=== PATIENT | female | born 1945 | race Caucasian/White ===

== ENCOUNTER 2018-08-17 15:01 | Emergency (ER) | payer MEDICARE, OTHER ==
[2018-08-17] MEDS ORDERED: FAMOTIDINE 20 MG in SODIUM CHLORIDE 0.9% 50 ML IV STA (15:43)
[2018-08-17] MEDS ORDERED: IOPAMIDOL-300 100 ML VIAL ONE (15:52)
[2018-08-17 15:54] LABS: BASOPHILS % (AUTO) 1.1 %; EOSINOPHILS # (AUTO) 0.1 10^3/uL (0.0-0.7); EOSINOPHILS % (AUTO) 3.5 %; LYMPHOCYTES # (AUTO) 0.9 10^3/uL (1.5-3.5); LYMPHOCYTES % (AUTO) 27.2 %; MEAN CORPUSCULAR HEMOGLOBIN 24.9 pg (27.0-31.0); MEAN CORPUSCULAR HGB CONC 32.2 g/dL (32.0-36.0); MEAN CORPUSCULAR VOLUME 77.2 fL (81.0-99.0); MEAN PLATELET VOLUME 8.7 fL (7.9-10.8); MONOCYTES # (AUTO) 0.3 10^3/uL (0.0-1.0); MONOCYTES % (AUTO) 8.4 %; NEUTROPHILS # (AUTO) 1.9 10^3/uL (1.5-6.6); NEUTROPHILS % (AUTO) 59.8 %; PLT - PLATELET COUNT 178 10^3/uL (130-450); RED BLOOD COUNT 4.82 10^6/uL (4.20-5.40); RED CELL DISTRIBUTION WIDTH 24.3 % (12.0-15.0); WHITE BLOOD COUNT 3.1 x10^3/uL (4.8-10.8)
--- NOTE | 2018-08-17 15:57 | ED Physician Documentation ---
PD HPI ABD PAIN - Stated complaint Stated Complaint: ABD PX - Chief complaint Chief Complaint: Abd Pain - Additional information Additional information: 73-year-old female presents the emergency department with intermittent episodes of epigastric discomfort. Today the patient had an episode of sharp stabbing epigastric pain which is now subsided. The patient has a recent history of a perforated diverticulitis which required exploratory laparotomy. Since that procedure at the end of the April 2018 the patient's had ongoing epigastric discomfort. The patient has also a hiatal hernia. The patient denies chest pain, dyspnea on exertion, vomiting, diarrhea or lower abdominal pain. No other associated symptoms Review of Systems Constitutional: denies: Fever, Chills, Fatigue Eyes: denies: Discharge Ears: denies: Ear pain Nose: denies: Congestion Throat: denies: Sore throat Cardiac: denies: Chest pain / pressure Respiratory: denies: Cough GI: reports: Abdominal Pain, Nausea. denies: Vomiting, Diarrhea : denies: Dysuria Skin: denies: Rash Musculoskeletal: denies: Neck pain Neurologic: denies: Generalized weakness PD PAST MEDICAL HISTORY - Allergies Allergies/Adverse Reactions: Allergies Allergy/AdvReac Type Severity Reaction Status Date / Time epinephrine Allergy Unknown Verified 08/17/18 15:11 erythromycin base Allergy Unknown Verified 08/17/18 15:12 indomethacin Allergy Unknown Verified 08/17/18 15:12 Latex, Natural Rubber Allergy Unknown Verified 08/17/18 15:13 Sulfa (Sulfonamide Allergy Unknown Verified 08/17/18 15:13 Antibiotics) PD ED PE NORMAL - General General: Alert and oriented X 3, No acute distress - HEENT HEENT: Atraumatic, PERRL, EOMI, Ears normal - Cardiac Cardiac: RRR, Strong equal pulses - Respiratory Respiratory: No respiratory distress, Clear bilaterally - Abdomen Abdomen: Soft, Non distended, Other - Derm Derm: Normal color - Extremities Extremities: No deformity - Neuro Neuro: Alert and oriented X 3, Normal speech - Psych Psych: Normal affect Results - Vitals Vitals: Vital Signs - 24 hr 08/17/18 15:06 Temperature 36.5 C Heart Rate 83 Respiratory 14 Rate Blood Pressure 144/81 H O2 Saturation 100 Oxygen O2 Source Room air - EKG (time done) 15:49 Rhythm: NSR Intervals: Normal AR, QRS normal QRS: Normal Ischemia: Normal ST segments - Labs Labs: Laboratory Tests 08/17/18 08/17/18 08/17/18 15:30 15:30 15:30 WBC 3.1 L RBC 4.82 Hgb 12.0 Hct 37.2 MCV 77.2 L MCH 24.9 L MCHC 32.2 RDW 24.3 H Plt Count 178 MPV 8.7 Neut # (Auto) 1.9 Lymph # (Auto) 0.9 L [place] # (Auto) 0.3 Eos # (Auto) 0.1 Baso # (Auto) 0.0 Absolute Nucleated RBC 0.00 Nucleated RBC % 0.0 Manual Slide Review Indicated Platelet Estimate NORMAL (130-450,000) Platelet Morphology NORMAL APPEARANCE RBC Morph Micro Appear 1+ SCHISTOCYTES Sodium 141 Potassium 3.4 L Chloride 105 Carbon Dioxide 26 Anion Gap 10.0 BUN 24 H Creatinine 0.4 Estimated GFR (MDRD) 157 Glucose 94 Calcium 9.1 Total Bilirubin 0.8 AST 32 ALT 32 Alkaline Phosphatase 65 Troponin I < 0.04 Total Protein 7.3 Albumin 4.3 Globulin 3.0 Albumin/Globulin Ratio 1.4 Lipase 23 Urine Color Urine Clarity Urine pH Ur Specific [place] Urine Protein Urine Glucose (UA) Urine Ketones Urine Occult Blood Urine Nitrite Urine Bilirubin Urine Urobilinogen Ur Leukocyte Esterase Ur Microscopic Review Urine Culture Comments 08/17/18 16:08 WBC RBC Hgb Hct MCV MCH MCHC RDW Plt Count MPV Neut # (Auto) Lymph # (Auto) [place] # (Auto) Eos # (Auto) Baso # (Auto) Absolute Nucleated RBC Nucleated RBC % Manual Slide Review Platelet Estimate Platelet Morphology RBC Morph Micro Appear Sodium Potassium Chloride Carbon Dioxide Anion Gap BUN Creatinine Estimated GFR (MDRD) Glucose Calcium Total Bilirubin AST ALT Alkaline Phosphatase Troponin I Total Protein Albumin Globulin Albumin/Globulin Ratio Lipase Urine Color YELLOW Urine Clarity CLEAR Urine pH 7.0 Ur Specific [place] 1.010 Urine Protein NEGATIVE Urine Glucose (UA) NEGATIVE Urine Ketones TRACE Urine Occult Blood NEGATIVE Urine Nitrite NEGATIVE Urine Bilirubin NEGATIVE Urine Urobilinogen 0.2 (NORMAL) Ur Leukocyte Esterase NEGATIVE Ur Microscopic Review NOT INDICATED Urine Culture Comments NOT INDICATED - Rads (name of study) CT abd/pelvis Radiology: Final report received, See rad report (IMPRESSION: 1. No acute intra- abdominal abnormality identified. Mild hiatal hernia seen. 2. Mild sigmoid diverticulosis without evidence of acute diverticulitis. Some mild diffuse wall thickening of the sigmoid colon may represent changes related to chronic diverticular disease. ) PD MEDICAL DECISION MAKING - ED course ED course: On reevaluation the patient is resting comfortably and appears to be in no acute distress. The patient's workup does not reveal any acute abnormality that would necessitate admission to the hospital or acute surgical consultation. Presently the patient appears appropriate for discharge with outpatient with her riddler operator as scheduled on September 01. The patient will return to the emergency department immediately for any worsening or any concerns follow-up Departure - Departure Disposition: 01 Home, Self Care Clinical Impression: Hiatal hernia, Diverticulosis Abdominal pain Qualifiers: Abdominal location: unspecified location Qualified Code(s): R10.9 - Unspecified abdominal pain Condition: Good Instructions: Abdominal Pain, Hiatal Hernia Follow-Up: Kimberly Mg MD [Primary Care Provider] - Within 1 week Comments: Please return to the emergency department for worsening symptoms or any concerns
[2018-08-17 16:01] LABS: ALBUMIN 4.3 g/dL (3.2-5.5); ALBUMIN/GLOBULIN RATIO 1.4 (1.0-2.2); BILIRUBIN,TOTAL 0.8 mg/dL (0.2-1.0); CALCIUM 9.1 mg/dL (8.5-10.3); CREATININE 0.4 mg/dL (0.4-1.0); TOTAL PROTEIN 7.3 g/dL (6.7-8.2)
[2018-08-17 16:23] LABS: BILIRUBIN,URINE NEGATIVE (NEGATIVE); GLUCOSE, URINE (UA) NEGATIVE (NEGATIVE); KETONES,URINE (UA) TRACE mg/dL (NEGATIVE); LEUKOCYTE ESTERASE, URINE NEGATIVE (NEGATIVE); NITRITE,URINE NEGATIVE (NEGATIVE); OCCULT BLOOD,URINE NEGATIVE (NEGATIVE); PROTEIN,URINE NEGATIVE (NEGATIVE); UROBILINOGEN,URINE 0.2 (NORMAL) E.U./dL (NORMAL)
[2018-08-17 16:24] LABS: CLARITY,URINE CLEAR (CLEAR)
[2018-08-17 16:39] LABS: PLATELET ESTIMATE, MANUAL NORMAL (130-450,000) (NORMAL); PLATELET MORPHOLOGY NORMAL APPEARANCE (NORMAL)
[2018-08-17] MEDS ORDERED: IOPAMIDOL-300 100 ML VIAL IVP ONE (16:58)
--- NOTE | 2018-08-17 17:03 | CT Report ---
Reason: epigastric pain Procedure Date: 08/17/2018 Accession Number: [id number] / [id number] Procedure: CT - Abdomen/Pelvis W CPT Code: FULL RESULT: EXAM: CT ABDOMEN AND PELVIS EXAM DATE: 08/17/2018 04:31 PM. CLINICAL HISTORY: Epigastric pain. COMPARISONS: None. TECHNIQUE: Routine helical CT imaging was performed through the abdomen and pelvis. IV contrast: 100 mL Isovue 300. Enteric contrast: No. Reconstructions: Coronal and sagittal. In accordance with CT protocol optimization, one or more of the following dose reduction techniques were utilized for this exam: automated exposure control, adjustment of mA and/or KV based on patient size, or use of iterative reconstructive technique. FINDINGS: Lung Bases: Mild hiatal hernia. Liver: Normal. No masses. Gallbladder/Bile Ducts: Unremarkable. Spleen: Normal. Pancreas: Normal. Adrenal Glands: Normal. Kidneys: Normal. No masses or hydronephrosis. Peritoneal Cavity/Bowel: There is mild predominantly sigmoid diverticulosis without evidence of acute diverticulitis. Some mild wall thickening is seen which may represent changes related to chronic diverticular disease. There is no obstruction or ileus. No free fluid or free air. The appendix is not visualized, however, no inflammatory changes are seen in the right lower quadrant region. Pelvic Organs: The uterus is not visualized, either surgically absent or atrophic. The bladder and visualized pelvic organs are within normal limits. Vasculature: No aneurysms or other significant abnormality. Bones: Diffuse degenerative and scoliotic changes are seen in the spine. No acute osseous abnormality is demonstrated. Other: None. IMPRESSION: 1. No acute intra-abdominal abnormality identified. Mild hiatal hernia seen. 2. Mild sigmoid diverticulosis without evidence of acute diverticulitis. Some mild diffuse wall thickening of the sigmoid colon may represent changes related to chronic diverticular disease. RADIA
[2018-08-17 17:54] VITALS: BP 139/72
== END 2018-08-17 17:55 | disposition home or self-care (01) ==
LOC: ED 15:01
DX: K57.30 Diverticulosis of large intestine without perforation or abscess without bleeding (principal); K44.9 Diaphragmatic hernia without obstruction or gangrene
CPT/HCPCS: 36415; 74177; 80053; 81003; 83690; 84484; 85025; 93005; 96365; 99283; 99284; J7040; Q9967; 81001; 87086

== ENCOUNTER 2018-08-19 14:44 | Emergency (ER) | payer MEDICARE, OTHER ==
[2018-08-19] MEDS ORDERED: ONDANSETRON 4 MG/2 ML VIAL IVP STA (16:55)
[2018-08-19] MEDS ORDERED: SODIUM CHLORIDE 0.9% 1,000 ML IV ONE (16:55)
[2018-08-19] MEDS ORDERED: FAMOTIDINE 20 MG in SODIUM CHLORIDE 0.9% 50 ML IV STA (17:08)
--- NOTE | 2018-08-19 17:12 | ED Physician Documentation ---
History of Present Illness - Stated complaint Stated Complaint: NAUSEA/DIZZY - Chief complaint Chief Complaint: Abd Pain - Additonal information Additional information: 73-year-old female presents the emergency department for evaluation of general weakness and nausea which started earlier today. The patient reports a overwhelming sense of general weakness and nausea. The patient denies any chest pain, palpitations or near syncopal episodes. The patient has a history of abdominal cramping and today reports episodes of cramping but denies any ongoing continuous abdominal discomfort. No reports of fever, vomiting, diarrhea or dysuria. Symptoms are described as moderate. No relieving factors. No other associated symptoms Review of Systems Constitutional: reports: Fatigue Eyes: denies: Discharge Ears: denies: Ear pain Nose: denies: Congestion Throat: denies: Sore throat Cardiac: denies: Chest pain / pressure Respiratory: denies: Cough GI: reports: Nausea : denies: Dysuria Skin: denies: Lesions Musculoskeletal: denies: Neck pain, Back pain Neurologic: reports: Generalized weakness PD PAST MEDICAL HISTORY - Past Medical History GI: Diverticulitis - Past Surgical History Past Surgical History: Yes General: Bowel surgery - Present Medications Home Medications: Ambulatory Orders Medication Instructions Recorded Confirmed Ondansetron Odt [Zofran] 4 mg TL Q6H PRN #30 tablet 08/19/18 - Allergies Allergies/Adverse Reactions: Allergies Allergy/AdvReac Type Severity Reaction Status Date / Time epinephrine Allergy Unknown Verified 08/19/18 14:48 erythromycin base Allergy Unknown Verified 08/19/18 14:48 indomethacin Allergy Unknown Verified 08/19/18 14:48 Latex, Natural Rubber Allergy Unknown Verified 08/19/18 14:48 Sulfa (Sulfonamide Allergy Unknown Verified 08/19/18 14:48 Antibiotics) - Social History Does the pt smoke?: No Smoking Status: Never smoker Does the pt drink ETOH?: No Does the pt have substance abuse?: No PD ED PE NORMAL - General General: Alert and oriented X 3, No acute distress - HEENT HEENT: Atraumatic, PERRL, EOMI, Ears normal, Pharynx benign - Cardiac Cardiac: RRR, Strong equal pulses - Respiratory Respiratory: No respiratory distress, Clear bilaterally - Abdomen Abdomen: Soft, Non tender, Non distended - Derm Derm: Normal color - Extremities Extremities: No deformity - Neuro Neuro: Alert and oriented X 3, Normal speech - Psych Psych: Normal affect Results - Vitals Vitals: Vital Signs - 24 hr 08/19/18 08/19/18 08/19/18 14:48 18:02 20:28 Temperature 36.6 C 37.2 C 37.1 C Heart Rate 98 80 95 Respiratory 16 20 14 Rate Blood Pressure 121/97 H 123/83 H 122/74 O2 Saturation 100 100 98 Oxygen O2 Source Room air - EKG (time done) 17:16 Rate: Rate (enter#) Rhythm: NSR Intervals: Normal [place] QRS: Normal Ischemia: Normal ST segments - Labs Labs: Laboratory Tests 08/19/18 08/19/18 08/19/18 17:10 17:10 17:10 WBC 8.9 RBC 5.18 Hgb 13.1 Hct 40.2 MCV 77.7 L MCH 25.2 L MCHC 32.5 RDW 24.3 H Plt Count 168 MPV 9.2 Neut # (Auto) 8.3 H Lymph # (Auto) 0.3 L [place] # (Auto) 0.3 Eos # (Auto) 0.0 Baso # (Auto) 0.0 Absolute Nucleated RBC 0.01 Nucleated RBC % 0.1 Manual Slide Review Indicated WBC Morphology NORMAL APPEARANCE Platelet Estimate NORMAL (130-450,000) Platelet Morphology NORMAL APPEARANCE RBC Morph Micro Appear 1+ MICROCYTOSIS Sodium 139 Potassium 3.6 Chloride 105 Carbon Dioxide 25 Anion Gap 9.0 BUN 32 H Creatinine 0.3 L Estimated GFR (MDRD) 219 Glucose 100 Calcium 9.3 Total Bilirubin 0.7 AST 33 ALT 29 Alkaline Phosphatase 71 Troponin I < 0.04 Total Protein 7.6 Albumin 4.4 Globulin 3.2 Albumin/Globulin Ratio 1.4 Lipase 26 Urine Color Urine Clarity Urine pH Ur Specific [place] Urine Protein Urine Glucose (UA) Urine Ketones Urine Occult Blood Urine Nitrite Urine Bilirubin Urine Urobilinogen Ur Leukocyte Esterase Ur Microscopic Review Urine Culture Comments Influenza A (Rapid) Influenza B (Rapid) 08/19/18 08/19/18 17:56 19:00 WBC RBC Hgb Hct MCV MCH MCHC RDW Plt Count MPV Neut # (Auto) Lymph # (Auto) [place] # (Auto) Eos # (Auto) Baso # (Auto) Absolute Nucleated RBC Nucleated RBC % Manual Slide Review WBC Morphology Platelet Estimate Platelet Morphology RBC Morph Micro Appear Sodium Potassium Chloride Carbon Dioxide Anion Gap BUN Creatinine Estimated GFR (MDRD) Glucose Calcium Total Bilirubin AST ALT Alkaline Phosphatase Troponin I Total Protein Albumin Globulin Albumin/Globulin Ratio Lipase Urine Color YELLOW Urine Clarity CLEAR Urine pH 7.0 Ur Specific [place] 1.015 Urine Protein NEGATIVE Urine Glucose (UA) NEGATIVE Urine Ketones 15 H Urine Occult Blood NEGATIVE Urine Nitrite NEGATIVE Urine Bilirubin NEGATIVE Urine Urobilinogen 0.2 (NORMAL) Ur Leukocyte Esterase NEGATIVE Ur Microscopic Review NOT INDICATED Urine Culture Comments NOT INDICATED Influenza A (Rapid) Negative Influenza B (Rapid) Negative PD MEDICAL DECISION MAKING - ED course ED course: On reevaluation the patient is resting comfortably appears to be in no acute distress. Presently the patient appears appropriate for discharge and ongoing outpatient management. The patient will return to the emergency department immediately for any worsening or any concerns. Otherwise patient will follow up with primary care Departure - Departure Disposition: 01 Home, Self Care Clinical Impression: Weakness Nausea & vomiting Qualifiers: Vomiting type: unspecified Vomiting Intractability: non-intractable Qualified Code(s): R11.2 - Nausea with vomiting, unspecified Condition: Good Instructions: ED Nausea Vomiting Ch, Abdominal Pain Follow-Up: Kimberly Mg MD [Primary Care Provider] - Within 1 week Prescriptions: Ondansetron Odt [Zofran] 4 mg TL Q6H PRN #30 tablet PRN Reason: Nausea / Vomiting Comments: Please return to the emergency department for worsening symptoms or any concerns
[2018-08-19 17:30] LABS: BASOPHILS % (AUTO) 0.3 %; EOSINOPHILS % (AUTO) 0.5 %; HGB - HEMOGLOBIN 13.1 g/dL (12.0-16.0); LYMPHOCYTES # (AUTO) 0.3 10^3/uL (1.5-3.5); LYMPHOCYTES % (AUTO) 3.1 %; MEAN CORPUSCULAR HEMOGLOBIN 25.2 pg (27.0-31.0); MEAN CORPUSCULAR HGB CONC 32.5 g/dL (32.0-36.0); MEAN CORPUSCULAR VOLUME 77.7 fL (81.0-99.0); MEAN PLATELET VOLUME 9.2 fL (7.9-10.8); MONOCYTES # (AUTO) 0.3 10^3/uL (0.0-1.0); MONOCYTES % (AUTO) 3.4 %; NEUTROPHILS # (AUTO) 8.3 10^3/uL (1.5-6.6); NEUTROPHILS % (AUTO) 92.7 %; PLT - PLATELET COUNT 168 10^3/uL (130-450); RED BLOOD COUNT 5.18 10^6/uL (4.20-5.40); RED CELL DISTRIBUTION WIDTH 24.3 % (12.0-15.0); WHITE BLOOD COUNT 8.9 x10^3/uL (4.8-10.8)
[2018-08-19 17:49] LABS: PLATELET ESTIMATE, MANUAL NORMAL (130-450,000) (NORMAL); PLATELET MORPHOLOGY NORMAL APPEARANCE (NORMAL)
[2018-08-19 17:50] LABS: ALBUMIN 4.4 g/dL (3.2-5.5); ALBUMIN/GLOBULIN RATIO 1.4 (1.0-2.2); BILIRUBIN,TOTAL 0.7 mg/dL (0.2-1.0); CALCIUM 9.3 mg/dL (8.5-10.3); CREATININE 0.3 mg/dL (0.4-1.0); TOTAL PROTEIN 7.6 g/dL (6.7-8.2)
[2018-08-19] MEDS: ONDANSETRON ODT 4 MG TABLET TL STA ×2 (18:03→20:50)
[2018-08-19] MEDS ORDERED: METOCLOPRAMIDE 10 MG/2 ML VIAL IVP STA (18:04)
[2018-08-19 19:11] LABS: BILIRUBIN,URINE NEGATIVE (NEGATIVE); GLUCOSE, URINE (UA) NEGATIVE (NEGATIVE); KETONES,URINE (UA) 15 mg/dL (NEGATIVE); LEUKOCYTE ESTERASE, URINE NEGATIVE (NEGATIVE); NITRITE,URINE NEGATIVE (NEGATIVE); OCCULT BLOOD,URINE NEGATIVE (NEGATIVE); PROTEIN,URINE NEGATIVE (NEGATIVE); UROBILINOGEN,URINE 0.2 (NORMAL) E.U./dL (NORMAL)
[2018-08-19 19:13] LABS: CLARITY,URINE CLEAR (CLEAR)
[2018-08-19 20:28] VITALS: BP 122/74
[2018-08-19] MEDS ORDERED: diphenhydrAMINE INJ 50 MG/ML VIAL IVP STA (20:35)
[2018-08-19] MEDS ORDERED: PROMETHAZINE INJ 25 MG in SODIUM CHLORIDE 0.9% 50 ML IV STA (20:35)
[2018-08-19] MEDS ORDERED: ONDANSETRON ODT 4 MG Prepack 2 TL PRN (20:48)
== END 2018-08-19 20:55 | disposition home or self-care (01) ==
LOC: ED 14:44
DX: R53.1 Weakness (principal); R11.2 Nausea with vomiting, unspecified
CPT/HCPCS: 36415; 80053; 81003; 83690; 84484; 85025; 87275; 87276; 93005; 96365; 96375; 99283; J2765; J7040; Q0162; 81001; 87086

== ENCOUNTER 2018-12-27 13:15 | Outpatient (CLI) | payer MEDICARE, OTHER ==
[2018-12-27 13:38] LABS: BILIRUBIN,URINE NEGATIVE (NEGATIVE); LEUKOCYTE ESTERASE, URINE MODERATE (NEGATIVE); NITRITE,URINE POSITIVE (NEGATIVE); OCCULT BLOOD,URINE NEGATIVE (NEGATIVE); PROTEIN,URINE >=300 mg/dL (NEGATIVE)
[2018-12-27 13:54] LABS: CLARITY,URINE CLEAR (CLEAR); RBC,URINE None Seen /HPF (0-5)
[2018-12-27 13:55] LABS: BACTERIA,URINE Moderate /HPF (None Seen); CASTS, URINE 0-2 Cellular Casts /LPF; SQUAMOUS EPITHELIAL CELL,UR NONE SEEN (<= Few)
== END 2018-12-27 13:16 | disposition home or self-care (01) ==
LOC: LAB 13:15
PROVIDERS: ATTEND Urology
DX: R30.0 Dysuria (principal)
CPT/HCPCS: 81001; 87077; 87086; 87181

== ENCOUNTER 2019-04-09 07:48 | Emergency (ER) | payer MEDICARE, OTHER ==
--- NOTE | 2019-04-09 08:08 | ED Physician Documentation ---
PD HPI FEMALE - Stated complaint Stated Complaint: FEMALE - Chief complaint Chief Complaint: UTI - History obtained from History obtained from: Patient - History of Present Illness Timing - onset: How many days ago (3) Timing - duration: Days (3) Timing - details: Gradual onset, Still present Associated symptoms: Dysuria, Urinary frequency. No: Fever, Abdominal pain, Back pain, Hematuria Similar symptoms before: Diagnosis Recently seen: Clinic - Additional information Additional information: This is a 74-year-old woman who presents with complaints that she was diagnosed with urinary tract infection on Wednesday at a clinic they prescribed an antibiotic that is not covered by her insurance and is over $2000 in the liquid form. She cannot swallow pills because she is a history of polio that affects her ability to swallow. For that reason she also drinks limited amounts of water. Patient has not had any fever. Denies any abdominal pain. Denies back pain or nausea. There is significant burning with urination but no hematuria. She did develop some diarrhea last night but she thinks that in response to everything associated with the stress of these recurrent UTIs since she was hospitalized for sepsis last April. She did have a cystoscopy by urologist in November and then she got a bladder infection 3 days later. That ended up being cleared with amoxicillin. On March 27 she went to a clinic and had a positive urinalysis but no culture was obtained. She was treated with amoxicillin for 7 days that ended on April 03 and for 3 days she felt fine until the symptoms recurred again 3 days ago. Review of Systems Constitutional: denies: Fever GI: denies: Abdominal Pain, Nausea, Vomiting : reports: Dysuria. denies: Unable to Void, Hematuria Skin: denies: Rash Musculoskeletal: denies: Back pain Neurologic: reports: Other (She has a history of bulbar and spinal polio. She uses crutches to ambulate) PD PAST MEDICAL HISTORY - Past Medical History GI: Diverticulitis - Past Surgical History Past Surgical History: Yes General: Bowel surgery - Present Medications Home Medications: Ambulatory Orders Medication Instructions Recorded Confirmed Ondansetron Odt [Zofran] 4 mg TL Q6H PRN #30 tablet 08/19/18 Cephalexin Suspension [Keflex] 500 mg PO QID #400 ml 04/09/19 - Allergies Allergies/Adverse Reactions: Allergies Allergy/AdvReac Type Severity Reaction Status Date / Time epinephrine Allergy Unknown Verified 04/09/19 08:03 erythromycin base Allergy Unknown Verified 04/09/19 08:03 indomethacin Allergy Unknown Verified 04/09/19 08:03 Latex, Natural Rubber Allergy Unknown Verified 04/09/19 08:03 Sulfa (Sulfonamide Allergy Unknown Verified 04/09/19 08:03 Antibiotics) - Social History Does the pt smoke?: No Smoking Status: Never smoker Does the pt drink ETOH?: No Does the pt have substance abuse?: No PD ED PE NORMAL - Vitals Vital signs reviewed: Yes - General General: Alert and oriented X 3, No acute distress, Well developed/nourished - HEENT HEENT: Atraumatic, Moist mucous membranes, Other (No scleral icterus) - Abdomen Abdomen: Soft, Non tender - Back Back: No CVA TTP, Other (There is significant scoliosis.) - Derm Derm: Normal color, No rash - Neuro Neuro: Alert and oriented X 3, tennis court attendant 2-12 intact, Normal speech - Psych Psych: Normal mood, Normal affect Results - Vitals Vitals: Vital Signs - 24 hr 04/09/19 08:01 Temperature 37.0 C Heart Rate 93 Respiratory 15 Rate Blood Pressure 144/67 H O2 Saturation 95 Oxygen O2 Source Room air - Labs Labs: Laboratory Tests 04/09/19 08:05 Urine Color DK. ORANGE Urine Clarity HAZY Urine pH Ur Specific [place] Urine Protein Urine Glucose (UA) Urine Ketones Urine Occult Blood Urine Nitrite Urine Bilirubin COLOR INTERFERENCE Urine Urobilinogen Ur Leukocyte Esterase Urine RBC 0-5 Urine WBC >25 H Urine WBC Clumps PRESENT Ur Epithelial Cells FEW Transitional Ur Squamous Epith Cells FEW Squamous Urine Bacteria Moderate H Ur Microscopic Review INDICATED Urine Culture Comments INDICATED PD MEDICAL DECISION MAKING - ED course Complexity details: reviewed results, d/w patient ED course: Patient does have a urinary tract infection. Culture has been ordered. Will empirically start her on Keflex liquid 4 times a day for 10 days. Will adjust if needed based on the culture. I recommended that she have the urine retested after finishing the antibiotic to make sure that the infection has cleared. She needs to try and push herself to drink as much water as possible. Departure - Departure Disposition: 01 Home, Self Care Clinical Impression: Urinary tract infection Qualifiers: Urinary tract infection type: acute cystitis Hematuria presence: without hematuria Qualified Code(s): N30.00 - Acute cystitis without hematuria Condition: Good Instructions: ED UTI Cystitis Female Follow-Up: Kimberly Mg MD [Primary Care Provider] - Prescriptions: Cephalexin Suspension [Keflex] 500 mg PO QID #400 ml Comments: Take the antibiotic as prescribed. Drink as much water as you can to flush through the kidneys. Take vitamin C 500 mg 3 times a day. Continue your probiotics and consider switching tablets to get an array of bacteria. Consider a cranberry supplement as a preventative for further urinary tract infections. You should follow-up with your primary care provider and have the urine retested after you finish this antibiotic to make sure that the infection has been cleared. We have cultured the urine and will contact you if we need to change the antibiotic. Follow-up if your symptoms are worsening to include back pain, fever, vomiting or other problems arise.
[2019-04-09 08:28] LABS: CLARITY,URINE HAZY (CLEAR)
[2019-04-09 08:29] LABS: BILIRUBIN,URINE COLOR INTERFERENCE (NEGATIVE)
[2019-04-09 08:41] LABS: RBC,URINE 0-5 /HPF (0-5); SQUAMOUS EPITHELIAL CELL,UR FEW Squamous (<= Few); WBC CLUMPS,URINE PRESENT
[2019-04-09 08:44] LABS: BACTERIA,URINE Moderate /HPF (None Seen)
[2019-04-09] MEDS ORDERED: HYDROmorphone 1 MG/ML CARPUJECT IVP STA (09:05)
[2019-04-09] MEDS ORDERED: ONDANSETRON 4 MG/2 ML VIAL IVP STA (09:05)
[2019-04-09 09:12] VITALS: BP 142/66
== END 2019-04-09 09:13 | disposition home or self-care (01) ==
LOC: ED 07:48
DX: N30.00 Acute cystitis without hematuria (principal)
CPT/HCPCS: 81001; 81003; 87086; 87181; 99283; 99284

== ENCOUNTER 2019-04-14 00:32 | Inpatient (IN) | payer MEDICARE, OTHER ==
--- NOTE | 2019-04-14 00:50 | ED Physician Documentation ---
PD HPI ABD PAIN - Stated complaint Stated Complaint: FEVER/ABD PX - Chief complaint Chief Complaint: Abd Pain - History obtained from History obtained from: Patient - History of Present Illness Timing - onset: Today Timing - duration: Hours Timing - details: Gradual onset Pain level now: 5 Quality: Pain Location: RLQ Radiation: Other (does not radiate) Improved by: Laying still Worsened by: Moving, Palpation Associated symptoms: Fever (100.6). No: Nausea, Vomiting, Diarrhea, Constipation Similar symptoms before: Has not had sx before Recently seen: Emergency Dept - Additional information Additional information: T+R from this ED 4 days ago for UTI, and continues to take the keflex as prescribed. Urine culture grew E.Coli which is sensitive to cefazolin. She says her symptoms of urinary frequency and burning dysuria have significantly improved. She returns because part of d/c instructions were to return if fever, and she has developed 100.6 fever tonight along with mild RLQ pain which she has had since this morning. Review of Systems Constitutional: reports: Fever, Chills. denies: Sweats Eyes: reports: Reviewed and negative Ears: reports: Reviewed and negative Nose: reports: Reviewed and negative Throat: reports: Reviewed and negative Cardiac: reports: Reviewed and negative Respiratory: reports: Reviewed and negative GI: reports: Abdominal Pain. denies: Nausea, Vomiting, Constipation, Diarrhea : reports: Dysuria, Frequency Skin: reports: Reviewed and negative Musculoskeletal: denies: Back pain Neurologic: reports: Reviewed and negative PD PAST MEDICAL HISTORY - Past Medical History Past Medical History: Yes GI: Diverticulitis - Past Surgical History Past Surgical History: Yes General: Bowel surgery - Present Medications Home Medications: Ambulatory Orders Medication Instructions Recorded Confirmed Cephalexin Suspension [Keflex] 500 mg PO QID #400 ml 04/09/19 04/14/19 Aspirin Chewable [St Prince 81 mg PO DAILY 04/14/19 04/14/19 Aspirin] Calcium Carb/Vitamin D3/Vit K1 1 cap PO DAILY 04/14/19 04/14/19 [Viactiv 650 mg-12.5 Mcg Chew] Meloxicam [Qmiiz Odt] 7.5 mg PO DAILY 04/14/19 04/14/19 [place]-3/Dha/Epa/Fish Oil [Fish Oil 1 cap PO DAILY 11/15/19 11/15/19 1,000 mg Softgel] Omeprazole 40 mg PO DAILY 04/14/19 04/14/19 - Allergies Allergies/Adverse Reactions: Allergies Allergy/AdvReac Type Severity Reaction Status Date / Time epinephrine Allergy Unknown Verified 04/14/19 00:50 erythromycin base Allergy Rash Verified 04/14/19 09:15 indomethacin Allergy Unknown Verified 04/14/19 00:50 Latex, Natural Rubber Allergy Rash Verified 04/14/19 09:15 Sulfa (Sulfonamide Allergy Dizziness Verified 04/14/19 09:15 Antibiotics) - Social History Does the pt smoke?: No Smoking Status: Never smoker Does the pt drink ETOH?: No Does the pt have substance abuse?: No PD ED PE NORMAL - Vitals Vital signs reviewed: Yes - General General: Alert and oriented X 3, No acute distress, Well developed/nourished - HEENT HEENT: Moist mucous membranes - Neck Neck: Supple, no meningeal sign - Cardiac Cardiac: RRR, No murmur - Respiratory Respiratory: No respiratory distress, Clear bilaterally - Abdomen Abdomen: Soft, Non distended, Other (RLQ tenderness without rebound or guarding) - Back Back: No CVA TTP - Derm Derm: Normal color, Warm and dry Results - Vitals Vitals: Vital Signs - 24 hr 04/14/19 04/14/19 04/14/19 00:35 00:50 03:08 Temperature 36.8 C 36.8 C Heart Rate 109 H 99 82 Respiratory 16 15 15 Rate Blood Pressure 131/80 H 140/61 H 120/62 O2 Saturation 98 99 100 04/14/19 04/14/19 06:24 09:19 Temperature 37.4 C 38.8 C H Heart Rate 99 99 Respiratory 15 20 Rate Blood Pressure 115/66 113/53 L O2 Saturation 100 97 Oxygen O2 Source Room air - Labs Labs: Laboratory Tests 04/14/19 04/14/19 04/14/19 00:41 00:55 00:55 WBC 11.7 H RBC 3.68 L Hgb 10.9 L Hct 36.1 L MCV 98.1 MCH 29.6 MCHC 30.2 L RDW 14.8 Plt Count 208 MPV 10.4 Neut # (Auto) 10.1 H Lymph # (Auto) 0.7 L [place] # (Auto) 0.7 Eos # (Auto) 0.1 Baso # (Auto) 0.1 Absolute Nucleated RBC 0.00 Nucleated RBC % 0.0 Sodium 139 Potassium 3.5 Chloride 103 Carbon Dioxide 27 Anion Gap 9.0 BUN 25 H Creatinine 0.5 Estimated GFR (MDRD) 121 Glucose 113 H Calcium 9.0 Total Bilirubin 2.4 H AST 31 ALT 30 Alkaline Phosphatase 68 Total Protein 7.4 Albumin 4.1 Globulin 3.3 Albumin/Globulin Ratio 1.2 Lipase 30 Urine Color YELLOW Urine Clarity CLEAR Urine pH 7.5 Ur Specific [place] 1.010 Urine Protein NEGATIVE Urine Glucose (UA) NEGATIVE Urine Ketones TRACE Urine Occult Blood TRACE-INTA Urine Nitrite NEGATIVE Urine Bilirubin NEGATIVE Urine Urobilinogen 0.2 (NORMAL) Ur Leukocyte Esterase NEGATIVE Ur Microscopic Review NOT INDICATED Urine Culture Comments NOT INDICATED - Rads (name of study) CT A/P Radiology: Prelim report reviewed, See rad report PD MEDICAL DECISION MAKING - ED course Complexity details: reviewed old records, reviewed results, re-evaluated patient, considered differential, d/w patient ED course: D/W Dr. Dunlap. Plan is to hold in ED until the AM and reevaluate at that time. Chief concern is whether the CT represents early appendicitis, as the results are equivocal. During ED stay, her RLQ pain gradually worsened as did her tenderness on exam. Dr. Dunlap evaluated patient in ED and plan is to perform appendectomy. Departure - Departure Disposition: ED Transfer to [facility]
[2019-04-14 00:55] LABS: BILIRUBIN,URINE NEGATIVE (NEGATIVE); GLUCOSE, URINE (UA) NEGATIVE (NEGATIVE); KETONES,URINE (UA) TRACE mg/dL (NEGATIVE); LEUKOCYTE ESTERASE, URINE NEGATIVE (NEGATIVE); NITRITE,URINE NEGATIVE (NEGATIVE); OCCULT BLOOD,URINE TRACE-INTA (NEGATIVE); PH,URINE 7.5 PH (5.0-7.5); PROTEIN,URINE NEGATIVE (NEGATIVE); UROBILINOGEN,URINE 0.2 (NORMAL) E.U./dL (NORMAL)
[2019-04-14 01:01] LABS: CLARITY,URINE CLEAR (CLEAR)
[2019-04-14] MEDS ORDERED: IOVERSOL 320 100 ML VIAL IVP ONE ×2 (01:23→02:12)
[2019-04-14 01:30] LABS: BASOPHILS # (AUTO) 0.1 10^3/uL (0.0-0.1); BASOPHILS % (AUTO) 0.4 %; EOSINOPHILS # (AUTO) 0.1 10^3/uL (0.0-0.7); EOSINOPHILS % (AUTO) 1.2 %; HGB - HEMOGLOBIN 10.9 g/dL (12.0-16.0); LYMPHOCYTES # (AUTO) 0.7 10^3/uL (1.5-3.5); LYMPHOCYTES % (AUTO) 5.5 %; MEAN CORPUSCULAR HEMOGLOBIN 29.6 pg (27.0-31.0); MEAN CORPUSCULAR HGB CONC 30.2 g/dL (32.0-36.0); MEAN CORPUSCULAR VOLUME 98.1 fL (81.0-99.0); MEAN PLATELET VOLUME 10.4 fL (7.9-10.8); MONOCYTES # (AUTO) 0.7 10^3/uL (0.0-1.0); MONOCYTES % (AUTO) 5.6 %; NEUTROPHILS # (AUTO) 10.1 10^3/uL (1.5-6.6); NEUTROPHILS % (AUTO) 86.5 %; PLT - PLATELET COUNT 208 10^3/uL (130-450); RED BLOOD COUNT 3.68 10^6/uL (4.20-5.40); RED CELL DISTRIBUTION WIDTH 14.8 % (12.0-15.0); WHITE BLOOD COUNT 11.7 x10^3/uL (4.8-10.8)
[2019-04-14 01:41] LABS: ALBUMIN 4.1 g/dL (3.2-5.5); ALBUMIN/GLOBULIN RATIO 1.2 (1.0-2.2); BILIRUBIN,TOTAL 2.4 mg/dL (0.2-1.0); CREATININE 0.5 mg/dL (0.4-1.0); TOTAL PROTEIN 7.4 g/dL (6.7-8.2)
--- NOTE | 2019-04-14 02:31 | CT Report ---
Reason: RLQ pain, tenderness Procedure Date: 04/14/2019 Accession Number: [id number] / [id number] Procedure: CT - Abdomen/Pelvis W CPT Code: Addended Final Report FULL RESULT: EXAM: CT ABDOMEN AND PELVIS EXAM DATE: 04/14/2019 02:08 AM CLINICAL HISTORY: RLQ pain, tenderness. COMPARISONS: ABDOMEN/PELVIS W/ 08/17/2018 4:16 PM. TECHNIQUE: Routine helical CT imaging was performed through the abdomen and pelvis. IV contrast: 100 mL Optiray 320. Enteric contrast: No. Reconstructions: Coronal and sagittal. In accordance with CT protocol optimization, one or more of the following dose reduction techniques were utilized for this exam: automated exposure control, adjustment of mA and/or KV based on patient size, or use of iterative reconstructive technique. FINDINGS: FINDINGS: ABDOMEN: Liver: No significant abnormality. Stomach and Distal Esophagus: There is a small hiatal hernia. Gallbladder: No significant abnormality. Bile Ducts: No significant abnormality. Pancreas: No significant abnormality. Spleen: No significant abnormality. Kidneys: No suspicious solid appearing lesion. No hydronephrosis. Adrenals: No significant abnormality. Bowel: No obstruction. Long segment wall thickening of the sigmoid colon is noted with adjacent subtle stranding (image 63 series 3). There is moderate to severe sigmoid diverticulosis. Moderate to large amount of retained colonic fecal matter is noted. Moderate wall thickening of the cecum is noted (image 60 series 3). Appendix: Not identified. Lymph Nodes: No pathologically enlarged nodes. Vasculature: Normal caliber aorta. Fluid: No significant free fluid. Abdominal Wall: No significant abnormality. Other: No significant abnormality. PELVIS: Uterus and Ovaries: Surgically absent uterus. Ovaries are not visualized, possibly surgically absent as well. Bladder: No significant abnormality. Lymph Nodes: No pathologically enlarged nodes. Fluid: No significant free fluid. Other: Atrophy of the left lower extremity noted, probably a sequela of hemiparesis. BONES: No suspicious bony lesions. Moderate to severe left convex scoliosis of the lumbar spine centered at L2-L3. Multilevel degenerative change. LOWER CHEST: No significant consolidation or effusion. IMPRESSION: 1. Moderate wall thickening at the base of the cecum is noted. This is worrisome for an infectious process. Neoplasm is difficult to exclude with certainty. 2. Appendix is not identified with certainty. 3. There is long segment wall thickening of the sigmoid colon with subtle adjacent stranding. This may represent mild chronic diverticulitis. There is a component of this that is secondary to chronic smooth muscle hypertrophy from constipation. There is a large amount of retained colonic fecal matter, suggestive of constipation. 4. There is a small hiatal hernia. 5. No small bowel obstruction demonstrated. No kidney stone or hydronephrosis. RADIA ADDENDUM: 04/14/19 03:[address] Barney Galindo at 2:45 AM. With regards to the cecal abnormality, as mentioned on my prior report, infection and neoplasm are in the differential diagnosis. Since the appendix could not be identified with certainty, a combined appendiceal and cecal infectious process may also be responsible. Correlation with recent colonoscopy findings would be helpful.
--- NOTE | 2019-04-14 06:02 | Ultrasound Report ---
Reason: elevated bilirubin, abdominal pain Procedure Date: 04/14/2019 Accession Number: [id number] / [id number] Procedure: US - Abdomen Limited CPT Code: Final Report FULL RESULT: EXAM: ABDOMEN ULTRASOUND LIMITED, RUQ EXAM DATE: 04/14/2019 05:44 AM CLINICAL HISTORY: Elevated bilirubin, abdominal pain. COMPARISON: ABDOMEN/PELVIS W/ 04/14/2019 1:59 AM. TECHNIQUE: Real-time scanning was performed with static images obtained. FINDINGS: Liver: Echotexture within normal limits without suspicious abnormality seen. Main portal vein flow: Hepatopetal. Gallbladder: No stones, wall thickening, or sonographic Saul's sign. Biliary System: CBD measures 5 mm. No intrahepatic or extrahepatic ductal dilatation. Other: Right extrarenal pelvis without nithin hydronephrosis. No hydronephrosis on earlier CT either. IMPRESSION: Negative right upper quadrant ultrasound. RADIA
[2019-04-14] MEDS ORDERED: LACTATED RINGERS 1,000 ML IV STA (07:46)
[2019-04-14] MEDS ORDERED: PIPERACILLIN/TAZOBACTAM 3.375 GM in SODIUM CHLORIDE 0.9% MINIBAG 100 ML IV STA (07:47)
[2019-04-14] MEDS ORDERED: LACTATED RINGERS 1,000 ML IV ONE ×5 (08:56→16:14)
[2019-04-14] MEDS ORDERED: ENOXAPARIN 30 MG/0.3 ML SYRINGE SUBQ ONE (10:00)
[2019-04-14] MEDS ORDERED: ACETAMINOPHEN 1,000 MG/100 ML 100 ML IV ONE (10:17)
--- NOTE | 2019-04-14 11:16 | ANESTHESIA ---
Pre-Anesthesia VS, & Labs - Diagnosis acute appendicitis - Procedure laparoscopic appendectomy Vital Signs: Temp Pulse Resp BP Pulse Ox 36 C L 67 16 153/79 H 100 04/14/19 09:24 04/14/19 09:24 04/14/19 09:24 04/14/19 09:24 04/14/19 09:24 Height 5 ft 2 in Weight (kg) 56.5 kg Body Mass Index 22.8 - NPO >8 hours - Is Patient ?: No - Lab Results Current Lab Results: Laboratory Tests 04/14/19 00:55: Sodium 139, Potassium 3.5, Chloride 103, Carbon Dioxide 27, Anion Gap 9.0, BUN 25 H, Creatinine 0.5, Estimated GFR (MDRD) 121, Glucose 113 H , Calcium 9.0, Total Bilirubin 2.4 H, AST 31, ALT 30, Alkaline Phosphatase 68, Total Protein 7.4, Albumin 4.1, Globulin 3.3, Albumin/Globulin Ratio 1.2, Lipase 30 04/14/19 00:55: WBC 11.7 H, RBC 3.68 L, Hgb 10.9 L, Hct 36.1 L, MCV 98.1, MCH 29.6, MCHC 30.2 L, RDW 14.8, Plt Count 208, MPV 10.4, Neut # (Auto) 10.1 H, Lymph # (Auto) 0.7 L, [place] # (Auto) 0.7, Eos # (Auto) 0.1, Baso # (Auto) 0.1, Absolute Nucleated RBC 0.00, Nucleated RBC % 0.0 Fish Bones: 04/14/19 00:55 04/14/19 00:55 Home Medications and Allergies Home Medications: Ambulatory Orders Aspirin Chewable [St Prince Aspirin] 81 mg PO DAILY 04/14/19 Calcium Carb/Vitamin D3/Vit K1 [Viactiv 650 mg-12.5 Mcg Chew] 1 cap PO DAILY 04/14/19 Meloxicam [Qmiiz Odt] 7.5 mg PO DAILY 04/14/19 [place]-3/Dha/Epa/Fish Oil [Fish Oil 1,000 mg Softgel] 1 cap PO DAILY 04/14/19 Omeprazole 40 mg PO DAILY 04/14/19 Active Medications Lactated Ringer's (Lr) 1,000 mls @ 150 mls/hr IV .Q6H40M STA Stop: 04/14/19 14:25 Last Admin: 04/14/19 08:28 Dose: 150 mls/hr Aspirin Chewable [[facility] Prince Aspirin] 81 mg PO DAILY 04/14/19 Calcium Carb/Vitamin D3/Vit K1 [Viactiv 650 mg-12.5 Mcg Chew] 1 cap PO DAILY 04/14/19 Meloxicam [Qmiiz Odt] 7.5 mg PO DAILY 04/14/19 [place]-3/Dha/Epa/Fish Oil [Fish Oil 1,000 mg Softgel] 1 cap PO DAILY 04/14/19 Omeprazole 40 mg PO DAILY 04/14/19 Allergies/Adverse Reactions: Allergies Allergy/AdvReac Type Severity Reaction Status Date / Time epinephrine Allergy Unknown Verified 04/14/19 00:50 erythromycin base Allergy Rash Verified 04/14/19 09:15 indomethacin Allergy Unknown Verified 04/14/19 00:50 Latex, Natural Rubber Allergy Rash Verified 04/14/19 09:15 Sulfa (Sulfonamide Allergy Dizziness Verified 04/14/19 09:15 Antibiotics) Anes History & Medical History - Anesthetic History Anesthesia Complications: reports: No previous complications - Medical History Cardiovascular: reports: None Pulmonary: reports: None Gastrointestinal: reports: GERD, Colon polyps, Diverticulitis, Other Urinary: reports: Chronic bladder infection Musculoskeletal: reports: Scoliosis, Chronic back pain, Other (hx bulbar polio) Endocrine/Autoimmune: reports: None Skin: reports: None Smoking Status: Never smoker - Surgical History General: Bowel surgery Gynecologic: Hysterectomy Exam General: Alert Dental: WNL Mouth Opening: Greater than 4 Fingerbreadths Mallampati classification: II Thyromental Distance: greater than 6 cm Respiratory: Lungs clear Cardiovascular: Regular rate, Normal S1, Normal S2 Mental/Cognitive Status: Alert/Oriented X3 Plan Anesthesia Type: General Consent for Procedure(s) Verified and Reviewed: Yes Code Status: Attempt Resuscitation ASA classification: 3-Severe systemic disease Is this case an emergency?: Yes
[2019-04-14] MEDS ORDERED: BUPIVACAINE 0.5% PF 30 ML VIAL ONE (12:36)
[2019-04-14] MEDS ORDERED: LIDOCAINE 1%-EPI 1:100000 20 ML MDV ONE (12:36)
[2019-04-14] MEDS ORDERED: BUPIVACAINE 0.5% PF 30 ML VIAL SUBQ ONE ×2 (14:53)
[2019-04-14] MEDS ORDERED: SUGAMMADEX 200 MG/2 ML VIAL IVP ONE (15:58)
--- NOTE | 2019-04-14 16:12 | IMMEDIATE POSTOPERATIVE NOTE ---
Immediate Postoperative Note - Procedure Note Procedure Date: 04/14/19 Pre-Op Diagnosis: Acute appendicitis Procedure: Lap appy Post-Op Diagnosis: Possible early appendicitis Primary Surgeon: Fabi Fitting Room Maintenance Mechanic: Peter Gonzales Anesthesia Type: General ET tube, Local Findings: Multiple filmy interloop adhesions and retrocecal appendix. No nithin purulence. Dense adhesions elsewhere. Complications: No complications Estimated Blood Loss (in cc): 5 Specimens and Cultures: vermiform appendix Plan of Care: Observe overnight and cont Abx
[2019-04-14] MEDS ORDERED: ONDANSETRON 4 MG/2 ML VIAL IVP PRN (16:52)
[2019-04-14] MEDS: HYDROmorphone 0.5 MG/0.5 ML SYRINGE ONE ×2 (16:53→16:55)
[2019-04-14] MEDS: HYDROcod/ACETAM 5/325 MG TABLET PO PRN (17:58)
[2019-04-14] MEDS: LACTATED RINGERS 1,000 ML IV SCH ×2 (18:05→23:53)
--- NOTE | 2019-04-14 19:22 | OPERATIVE REPORT ---
DATE OF SERVICE: 04/14/2019 Physician: lAan Dunlap DO PREOPERATIVE DIAGNOSIS: Possible early appendicitis. POSTOPERATIVE DIAGNOSIS: Possible early appendicitis. PATHOLOGY REPORT: Pending. PROCEDURE: Laparoscopic appendectomy. SURGEON: Alan Dunlap DO RECRUITMENT ADVERTISING MANAGER: Peter Gonzales. ANESTHESIA PROVIDER: Viviana Taylor ESTIMATED BLOOD LOSS: Minimal. FINDINGS: Possibly very early appendicitis. There were multiple filmy adhesions around the cecum and terminal ileum, making the appendix difficult to find, but eventually I did locate it. The remainder of the abdomen had dense adhesions and I was not really able to do a complete visual exploratory because of this. Nevertheless, the appendix was removed. COMPLICATIONS: None. CONDITION: Stable upon transport to recovery. HISTORY: Patient is a 74-year-old white female presenting with a 24-hour history of abdominal pain localizing to the right lower quadrant. Examination revealed point tenderness in the right lower quadrant over McBurney's point and a Rovsing sign that was positive. She did have a fever of 100.[address] scan indicated a thickening at the base of the appendix at the cecum and an early appendicitis was considered. DESCRIPTION OF PROCEDURE: Patient was taken to the operating room and under the above-mentioned anesthetic, prepped and draped in the usual sterile manner. A Veress needle was used to gain entrance into the abdominal cavity and create a pneumoperitoneum. This was placed in the upper left quadrant. Subsequently, a 5 mm port was placed at this site, and visual inspection allowed me to enter the abdominal cavity with the other ports under direct vision. No injury occurred at port site entry. Subsequently, the mobilization process of the filmy adhesions in the pelvis and right gutter was commenced and this was fairly painstaking and tedious. Eventually, however, the cecum was identified and the appendix likewise. The appendix was then mobilized down to its base. The mesoappendix was likewise identified and a window between the mesoappendix and the appendix was created and using the vascular Endo-MINI the appendix was amputated at its base with the cecum and using another load the mesoappendix was divided and ligated. The appendix was then placed in the abdomen in an EndoCatch bag and brought out through the umbilical port in the usual manner. The right gutter and appendiceal stump was copiously irrigated with sterile saline solution and after as much of the irrigant as possible was evacuated and finding no evidence for bleeding or leak. After a correct sponge and needle count was reported patient was prepared for closure. The EndoStitch was used to approximate the fascial edges followed by 2 additional [id number] sutures of 0 Vicryl. The pneumoperitoneum was then completely released and the skin margins all joined with running undyed subcuticular 4-0 Monocryl, Dermabond over that and patient transported to recovery in stable condition. TD: 04/14/2019 16:26 MTDD
[2019-04-14] MEDS ORDERED: SODIUM CHLORIDE 0.9% 500 ML ONE (21:17)
[2019-04-14] MEDS ORDERED: SODIUM CHLORIDE 0.9% 500 ML IV ONE (21:49)
[2019-04-14] MEDS ORDERED: ACETAMINOPHEN 500 MG TABLET PO PRN (22:28)
[2019-04-15] MEDS: HYDROcod/ACETAM 5/325 MG TABLET PO PRN ×2 (03:35→20:16)
[2019-04-15] MEDS ORDERED: SODIUM CHLORIDE FLUSH 0.9% 10 ML SYRINGE IVP PRN (08:30)
[2019-04-15] MEDS ORDERED: SODIUM CHLORIDE 0.9% 500 ML IV ONE (08:42)
[2019-04-15] MEDS ORDERED: SODIUM CHLORIDE 0.9% 1,000 ML IV SCH (09:00)
--- NOTE | 2019-04-15 09:04 | HISTORY & PHYSICAL EXAMINATION ---
Chief Complaint - Chief Complaint Chief Complaint: Fever History of Present Illness - Admitted From Admitted From:: Home - History Obtained From Records Reviewed: Yes History obtained from: Patient, EMR, General Surgery - History of Present Illness HPI Comment/Other: This is a 74-year-old female with a past medical history significant for recurrent diverticulitis and severe diverticulosis who presented to the hospital yesterday complaining of a fever and right lower quadrant abdominal pain. She underwent a CT scan yesterday which showed inflammation of the cecum. The appendix could not be visualized. Given her fever, elevated white count and poor oral intake, there was concern for appendicitis. She was taken to the OR yesterday where her appendix was removed. Grossly, the appendix appeared relatively unremarkable. Today she continued to spike a fever and she does not feel well. She complains of predominantly right lower quadrant abdominal pain after her surgery. She denies left lower quadrant pain. Continues to report feeling febrile but denies chills. She denies shortness of breath, chest pain, cough. She reports no dysuria, urgency, frequency. She did have 2 urinary tract infections over the past few months for which she completed a course of antibiotics. She is concerned she might have diverticulitis given her history.' We did discuss goals of care and she would like to be a DNR. History - Past Medical History Cardiovascular: reports: None Respiratory: reports: None Endocrine/Autoimmune: reports: None GI: reports: GERD, Colon polyps, Diverticulitis, Other : reports: Chronic bladder infection HEENT: reports: None Psych: reports: None Musculoskeletal: reports: Scoliosis, Chronic back pain, Other (hx bulbar polio) Derm: reports: None MRSA Hx?: No - Past Surgical History General: reports: Bowel surgery /POT FEEDER: reports: Hysterectomy - Family & Social History Family History Comment/Other: She reports her mother had a mitral valve disorder. She reports no other family history. Living arrangement: At home Living Situation: With spouse/s.o. Social History Notes: She has lives on [facility] for less than 1 year. She previously lives in [place]. She retired about 20 years ago. 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 She reports no alcohol or smoking. - Substance History Use: Uses substance without health or social issues: NONE Meds/Allgy - Home Medications Home Medications: Ambulatory Orders Medication Instructions Recorded Confirmed Cephalexin Suspension [Keflex] 500 mg PO QID #400 ml 04/09/19 04/14/19 Aspirin Chewable [[facility] Prince 81 mg PO DAILY 04/14/19 04/14/19 Aspirin] Calcium Carb/Vitamin D3/Vit K1 1 cap PO DAILY 04/14/19 04/14/19 [Viactiv 650 mg-12.5 Mcg Chew] Meloxicam [Qmiiz Odt] 7.5 mg PO DAILY 04/14/19 04/14/19 [place]-3/Dha/Epa/Fish Oil [Fish Oil 1 cap PO DAILY 04/14/19 04/14/19 1,000 mg Softgel] Omeprazole 40 mg PO DAILY 04/14/19 04/14/19 - Allergies Allergies/Adverse Reactions: Allergies Allergy/AdvReac Type Severity Reaction Status Date / Time epinephrine Allergy Unknown Verified 04/14/19 00:50 erythromycin base Allergy Rash Verified 04/14/19 09:15 indomethacin Allergy Unknown Verified 04/14/19 00:50 Latex, Natural Rubber Allergy Rash Verified 04/14/19 09:15 Sulfa (Sulfonamide Allergy Dizziness Verified 04/14/19 09:15 Antibiotics) Review of Systems - Constitutional Constitutional: reports: Fatigue, Fever. denies: Chills, Weakness - Cardiovascular Cariovascular: denies: Chest pain, Edema, Exertional dyspnea, Decr. exercise tolerance - Respiratory Respiratory: denies: Cough, SOB at rest, SOB with exertion - Gastrointestinal Gastrointestinal: reports: Abdominal pain. denies: Nausea, Vomiting - Genitourinary Genitourinary: denies: Dysuria, Frequency, Urgency - Musculoskeletal Musculoskeletal: denies: Muscle weakness - Integumentary Integumentary: denies: Rash - Neurological Neurological: reports: General weakness. denies: Focal weakness - All Other Systems All Other Systems: reports: Reviewed and negative Prior Level of Functionality: She is independent with ADLs. Exam - Vital Signs Reviewed Vital Signs: Yes Vital Signs: Vital Signs x48h Temp Pulse Resp BP Pulse Ox 04/15/19 07:01 37.9 C H 95 20 85/45 L 93 04/15/19 03:29 37.9 C H 94 20 95/64 96 - Physical Exam General Appearance: positive: No acute distress, Alert Eyes Bilateral: positive: Normal inspection ENT: positive: ENT inspection nml Neck: positive: Nml inspection Respiratory: positive: No respiratory distress. negative: Wheezes, Rales, Rhonchi Cardiovascular: positive: No murmur, Tachycardia. negative: Bradycardia, Systolic murmur, Diastolic murmur Abdomen: positive: No distention, Tenderness (Right lower quadrant.). negative: Guarding, Rebound Skin: positive: No rash, Warm, Dry Extremities: positive: No pedal edema Neurologic/Psychiatric: positive: Oriented x3, Other (No focal motor deficits.). negative: Disoriented to person, Disoriented to place, Disoriented to time Sepsis Event Note (H) - Evaluation Current Stage of Sepsis: Sepsis Possible source of Sepsis: positive: GI tract/intra-abdominal - Sepsis Criteria Sepsis Criteria: Recorded Temperature greater than 38.3C or Less than 36C, Recorded Heart Rate greater than 90 bpm, SBP less than 90 mmHg Conclusion/Plan - Problem List (1) Sepsis Conclusion/Plan: Suspect her sepsis is secondary to diverticulitis given the CT scan findings. She is febrile, hypotensive, tachycardic. There is no other obvious source of infection. Her urinalysis is unremarkable and her gallbladder appears normal on imaging. Her x-ray is also clear. We will recheck her labs today including CBC and lactic acid. We will also check a troponin and EKG to rule out a cardiac etiology of her hypertension. We will continue IV fluids. We will continue her on Zosyn IV at this time. (2) Diverticulitis Conclusion/Plan: CT of the abdomen and pelvis mentions chronic diverticulitis. There is also inflammation of the cecum. Given her history and her current presentation, suspect this may be the cause of her sepsis given there is no other obvious source. We will have her on a clear liquid diet at this time. We will continue Zosyn IV. (3) Status post appendectomy Conclusion/Plan: She is status post appendectomy after there was concern for appendicitis. Operative report reports that the appendix appeared relatively unremarkable. This could have been early appendicitis. - Lab Results Lab results reviewed: Yes Fish Bones: 04/15/19 09:18 04/15/19 09:18 - Diagnostic Imaging Results Diagnostic Imaging Results: positive: Final report reviewed - EKG Results EKG Interpreted Independently: Yes EKG Findings: Anus rhythm with no obvious ischemic changes. There are nonspecific T wave changes. It is relatively unchanged compared to her prior EKG Core Measures - Anticipated LOS I expect patient to be DC'd or transferred within 96 hours.: Yes - Issues Hospital Issues and Management Plan: Sepsis secondary to suspected diverticulitis. Will require IV antibiotics. - DVT/VTE - Prophylaxis VTE/DVT Device ordered at admit?: Yes VTE/DVT Prophylaxis med ordered at admit?: Yes
[2019-04-15] MEDS ORDERED: MORPHINE 2 MG/ML CARPUJECT IVP PRN (09:05)
[2019-04-15] MEDS: ASPIRIN CHEW 81 MG TABLET PO SCH (09:10)
[2019-04-15] MEDS: LACTATED RINGERS 1,000 ML IV SCH ×2 (09:14→20:24)
[2019-04-15 09:28] LABS: BASOPHILS % (AUTO) 0.4 %; EOSINOPHILS % (AUTO) 0.2 %; HGB - HEMOGLOBIN 8.3 g/dL (12.0-16.0); LYMPHOCYTES # (AUTO) 0.4 10^3/uL (1.5-3.5); LYMPHOCYTES % (AUTO) 5.2 %; MEAN CORPUSCULAR HEMOGLOBIN 30.2 pg (27.0-31.0); MEAN CORPUSCULAR HGB CONC 30.4 g/dL (32.0-36.0); MEAN CORPUSCULAR VOLUME 99.3 fL (81.0-99.0); MEAN PLATELET VOLUME 9.8 fL (7.9-10.8); MONOCYTES # (AUTO) 0.8 10^3/uL (0.0-1.0); MONOCYTES % (AUTO) 9.5 %; NEUTROPHILS # (AUTO) 7.1 10^3/uL (1.5-6.6); NEUTROPHILS % (AUTO) 84.2 %; PLT - PLATELET COUNT 159 10^3/uL (130-450); RED BLOOD COUNT 2.75 10^6/uL (4.20-5.40); RED CELL DISTRIBUTION WIDTH 15.6 % (12.0-15.0); WHITE BLOOD COUNT 8.4 x10^3/uL (4.8-10.8)
[2019-04-15 09:36] LABS: ALBUMIN/GLOBULIN RATIO 1.3 (1.0-2.2); BILIRUBIN,TOTAL 1.8 mg/dL (0.2-1.0); CALCIUM 7.3 mg/dL (8.5-10.3); CREATININE 0.5 mg/dL (0.4-1.0); TOTAL PROTEIN 5.3 g/dL (6.7-8.2)
[2019-04-15] MEDS: PIPERACILLIN/TAZOBACTAM 3.375 GM in SODIUM CHLORIDE 0.9% MINIBAG 100 ML IV SCH ×2 (10:13→14:54)
[2019-04-15] MEDS ORDERED: POTASSIUM CHLORIDE 20 MEQ TABLET PO ONE (10:53)
--- NOTE | 2019-04-15 11:22 | XRAY Report ---
Reason: POD #1 fever Procedure Date: 04/15/2019 Accession Number: [id number] / [id number] Procedure: XR - Chest 1 View X-Ray CPT Code: 63549 Final Report FULL RESULT: EXAM: CHEST RADIOGRAPHY EXAM DATE: 04/15/2019 09:10 AM. CLINICAL HISTORY: POD 1 fever. COMPARISON: ABDOMEN/PELVIS W/ 04/14/2019 1:59 AM. TECHNIQUE: Upright AP view. The patient is moderately rotated toward the left. FINDINGS: Lungs/Pleura: No focal opacities evident. No pleural effusion. No pneumothorax. Mediastinum: Within exam limitations, the cardiomediastinal contour is normal. Other: None. IMPRESSION: Negative chest. Lungs are clear. RADIA
[2019-04-15] MEDS: ENOXAPARIN 40 MG/0.4 ML SYRINGE SUBQ SCH (12:03)
[2019-04-15] MEDS: SODIUM CHLORIDE FLUSH 0.9% 10 ML SYRINGE IVP SCH ×2 (14:57→20:20)
[2019-04-15] MEDS: ACETAMINOPHEN 325 MG TABLET PO PRN (20:17)
[2019-04-15] MEDS: LACTOBACILLUS RHAMNOSUS GG CAPSULE PO SCH (20:19)
[2019-04-15] MEDS: VANCOMYCIN 125 MG CAPSULE PO SCH (21:16)
[2019-04-16] MEDS: SODIUM CHLORIDE FLUSH 0.9% 10 ML SYRINGE IVP SCH ×3 (00:12→16:18)
[2019-04-16 04:52] LABS: BASOPHILS % (AUTO) 0.3 %; EOSINOPHILS % (AUTO) 0.1 %; HGB - HEMOGLOBIN 7.9 g/dL (12.0-16.0); LYMPHOCYTES # (AUTO) 0.5 10^3/uL (1.5-3.5); LYMPHOCYTES % (AUTO) 5.8 %; MEAN CORPUSCULAR HEMOGLOBIN 30.5 pg (27.0-31.0); MEAN CORPUSCULAR VOLUME 98.5 fL (81.0-99.0); MEAN PLATELET VOLUME 10.5 fL (7.9-10.8); MONOCYTES # (AUTO) 0.8 10^3/uL (0.0-1.0); MONOCYTES % (AUTO) 9.5 %; NEUTROPHILS # (AUTO) 7.3 10^3/uL (1.5-6.6); NEUTROPHILS % (AUTO) 83.4 %; PLT - PLATELET COUNT 157 10^3/uL (130-450); RED BLOOD COUNT 2.59 10^6/uL (4.20-5.40); RED CELL DISTRIBUTION WIDTH 15.2 % (12.0-15.0); WHITE BLOOD COUNT 8.7 x10^3/uL (4.8-10.8)
[2019-04-16 05:03] LABS: ALBUMIN 2.6 g/dL (3.2-5.5); ALBUMIN/GLOBULIN RATIO 1.1 (1.0-2.2); BILIRUBIN,TOTAL 2.4 mg/dL (0.2-1.0); CALCIUM 7.5 mg/dL (8.5-10.3); CREATININE 0.4 mg/dL (0.4-1.0); TOTAL PROTEIN 4.9 g/dL (6.7-8.2)
[2019-04-16] MEDS: LACTATED RINGERS 1,000 ML IV SCH ×2 (06:21→14:58)
[2019-04-16] MEDS: PANTOPRAZOLE 40 MG VIAL IVP SCH (06:30)
[2019-04-16] MEDS: VANCOMYCIN 125 MG CAPSULE PO SCH ×4 (08:34→21:55)
[2019-04-16] MEDS: ASPIRIN CHEW 81 MG TABLET PO SCH (08:37)
[2019-04-16] MEDS: LACTOBACILLUS RHAMNOSUS GG CAPSULE PO SCH (08:37)
[2019-04-16] MEDS: ENOXAPARIN 40 MG/0.4 ML SYRINGE SUBQ SCH (08:43)
--- NOTE | 2019-04-16 10:54 | PROVIDER PROGRESS NOTE ---
Subjective - Prog Note Date Prog Note Date: 04/16/19 - Subjective Subjective: Reports feeling okay for the most part. She has been having quite a lot of diarrhea. She has been going nearly every 40 minutes overnight. She reports it is foul-smelling and a large amount. She reports diffuse abdominal cramping. Reports feeling febrile. She has been tolerating a diet. Reports no chest pain or dyspnea. Current Medications - Current Medications Current Medications: Active Medications Acetaminophen (Tylenol) 650 mg PO Q4HR PRN PRN Reason: Pain 1 to 4 Last Admin: 04/15/19 20:17 Dose: 325 mg Hydrocodone Bitart/Acetaminophen ([place] 5/325) 1 tab PO Q4HR PRN PRN Reason: PAIN Last Admin: 04/15/19 20:16 Dose: 1 tab Aspirin ([place] Aspirin) 81 mg PO DAILY [facility] Last Admin: 04/16/19 08:37 Dose: 81 mg Enoxaparin Sodium (Lovenox) 40 mg SUBQ DAILY [facility] Last Admin: 04/16/19 08:43 Dose: 40 mg Lactated Ringer's (Lr) 1,000 mls @ 100 mls/hr IV .Q10H [facility] Last Admin: 04/16/19 06:21 Dose: 100 mls/hr Lactobacillus Rhamnosus (Culturelle) 1 cap PO DAILY [facility] Last Admin: 04/16/19 08:37 Dose: 1 cap Morphine Sulfate (Morphine (Carpuject)) 2 mg IVP Q2HR PRN PRN Reason: PAIN Ondansetron HCl (Zofran Inj) 4 mg IVP Q6HR PRN PRN Reason: Nausea / Vomiting Pantoprazole Sodium (Protonix) 40 mg IVP QDAC [facility] Last Admin: 04/16/19 06:30 Dose: 40 mg Sodium Chloride (Normal Saline Flush 0.9%) 10 ml IVP PRN PRN PRN Reason: NEEDED PER PROVIDER ORDERS Last Admin: 04/16/19 06:31 Dose: 10 ml Sodium Chloride (Normal Saline Flush 0.9%) 10 ml IVP 0100,0900,1700 [facility] Last Admin: 04/16/19 00:12 Dose: 10 ml Vancomycin HCl (Vancocin) 125 mg PO QID [facility] Last Admin: 04/16/19 08:34 Dose: 125 mg Aspirin Chewable [[place] Aspirin] 81 mg PO DAILY 04/14/19 Calcium Carb/Vitamin D3/Vit K1 [Viactiv 650 mg-12.5 Mcg Chew] 1 cap PO DAILY 04/14/19 Meloxicam [Qmiiz Odt] 7.5 mg PO DAILY 04/14/19 [place]-3/Dha/Epa/Fish Oil [Fish Oil 1,000 mg Softgel] 1 cap PO DAILY 04/14/19 Omeprazole 40 mg PO DAILY 04/14/19 Objective - Vital Signs/Intake & Output Reviewed Vital Signs: Yes Vital Signs: Vital Signs x48h Temp Pulse Resp BP Pulse Ox 04/16/19 09:00 37.5 C 105 H 23 97/44 L 94 04/16/19 04:41 37.5 C 108 H 16 99/58 L 93 Intake & Output: Intake & Output 04/13/19 04/14/19 04/15/19 04/16/19 23:59 23:59 23:59 23:59 Intake Total 4300 3411.000 1415 Output Total 105 500 700 Balance 4195 2911.000 715 - Objective General Appearance: positive: No acute distress, Alert Eyes Bilateral: positive: Normal inspection ENT: positive: ENT inspection nml Neck: positive: Nml inspection Respiratory: positive: No respiratory distress. negative: Wheezes, Rales, Rhonchi Cardiovascular: positive: No murmur, Tachycardia. negative: Bradycardia Abdomen: positive: No distention, Tenderness (Diffuse abdominal tenderness that is most pronounced in the right lower quadrant.). negative: Guarding, Rebound Skin: positive: No rash, Warm, Dry Extremities: positive: No pedal edema Neurologic/Psychiatric: positive: Oriented x3, Motor nml. negative: Disoriented to person, Disoriented to place, Disoriented to time - Lab Results Fish Bones: 04/16/19 04:25 04/16/19 04:25 Other Labs: Lab Results x24hrs 04/16/19 04/16/19 04/15/19 Range/Units 04:25 04:25 18:09 WBC 8.7 (4.8-10.8) x10^3/uL RBC 2.59 L (4.20-5.40) 10^6/uL Hgb 7.9 L (12.0-16.0) g/dL Hct 25.5 L (37.0-47.0) % MCV 98.5 (81.0-99.0) fL MCH 30.5 (27.0-31.0) pg MCHC 31.0 L (32.0-36.0) g/dL RDW 15.2 H (12.0-15.0) % Plt Count 157 (130-450) 10^3/uL MPV 10.5 (7.9-10.8) fL Neut # (Auto) 7.3 H (1.5-6.6) 10^3/uL Lymph # (Auto) 0.5 L (1.5-3.5) 10^3/uL [place] # (Auto) 0.8 (0.0-1.0) 10^3/uL Eos # (Auto) 0.0 (0.0-0.7) 10^3/uL Baso # (Auto) 0.0 (0.0-0.1) 10^3/uL Absolute Nucleated RBC 0.00 x10^3/uL Nucleated RBC % 0.0 /100WBC Sodium 140 (135-145) mmol/L Potassium 3.4 L (3.5-5.0) mmol/L Chloride 112 H (101-111) mmol/L Carbon Dioxide 23 (21-32) mmol/L Anion Gap 5.0 L (6-13) BUN 16 (6-20) mg/dL Creatinine 0.4 (0.4-1.0) mg/dL Estimated GFR (MDRD) 156 (>89) Glucose 114 H (70-100) mg/dL Calcium 7.5 L (8.5-10.3) mg/dL Total Bilirubin 2.4 H (0.2-1.0) mg/dL AST 27 (10-42) IU/L ALT 21 (10-60) IU/L Alkaline Phosphatase 46 (42-121) IU/L Total Protein 4.9 L (6.7-8.2) g/dL Albumin 2.6 L (3.2-5.5) g/dL Globulin 2.3 (2.1-4.2) g/dL Albumin/Globulin Ratio 1.1 (1.0-2.2) Stl C. diff Tox B Gene POSITIVE A* (NEGATIVE) ABX Reporting Has patient been on IV antibiotics over the past 48 hours?: Yes Sepsis Event Note (H) - Evaluation Current Stage of Sepsis: Sepsis Possible source of Sepsis: positive: GI tract/intra-abdominal - Sepsis Criteria Sepsis Criteria: Recorded Temperature greater than 38.3C or Less than 36C, Recorded Heart Rate greater than 90 bpm, SBP less than 90 mmHg Assessment/Plan - Problem List (1) Sepsis Impression: The sepsis appears to be secondary to her C. difficile infection. She remains tachycardic, febrile, borderline hypotensive. She was started on oral vancomycin yesterday. We will continue with IV hydration. (2) C. difficile diarrhea Impression: This is likely because of her sepsis. This is her first episode of C. difficile. Risk factors include recent antibiotic use on an outpatient basis for urinary tract infection. Continues to have a large amount of diarrhea. We will continue her on oral vancomycin for which she will need for 10 days. Continue IV hydration. Clear liquid diet as tolerated. (3) Diverticulitis Impression: Is evident on the CT of the abdomen and pelvis but appears chronic on imaging. Although this was initially believed to be the cause of her sepsis, given she now has C. difficile, this is less likely to be an acute issue. (4) Status post appendectomy Impression: She is status post appendectomy after there was concern for appendicitis initially given her presentation. The appendix appeared relatively unremarkable. There was concern it might have been early appendicitis.
--- NOTE | 2019-04-16 11:26 | PROVIDER PROGRESS NOTE ---
Subjective - General Admit Date: 04/15/19 Procedure Date: 04/14/19 Post Op Days: 2 Procedure Performed: Lap appy - Review of Systems Wound/Incisions: positive: Healing well General: positive: Other (Feeling better after being started on Vancomycin Re: + C. diff) Pulmonary: positive: No symptoms Gastrointestinal: positive: Other (Some cramping and diarrhea) Genitourinary: positive: No symptoms All Other Systems: positive: Reviewed and negative Objective - Patient Data Reviewed Vital Signs: Yes Vital Signs: Vital Signs x48h Temp Pulse Resp BP Pulse Ox 04/16/19 09:00 37.5 C 105 H 23 97/44 L 94 04/16/19 04:41 37.5 C 108 H 16 99/58 L 93 Weight: Weight 04/14/19 04/15/19 04/16/19 23:59 23:59 23:59 Weight (kg) 56.5 kg Intake & Output: Intake and Output Totals x24h 04/14/19 04/15/19 04/16/19 23:59 23:59 23:59 Intake Total 4300 3411.000 1415 Output Total 105 500 700 Balance 4195 2911.000 715 - Lab Results Lab Results: 04/16/19 04:25 04/16/19 04:25 Other Lab Results: Lab Results x24hrs 04/16/19 04/16/19 04/15/19 Range/Units 04:25 04:25 18:09 WBC 8.7 (4.8-10.8) x10^3/uL RBC 2.59 L (4.20-5.40) 10^6/uL Hgb 7.9 L (12.0-16.0) g/dL Hct 25.5 L (37.0-47.0) % MCV 98.5 (81.0-99.0) fL MCH 30.5 (27.0-31.0) pg MCHC 31.0 L (32.0-36.0) g/dL RDW 15.2 H (12.0-15.0) % Plt Count 157 (130-450) 10^3/uL MPV 10.5 (7.9-10.8) fL Neut # (Auto) 7.3 H (1.5-6.6) 10^3/uL Lymph # (Auto) 0.5 L (1.5-3.5) 10^3/uL [place] # (Auto) 0.8 (0.0-1.0) 10^3/uL Eos # (Auto) 0.0 (0.0-0.7) 10^3/uL Baso # (Auto) 0.0 (0.0-0.1) 10^3/uL Absolute Nucleated RBC 0.00 x10^3/uL Nucleated RBC % 0.0 /100WBC Sodium 140 (135-145) mmol/L Potassium 3.4 L (3.5-5.0) mmol/L Chloride 112 H (101-111) mmol/L Carbon Dioxide 23 (21-32) mmol/L Anion Gap 5.0 L (6-13) BUN 16 (6-20) mg/dL Creatinine 0.4 (0.4-1.0) mg/dL Estimated GFR (MDRD) 156 (>89) Glucose 114 H (70-100) mg/dL Calcium 7.5 L (8.5-10.3) mg/dL Total Bilirubin 2.4 H (0.2-1.0) mg/dL AST 27 (10-42) IU/L ALT 21 (10-60) IU/L Alkaline Phosphatase 46 (42-121) IU/L Total Protein 4.9 L (6.7-8.2) g/dL Albumin 2.6 L (3.2-5.5) g/dL Globulin 2.3 (2.1-4.2) g/dL Albumin/Globulin Ratio 1.1 (1.0-2.2) Stl C. diff Tox B Gene POSITIVE A* (NEGATIVE) - Current Medications Current Medications: Current Medications Generic Name Dose Route Start Last Admin Trade Name Freq PRN Reason Stop Dose Admin Acetaminophen 650 mg 04/15/19 08:30 04/15/19 20:17 Tylenol PO 325 mg Q4HR PRN Administration Pain 1 to 4 Hydrocodone Bitart/Acetaminophen 1 tab 04/14/19 16:52 04/15/19 20:16 [place] 5/325 PO 1 tab Q4HR PRN Administration PAIN Aspirin 81 mg 04/15/19 09:00 04/16/19 08:37 [facility] [place] Aspirin PO 81 mg DAILY JOSÉ MIGUEL Administration Enoxaparin Sodium 40 mg 04/15/19 12:00 04/16/19 08:43 Lovenox SUBQ 40 mg DAILY JOSÉ MIGUEL Administration Lactated Ringer's 1,000 mls @ 100 mls/hr 04/14/19 17:00 04/16/19 06:21 Lr IV 100 mls/hr .Q10H JOSÉ MIGUEL Administration Lactobacillus Rhamnosus 1 cap 04/15/19 17:00 04/16/19 08:37 Culturelle PO 1 cap DAILY JOSÉ MIGUEL Administration Pantoprazole Sodium 40 mg 04/16/19 07:00 04/16/19 06:30 Protonix IVP 40 mg QDAC JOSÉ MIGUEL Administration Sodium Chloride 10 ml 04/15/19 08:30 04/16/19 06:31 Normal Saline Flush 0.9% IVP 10 ml PRN PRN Administration NEEDED PER PROVIDER ORDERS Sodium Chloride 10 ml 04/15/19 09:00 04/16/19 00:12 Normal Saline Flush 0.9% IVP 10 ml 0100,0900,1700 JOSÉ MIGUEL Administration Vancomycin HCl 125 mg 04/15/19 21:00 04/16/19 08:34 Vancocin PO 125 mg QID JOSÉ MIGUEL Administration - Physical Exam Wound/Incisions: positive: Healing well General Appearance: positive: No acute distress Respiratory: positive: No respiratory distress Abdomen: positive: Other (Mild generalized tenderness) ABX Reporting Has patient been on IV antibiotics over the past 48 hours?: Yes Impression/Plan - Problem List Problem List: + C. diff Anemia S/P lap appy Cont Vanco as per hospitalist Anemia to be addressed by Hospitalist per protocol
[2019-04-16] MEDS: HYDROcod/ACETAM 5/325 MG TABLET PO PRN ×2 (16:18→21:54)
[2019-04-16] MEDS: ACETAMINOPHEN 325 MG TABLET PO PRN (16:18)
[2019-04-17] MEDS: SODIUM CHLORIDE FLUSH 0.9% 10 ML SYRINGE IVP SCH ×2 (00:31→08:13)
[2019-04-17] MEDS: LACTATED RINGERS 1,000 ML IV SCH ×2 (01:26→08:13)
[2019-04-17 05:24] LABS: BASOPHILS # (AUTO) 0.1 10^3/uL (0.0-0.1); BASOPHILS % (AUTO) 0.8 %; EOSINOPHILS # (AUTO) 0.1 10^3/uL (0.0-0.7); EOSINOPHILS % (AUTO) 1.5 %; LYMPHOCYTES # (AUTO) 0.8 10^3/uL (1.5-3.5); LYMPHOCYTES % (AUTO) 8.8 %; MEAN CORPUSCULAR HEMOGLOBIN 31.1 pg (27.0-31.0); MEAN CORPUSCULAR HGB CONC 31.5 g/dL (32.0-36.0); MEAN CORPUSCULAR VOLUME 98.8 fL (81.0-99.0); MEAN PLATELET VOLUME 10.4 fL (7.9-10.8); MONOCYTES # (AUTO) 0.9 10^3/uL (0.0-1.0); NEUTROPHILS # (AUTO) 7.2 10^3/uL (1.5-6.6); NEUTROPHILS % (AUTO) 75.8 %; PLT - PLATELET COUNT 159 10^3/uL (130-450); RED BLOOD COUNT 2.57 10^6/uL (4.20-5.40); RED CELL DISTRIBUTION WIDTH 14.9 % (12.0-15.0); WHITE BLOOD COUNT 9.5 x10^3/uL (4.8-10.8)
[2019-04-17 05:46] LABS: CALCIUM 7.3 mg/dL (8.5-10.3); CREATININE 0.3 mg/dL (0.4-1.0); MAGNESIUM 1.6 mg/dL (1.7-2.8)
[2019-04-17 06:01] LABS: FERRITIN 517.5 ng/mL (11.0-306.8)
[2019-04-17] MEDS: PANTOPRAZOLE 40 MG VIAL IVP SCH (07:32)
[2019-04-17] MEDS ORDERED: PANTOPRAZOLE 40 MG TABLET PO SCH (08:00)
[2019-04-17] MEDS ORDERED: POTASSIUM CHLORIDE 20 MEQ/15 ML UDC PO SCH (08:00)
[2019-04-17] MEDS: ENOXAPARIN 40 MG/0.4 ML SYRINGE SUBQ SCH (08:33)
[2019-04-17] MEDS: VANCOMYCIN 125 MG CAPSULE PO SCH ×2 (08:34→14:34)
[2019-04-17] MEDS: LACTOBACILLUS RHAMNOSUS GG CAPSULE PO SCH (08:34)
[2019-04-17] MEDS: ASPIRIN CHEW 81 MG TABLET PO SCH (08:34)
--- NOTE | 2019-04-17 08:57 | Discharge Plan ---
Discharge Plan Problem Reviewed?: Yes Disposition: Home, Self Care Condition: Good Prescriptions: Vancomycin [Vancocin] 125 mg PO QID 8 Days #24 capsule Diet: Regular Activity Restrictions: Activity as Tolerated Shower Restrictions: No Driving Restrictions: No Instruction Topics: Vancomycin capsules, Clostridium Difficile Toxin Stool, Appendectomy, Appendectomy Laparoscopic Dc, Clostridium Difficile Infec Health Concerns: You were admitted to the hospital because of abdominal pain and fever. The concern was that you had appendicitis and you were taken to the OR. It appears that the likely cause of your fever and pain was a C difficile infection. This likely occurred because of recent antibiotic use. This infection can cause abdominal pain and diarrhea. You were started on oral vancomycin and your diarrhea has improved. Please continue to take the medication as prescribed. Please return to the emergency department if you develop worsening nausea, vomiting, abdominal pain, fever. Plan of Treatment: Please take vancomycin 125 mg four times a day for 8 more days. Care Goals: It is recommended you follow-up with your primary care physician within 1 week. Please return to the emergency department if you develop worsening abdominal pain, nausea, vomiting, fever. Assessment: The patient expressed understanding of the treatment and plan. No Smoking: If you smoke, Please STOP! Call for help. Follow-up with: Kimberly Mg MD [Primary Care Provider] - Alan Dunlap DO [Provider Admit Priv/Credential] - 2 Weeks
--- NOTE | 2019-04-17 10:08 | PROVIDER PROGRESS NOTE ---
Subjective - General Admit Date: 04/15/19 Procedure Date: 04/14/19 Post Op Days: 3 Procedure Performed: Lap appy - Review of Systems Wound/Incisions: positive: Healing well General: positive: Other (Feeling better after being started on Vancomycin Re: + C. diff) Pulmonary: positive: No symptoms Gastrointestinal: positive: Other (Some cramping and diarrhea) Genitourinary: positive: No symptoms All Other Systems: positive: Reviewed and negative Objective - Patient Data Reviewed Vital Signs: Yes Vital Signs: Vital Signs x48h Temp Pulse Resp BP Pulse Ox 04/17/19 08:00 36.5 C 98 18 118/63 97 04/17/19 03:12 36.8 C 90 16 100/47 L 96 Intake & Output: Intake and Output Totals x24h 04/15/19 04/16/19 04/17/19 23:59 23:59 23:59 Intake Total 3411.000 2626.667 1785 Output Total 500 1000 Balance 2911.000 5730.622 0839 - Lab Results Lab Results: 04/17/19 04:50 04/17/19 04:50 Other Lab Results: Lab Results x24hrs 04/17/19 04/17/19 04/17/19 Range/Units 04:50 04:50 04:50 WBC 9.5 (4.8-10.8) x10^3/uL RBC 2.57 L (4.20-5.40) 10^6/uL Hgb 8.0 L (12.0-16.0) g/dL Hct 25.4 L (37.0-47.0) % MCV 98.8 (81.0-99.0) fL MCH 31.1 H (27.0-31.0) pg MCHC 31.5 L (32.0-36.0) g/dL RDW 14.9 (12.0-15.0) % Plt Count 159 (130-450) 10^3/uL MPV 10.4 (7.9-10.8) fL Neut # (Auto) 7.2 H (1.5-6.6) 10^3/uL Lymph # (Auto) 0.8 L (1.5-3.5) 10^3/uL [place] # (Auto) 0.9 (0.0-1.0) 10^3/uL Eos # (Auto) 0.1 (0.0-0.7) 10^3/uL Baso # (Auto) 0.1 (0.0-0.1) 10^3/uL Absolute Nucleated RBC 0.00 x10^3/uL Nucleated RBC % 0.0 /100WBC Sodium 138 (135-145) mmol/L Potassium 2.7 L (3.5-5.0) mmol/L Chloride 108 (101-111) mmol/L Carbon Dioxide 23 (21-32) mmol/L Anion Gap 7.0 (6-13) BUN 13 (6-20) mg/dL Creatinine 0.3 L (0.4-1.0) mg/dL Estimated GFR (MDRD) 218 (>89) Glucose 101 H (70-100) mg/dL Calcium 7.3 L (8.5-10.3) mg/dL Magnesium 1.6 L (1.7-2.8) mg/dL Iron 42 (28-170) ug/dL TIBC 130 L (250-450) ug/dL % Saturation 32 (20-50) % Transferrin 93 L (192-382) mg/dL Ferritin 517.5 H (11.0-306.8) ng/mL Vitamin B12 2913 H (180-914) pg/mL - Current Medications Current Medications: Current Medications Generic Name Dose Route Start Last Admin Trade Name Freq PRN Reason Stop Dose Admin Acetaminophen 650 mg 04/15/19 08:30 04/16/19 16:18 Tylenol PO 650 mg Q4HR PRN Administration Pain 1 to 4 Hydrocodone Bitart/Acetaminophen 1 tab 04/14/19 16:52 04/16/19 21:54 [place] 5/325 PO 1 tab Q4HR PRN Administration PAIN Aspirin 81 mg 04/15/19 09:00 04/17/19 08:34 [facility] [place] Aspirin PO 81 mg DAILY JOSÉ MIGUEL Administration Enoxaparin Sodium 40 mg 04/15/19 12:00 04/17/19 08:33 Lovenox SUBQ 40 mg DAILY JOSÉ MIGUEL Administration Lactobacillus Rhamnosus 1 cap 04/15/19 17:00 04/17/19 08:34 Culturelle PO 1 cap DAILY JOSÉ MIGUEL Administration Pantoprazole Sodium 40 mg 04/17/19 08:00 04/17/19 08:33 Protonix PO 40 mg QDAC JOSÉ MIGUEL Administration Sodium Chloride 10 ml 04/15/19 08:30 04/16/19 06:31 Normal Saline Flush 0.9% IVP 10 ml PRN PRN Administration NEEDED PER PROVIDER ORDERS Sodium Chloride 10 ml 04/15/19 09:00 04/17/19 08:13 Normal Saline Flush 0.9% IVP Not Given 0100,0900,1700 JOSÉ MIGUEL Vancomycin HCl 125 mg 04/15/19 21:00 04/17/19 08:34 Vancocin PO 125 mg QID JOSÉ MIGUEL Administration - Physical Exam Wound/Incisions: positive: Healing well General Appearance: positive: No acute distress Abdomen: positive: Tenderness (Still some overall tenderness) ABX Reporting Has patient been on IV antibiotics over the past 48 hours?: Yes Impression/Plan - Problem List Problem List: C. diff being treated w/Vanco HgB 8.0 and stable Satis PO progress S/P lap appy Dschg per Hospitalist recommendation. F/U in my office 2 weeks
--- NOTE | 2019-04-17 10:11 | Discharge Plan ---
Discharge Plan Problem Reviewed?: Yes Disposition: Home, Self Care Condition: Good Activity Restrictions: Activity as Tolerated Shower Restrictions: No Driving Restrictions: No Instruction Topics: Vancomycin capsules, Clostridium Difficile Toxin Stool, Appendectomy, Appendectomy Laparoscopic Dc, Clostridium Difficile Infec Health Concerns: You were admitted to the hospital because of abdominal pain and fever. The concern was that you had appendicitis and you were taken to the OR. It appears that the likely cause of your fever and pain was a C difficile infection. This likely occurred because of recent antibiotic use. This infection can cause abdominal pain and diarrhea. You were started on oral vancomycin and your diarrhea has improved. Please continue to take the medication as prescribed. Please return to the emergency department if you develop worsening nausea, vomiting, abdominal pain, fever. Plan of Treatment: Please take vancomycin 125 mg four times a day for 9 more days. Care Goals: It is recommended you follow-up with your primary care physician within 1 week. Please return to the emergency department if you develop worsening abdominal pain, nausea, vomiting, fever. Assessment: The patient expressed understanding of the treatment and plan. No Smoking: If you smoke, Please STOP! Call for help. Follow-up with: Kimberly Mg MD [Primary Care Provider] - Alan Dunlap DO [Provider Admit Priv/Credential] - 2 Weeks
--- NOTE | 2019-04-17 14:15 | DISCHARGE SUMMARY ---
"Discharge Summary Admit Date: 04/14/19 Discharge Date: 04/17/19 Discharging Provider: Chad Escamilla Primary Care Provider: Kimberly Mg Code Status: Do Not Attempt Resuscitation Condition at Discharge: Good Discharge Disposition: 01 Home, Self Care - DIAGNOSES Admission Diagnoses: Sepsis Diverticulitis Status post appendectomy Discharge Diagnoses with Status of Each Condition: Sepsis - resolved. Secondary to C. Diff. Discharged on oral Vancomycin. Had been afebrile for 24 hours. C. Diff - Improving. Diarrhea had greatly decreased prior to discharge. Cause of her sepsis. Discharged on oral Vancomycin to complete 10 days of therapy. Diverticulitis - Stable. Chronic. Initially thought to be possible source of sepsis but imaging revealed this is chronic in nature and C. Diff was positive. Status post appendectomy - Stable. Initially thought to have appendicits. Went to OR for appendectomy. Appendix was relatively unremarkable. Outpatient follow up with surgery. Anemia - Stable. Hemoglobin decreased initially was likely dilutional given amount of IV fluids she received. Iron studies and B12 were unremarkable. Hemo globin remained stable with no evidence of bleeding. - HPI History of Present Illness: This is a 74-year-old female with a past medical history significant for recurrent diverticulitis and severe diverticulosis who presented to the hospital yesterday complaining of a fever and right lower quadrant abdominal pain. She underwent a CT scan yesterday which showed inflammation of the cecum. The appendix could not be visualized. Given her fever, elevated white count and poor oral intake, there was concern for appendicitis. She was taken to the OR yesterday where her appendix was removed. Grossly, the appendix appeared relatively unremarkable. Today she continued to spike a fever and she does not feel well. She complains of predominantly right lower quadrant abdominal pain after her surgery. She denies left lower quadrant pain. Continues to report feeling febrile but denies chills. She denies shortness of breath, chest pain, cough. She reports no dysuria, urgency, frequency. She did have 2 urinary tract infections over the past few months for which she completed a course of antibiotics. She is concerned she might have diverticulitis given her history.' We did discuss goals of care and she would like to be a DNR. - CONSULTS | PROCEDURES Consultations: General Surgery Procedures: Appendectomy - HOSPITAL COURSE Hospital Course: Admitted for suspected appendicitis and went to the OR. Appendix was unremarkable but was removed. Continued to have fevers POD #1. Medicine admitted the patient for sepsis. She received IV fluids and remained on Zosyn IV. Review of CT showed chronic diverticulitis and inflammation near the cecum. She continued to spike fevers and was tachycardic but never hypotensive or developed a white count. She then began to have diarrhea and C. Diff came back positive. Zosyn was discontinued and she was started on oral Vancomycin. Her diarrhea improved and she remained afebrile for 24 hours. She was discharged on oral Vancomycin to complete 10 days of therapy. - ALLERGIES Allergies/Adverse Reactions: Allergies Allergy/AdvReac Type Severity Reaction Status Date / Time epinephrine Allergy Unknown Verified 04/14/19 00:50 erythromycin base Allergy Rash Verified 04/14/19 09:15 indomethacin Allergy Unknown Verified 04/14/19 00:50 Latex, Natural Rubber Allergy Rash Verified 04/14/19 09:15 Sulfa (Sulfonamide Allergy Dizziness Verified 04/14/19 09:15 Antibiotics) - MEDICATIONS Home Medications: Ambulatory Orders Medication Instructions Recorded Confirmed Aspirin Chewable [[place] 81 mg PO DAILY 04/14/19 04/14/19 Aspirin] Calcium Carb/Vitamin D3/Vit K1 1 cap PO DAILY 04/14/19 04/14/19 [Viactiv 650 mg-12.5 Mcg Chew] Meloxicam [Qmiiz Odt] 7.5 mg PO DAILY 04/14/19 04/14/19 [place]-3/Dha/Epa/Fish Oil [Fish Oil 1 cap PO DAILY 04/14/19 04/14/19 1,000 mg Softgel] Omeprazole 40 mg PO DAILY 04/14/19 04/14/19 Vancomycin [Vancocin] 125 mg PO QID 8 Days #24 capsule 04/17/19 Home Medications Other | Comments: Aspirin Chewable [[facility] [place] Aspirin] 81 mg PO DAILY 04/14/19 Calcium Carb/Vitamin D3/Vit K1 [Viactiv 650 mg-12.5 Mcg Chew] 1 cap PO DAILY 04/14/19 Meloxicam [Qmiiz Odt] 7.5 mg PO DAILY 04/14/19 [place]-3/Dha/Epa/Fish Oil [Fish Oil 1,000 mg Softgel] 1 cap PO DAILY 04/14/19 Omeprazole 40 mg PO DAILY 04/14/19 - PHYSICAL EXAM AT DISCHARGE General Appearance: positive: No acute distress, Alert Eyes Bilateral: positive: Normal inspection ENT: positive: ENT inspection nml Neck: positive: Nml inspection Respiratory: positive: No respiratory distress. negative: Wheezes, Rales, R honchi Cardiovascular: positive: Regular rate & rhythm, No murmur. negative: Tachycardia, Bradycardia Abdomen: positive: Nml bowel sounds, No distention, Tenderness (Mild diffuse tenderness.). negative: Non-tender, Guarding, Rebound Skin: positive: No rash, Warm, Dry Extremities: positive: No pedal edema Neurologic/Psychiatric: positive: Oriented x3, Motor nml. negative: Disoriented to person, Disoriented to place, Disoriented to time - LABS Result Diagrams: 04/17/19 04:50 04/17/19 04:50 - DIAGNOSTIC IMAGING Diagnostic Imaging Results: Final report reviewed - SEPSIS Current Stage of Sepsis: Resolved Possible source of Sepsis: GI tract/intra-abdominal Sepsis Criteria: Recorded Temperature greater than 38.3C or Less than 36C, Recorded Heart Rate greater than 90 bpm, SBP less than 90 mmHg - FOLLOW UP Follow Up: She was asked to follow up with her primary care physician within one week and general surgery in two weeks. - TIME SPENT Time Spent in Discharge (Minutes): 35"
[2019-04-17] MEDS ORDERED: LIDOCAINE 2% 10 ML MDV SUBQ ONE (15:49)
[2019-04-17] MEDS ORDERED: ePHEDrine 50 MG/ML VIAL IVP ONE (15:49)
[2019-04-17] MEDS ORDERED: PROPOFOL 200 MG/20 ML VIAL IVP ONE (15:49)
[2019-04-17] MEDS ORDERED: PHENYLEPHRINE 10 MG/ML VIAL IV ONE (15:49)
[2019-04-17] MEDS ORDERED: MIDAZOLAM 2 MG/2 ML VIAL IVP ONE (15:49)
[2019-04-17] MEDS ORDERED: ROCURONIUM 50 MG/5 ML VIAL IVP ONE (15:49)
[2019-04-17] MEDS ORDERED: fentaNYL 100 MCG/2 ML VIAL IVP ONE (15:49)
[2019-04-17] MEDS ORDERED: SUGAMMADEX 200 MG/2 ML VIAL IVP ONE (15:49)
[2019-04-17 15:52] VITALS: BP 103/63
== END 2019-04-17 15:50 | disposition home or self-care (01) | DRG 872 ==
LOC: ED 00:32 → SDS 08:15 → MS2 17:20 → SDS 04-15 08:36
PROVIDERS: ADMIT Specialist; ATTEND Internal Medicine
PROC: 0DTJ4ZZ Resection of Appendix, Percutaneous Endoscopic Approach (ICD-10-PCS; principal; 2019-04-14 13:30)
DX: R10.31 Right lower quadrant pain (principal); A41.9 Sepsis, unspecified organism; A04.72 Enterocolitis due to Clostridium difficile, not specified as recurrent; K57.32 Diverticulitis of large intestine without perforation or abscess without bleeding; K66.0 Peritoneal adhesions (postprocedural) (postinfection); N30.20 Other chronic cystitis without hematuria; Z90.49 Acquired absence of other specified parts of digestive tract; T36.1X5A Adverse effect of cephalosporins and other beta-lactam antibiotics, initial encounter; D64.9 Anemia, unspecified; K21.9 Gastro-esophageal reflux disease without esophagitis; K44.9 Diaphragmatic hernia without obstruction or gangrene; M41.9 Scoliosis, unspecified; G89.29 Other chronic pain; M54.9 Dorsalgia, unspecified; R51 Headache; Y92.009 Unspecified place in unspecified non-institutional (private) residence as the place of occurrence of the external cause; G14 Postpolio syndrome; Z79.82 Long term (current) use of aspirin; Z86.010 Personal history of colon polyps; Z87.19 Personal history of other diseases of the digestive system
CPT/HCPCS: 36415; 44970; 71045; 74177; 76705; 80048; 80053; 81003; 82607; 82728; 83540; 83605; 83690; 83735; 84466; 84484; 85025; 87045; 87046; 87493; 93005; 99284; 99285; A9270; J0131; J1170; J1650; J7120; J8499; Q9967; 81001; 87086

== ENCOUNTER 2019-04-20 19:54 | Inpatient (IN) | payer MEDICARE, OTHER ==
--- NOTE | 2019-04-20 21:53 | ED Physician Documentation ---
History of Present Illness - Stated complaint Stated Complaint: C DIFF F/U, HIGH BP, HEART RATE, SWELLING IN LEGS - Chief complaint Chief Complaint: Abd Pain - Additonal information Additional information: This is a 74-year-old female who returns to the hospital due to abdominal discomfort, lower leg swelling. Patient has a history of recurrent diverticulitis and severe diverticulosis, she was admitted on 04/14 due to concern for appendicitis she had abdominal pain and CT findings that suggested appendicitis, however her appendix was normal in the OR after she continued to have a fever so she was admitted for sepsis. She was started on IV antibiotics, she was found to have C. difficile so she was started on oral vancomycin 4 days ago. She had some improvement of her diarrhea and was afebrile for 24 hours so was discharged home. She has had continued diarrhea and some continued abdominal discomfort which has worsened since then and is now moderate to severe. Her legs have also become swollen bilaterally, but greater on the left. 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 - Present Medications Home Medications: Ambulatory Orders Medication Instructions Recorded Confirmed Aspirin Chewable [St [place] 81 mg PO DAILY 04/14/19 04/21/19 Aspirin] Calcium Carb/Vitamin D3/Vit K1 1 cap PO DAILY 04/14/19 04/21/19 [Viactiv 650 mg-12.5 Mcg Chew] Meloxicam [Qmiiz Odt] 7.5 mg PO DAILY 04/14/19 04/21/19 [place]-3/Dha/Epa/Fish Oil [Fish Oil 1 cap PO DAILY 04/14/19 04/21/19 1,000 mg Softgel] Omeprazole 40 mg PO DAILY 04/14/19 04/21/19 Vancomycin [Vancocin] 125 mg PO QID 8 Days #24 capsule 04/17/19 04/21/19 - Allergies Allergies/Adverse Reactions: Allergies Allergy/AdvReac Type Severity Reaction Status Date / Time epinephrine Allergy Unknown Verified 04/20/19 20:17 erythromycin base Allergy Rash Verified 04/20/19 20:17 indomethacin Allergy Unknown Verified 04/20/19 20:17 Latex, Natural Rubber Allergy Rash Verified 04/20/19 20:17 Sulfa (Sulfonamide Allergy Dizziness Verified 04/20/19 20:17 Antibiotics) - Social History Does the pt smoke?: No Smoking Status: Never smoker Does the pt drink ETOH?: No Does the pt have substance abuse?: No Results - Vitals Vitals: Oxygen O2 Source Room air - EKG (time done) 22:38 Other comments: Other comments (Rate 90, rhythm sinus, there is no significant ST segment elevation, there is questionable slight 0.[address] depression in V4 V5. [place] is normal. T wave flattening in V3. QTC 441) - Labs Labs: Microbiology 04/20/19 23:05 Urine Culture - Preliminary Urine,Clean Catch Escherichia Coli Laboratory Tests 04/20/19 04/20/19 04/20/19 22:34 22:34 22:34 WBC 8.7 RBC 2.96 L Hgb 9.3 L Hct 29.7 L MCV 100.3 H MCH 31.4 H MCHC 31.3 L RDW 16.5 H Plt Count 297 MPV 9.7 Neut # (Auto) Not Reportable Lymph # (Auto) Not Reportable [place] # (Auto) Not Reportable Eos # (Auto) Not Reportable Baso # (Auto) Not Reportable Absolute Nucleated RBC Not Reportable Total Counted 100 Band Neuts % (Manual) 7 Abnorm Lymph % (Manual) 0 Metamyelocytes % 7 H Myelocytes % 7 H Nucleated RBC % Not Reportable Neutrophils # (Manual) 6.1 Lymphocytes # (Manual) 0.9 L Monocytes # (Manual) 0.4 Eosinophils # (Manual) 0.1 Basophils # (Manual) 0.0 Nucleated RBCs 1 Differential Comment MANUAL DIFFERENTIAL Manual Slide Review Indicated Platelet Estimate NORMAL (130-450,000) RBC Morph Micro Appear NORMAL APPEARANCE PT 12.5 INR 1.1 Sodium 143 Potassium 2.5 L* Chloride 109 Carbon Dioxide 26 Anion Gap 8.0 BUN 11 Creatinine 0.5 Estimated GFR (MDRD) 121 Glucose 104 H Lactic Acid Calcium 7.8 L Total Bilirubin 1.1 H AST 51 H ALT 51 Alkaline Phosphatase 50 Troponin I High Sens B-Natriuretic Peptide Total Protein 5.6 L Albumin 3.0 L Globulin 2.6 Albumin/Globulin Ratio 1.2 Lipase 34 TSH Urine Color Urine Clarity Urine pH Ur Specific [place] Urine Protein Urine Glucose (UA) Urine Ketones Urine Occult Blood Urine Nitrite Urine Bilirubin Urine Urobilinogen Ur Leukocyte Esterase Urine RBC Urine WBC Ur Squamous Epith Cells Urine Crystals Urine Bacteria Ur Microscopic Review Urine Culture Comments 04/20/19 04/20/19 04/20/19 22:34 22:34 22:34 WBC RBC Hgb Hct MCV MCH MCHC RDW Plt Count MPV Neut # (Auto) Lymph # (Auto) [place] # (Auto) Eos # (Auto) Baso # (Auto) Absolute Nucleated RBC Total Counted Band Neuts % (Manual) Abnorm Lymph % (Manual) Metamyelocytes % Myelocytes % Nucleated RBC % Neutrophils # (Manual) Lymphocytes # (Manual) Monocytes # (Manual) Eosinophils # (Manual) Basophils # (Manual) Nucleated RBCs Differential Comment Manual Slide Review Platelet Estimate RBC Morph Micro Appear PT INR Sodium Potassium Chloride Carbon Dioxide Anion Gap BUN Creatinine Estimated GFR (MDRD) Glucose Lactic Acid 1.0 Calcium Total Bilirubin AST ALT Alkaline Phosphatase Troponin I High Sens B-Natriuretic Peptide 50 Total Protein Albumin Globulin Albumin/Globulin Ratio Lipase TSH 2.86 Urine Color Urine Clarity Urine pH Ur Specific [place] Urine Protein Urine Glucose (UA) Urine Ketones Urine Occult Blood Urine Nitrite Urine Bilirubin Urine Urobilinogen Ur Leukocyte Esterase Urine RBC Urine WBC Ur Squamous Epith Cells Urine Crystals Urine Bacteria Ur Microscopic Review Urine Culture Comments 04/20/19 04/20/19 22:34 23:05 WBC RBC Hgb Hct MCV MCH MCHC RDW Plt Count MPV Neut # (Auto) Lymph # (Auto) [place] # (Auto) Eos # (Auto) Baso # (Auto) Absolute Nucleated RBC Total Counted Band Neuts % (Manual) Abnorm Lymph % (Manual) Metamyelocytes % Myelocytes % Nucleated RBC % Neutrophils # (Manual) Lymphocytes # (Manual) Monocytes # (Manual) Eosinophils # (Manual) Basophils # (Manual) Nucleated RBCs Differential Comment Manual Slide Review Platelet Estimate RBC Morph Micro Appear PT INR Sodium Potassium Chloride Carbon Dioxide Anion Gap BUN Creatinine Estimated GFR (MDRD) Glucose Lactic Acid Calcium Total Bilirubin AST ALT Alkaline Phosphatase Troponin I High Sens 4.8 B-Natriuretic Peptide Total Protein Albumin Globulin Albumin/Globulin Ratio Lipase TSH Urine Color DARK YELLOW Urine Clarity CLEAR Urine pH 5.5 Ur Specific [place] 1.020 Urine Protein NEGATIVE Urine Glucose (UA) NEGATIVE Urine Ketones 15 H Urine Occult Blood NEGATIVE Urine Nitrite NEGATIVE Urine Bilirubin NEGATIVE Urine Urobilinogen 0.2 (NORMAL) Ur Leukocyte Esterase TRACE H Urine RBC 0-5 Urine WBC 4-5 Ur Squamous Epith Cells RARE Squamous Urine Crystals 26-50 Ca Oxalate Urine Bacteria Few Ur Microscopic Review INDICATED Urine Culture Comments INDICATED - Rads (name of study) Ct abd/pelvis Radiology: Other (Severe pancolitis) Duplex LE Radiology: Other (Possible left non-occlusive profundus DVT) PD MEDICAL DECISION MAKING - ED course Complexity details: considered differential (Colitis, obstruction, diverticulitis, perforation, ischemia, DVT, hypoalbuminemia, electrolye abnormality) ED course: Pt has diffuse tenderness. Labs show low protein and hypokalemia of 2.5. No leukocytosis and pt is afebrile. She was given zofran and pain medication and CT performed showing worsened pancolitis, likely from her C. diff. Lactate normal and vital signs unremarkable. DVT study shows possible small thrombus in the left lower leg. She was admitted for further treatment of her hypokalemia, pancolitis, and DVT. Pt updated with results and is in agreement with the plan. Departure - Departure Disposition: [address] [facility] DC/[place] Clinical Impression: Colitis, C. difficile colitis, Hypokalemia Discharge Date/Time: 04/21/19 02:04
[2019-04-20 22:42] LABS: INR 1.1 (0.8-1.2); PT - PROTHROMBIN TIME 12.5 secs (9.9-12.6)
[2019-04-20 22:43] LABS: EOSINOPHILS % (AUTO) 2.4 %; HGB - HEMOGLOBIN 9.3 g/dL (12.0-16.0); LYMPHOCYTES % (AUTO) 11.7 %; MEAN CORPUSCULAR HEMOGLOBIN 31.4 pg (27.0-31.0); MEAN CORPUSCULAR HGB CONC 31.3 g/dL (32.0-36.0); MEAN CORPUSCULAR VOLUME 100.3 fL (81.0-99.0); MEAN PLATELET VOLUME 9.7 fL (7.9-10.8); NEUTROPHILS % (AUTO) 66.5 %; PLT - PLATELET COUNT 297 10^3/uL (130-450); RED BLOOD COUNT 2.96 10^6/uL (4.20-5.40); RED CELL DISTRIBUTION WIDTH 16.5 % (12.0-15.0); WHITE BLOOD COUNT 8.7 x10^3/uL (4.8-10.8)
[2019-04-20 22:52] LABS: ALBUMIN/GLOBULIN RATIO 1.2 (1.0-2.2); BILIRUBIN,TOTAL 1.1 mg/dL (0.2-1.0); CALCIUM 7.8 mg/dL (8.5-10.3); CREATININE 0.5 mg/dL (0.4-1.0); TOTAL PROTEIN 5.6 g/dL (6.7-8.2)
[2019-04-20 23:08] LABS: ABNORMAL LYMPHS % (MANUAL) 0 %
--- NOTE | 2019-04-20 23:12 | XRAY Report ---
Reason: mild dyspnea, edema Procedure Date: 04/20/2019 Accession Number: [id number] / [id number] Procedure: XR - Chest 1 View X-Ray CPT Code: 00259 Final Report FULL RESULT: EXAM: CHEST RADIOGRAPHY EXAM DATE: 04/20/2019 10:50 PM. CLINICAL HISTORY: Mild dyspnea, edema. Shortness of breath. COMPARISON: CHEST 1 VIEW 04/15/2019 8:54 AM ABDOMEN/PELVIS W/ 04/14/2019 1:59 AM. TECHNIQUE: 1 view. FINDINGS: Lungs/Pleura: No focal opacities evident. No pleural effusion. No pneumothorax. Mediastinum: Within exam limitations, the cardiomediastinal contour is normal. Moderate hiatal hernia is again noted. Other: Moderate dextroscoliosis in the thoracic spine. Patient is rotated to the left. IMPRESSION: Moderate hiatal hernia is again noted. No acute findings are seen. RADIA
[2019-04-20 23:18] LABS: BAND NEUTROPHILS % (MANUAL) 7 %; DIFFERENTIAL COMMENT MANUAL DIFFERENTIAL; EOSINOPHILS # (MANUAL) 0.1 10^3/uL (0-0.7); LYMPHOCYTES # (MANUAL) 0.9 10^3/uL (1.5-3.5); LYMPHOCYTES % (MANUAL) 10 %; METAMYELOCYTES % (MANUAL) 7 %; MONOCYTES # (MANUAL) 0.4 10^3/uL (0.0-1.0); MYELOCYTES % (MANUAL) 7 %; PLATELET ESTIMATE, MANUAL NORMAL (130-450,000) (NORMAL); RBC MORPHOLOGY (MULTIPLE) NORMAL APPEARANCE (NORMAL)
[2019-04-20 23:21] LABS: GLUCOSE, URINE (UA) NEGATIVE (NEGATIVE); KETONES,URINE (UA) 15 mg/dL (NEGATIVE); LEUKOCYTE ESTERASE, URINE TRACE (NEGATIVE); NITRITE,URINE NEGATIVE (NEGATIVE); OCCULT BLOOD,URINE NEGATIVE (NEGATIVE); PH,URINE 5.5 PH (5.0-7.5); PROTEIN,URINE NEGATIVE (NEGATIVE); UROBILINOGEN,URINE 0.2 (NORMAL) E.U./dL (NORMAL)
[2019-04-20 23:28] LABS: CLARITY,URINE CLEAR (CLEAR)
[2019-04-20 23:29] LABS: BACTERIA,URINE Few /HPF (None Seen); BILIRUBIN,URINE NEGATIVE (NEGATIVE); CRYSTALS,URINE 26-50 Ca Oxalate /LPF; ICTOTEST,URINE NEGATIVE; RBC,URINE 0-5 /HPF (0-5); SQUAMOUS EPITHELIAL CELL,UR RARE Squamous (<= Few)
[2019-04-20] MEDS ORDERED: IOVERSOL 320 100 ML VIAL IVP ONE (23:36)
[2019-04-21] MEDS ORDERED: IOVERSOL 320 100 ML VIAL IVP ONE (00:38)
--- NOTE | 2019-04-21 00:57 | Ultrasound Report ---
Reason: L>R leg swelling, recent surgery Procedure Date: 04/21/2019 Accession Number: [id number] / [id number] Procedure: US - Duplex Ext Veins Bilateral CPT Code: Final Report FULL RESULT: EXAM: BILATERAL LOWER EXTREMITY VENOUS ULTRASOUND EXAM DATE: 04/21/2019 12:14 AM CLINICAL HISTORY: Bilateral leg swelling, recent surgery. COMPARISON: ABDOMEN/PELVIS W/ 04/14/2019 1:59 AM. TECHNIQUE: Real-time sonographic vascular imaging was performed by the system support administrator through the lower extremities utilizing both color-flow and Doppler spectral analysis. Multiple telemarketing sales representative static images were saved for review. FINDINGS: Right: Common Femoral Vein (CFV): Normal. CFV-GSV Junction: Normal. Profunda Femoral Vein (PFV): Normal. Femoral Vein (FV) Prox: Normal. Femoral Vein (FV) Mid: Normal. Femoral Vein (FV) Dist: Normal. Popliteal Vein: Normal. Posterior Tibial Veins: Normal. Peroneal Veins: Normal. Left: Common Femoral Vein (CFV): Normal. CFV-GSV Junction: Normal. Profunda Femoral Vein (PFV): Suspicion for small chronic nonocclusive DVT with irregular color flow adjacent to clot suspected. Vessel does compress reasonably well on the submitted image. Femoral Vein (FV) Prox: Normal. Femoral Vein (FV) Mid: Normal. Femoral Vein (FV) Dist: Normal. Popliteal Vein: Normal. Posterior Tibial Veins: Atrophic lower leg with limited views of the veins but no definite thrombosis. Peroneal Veins: Atrophic lower leg with limited views of the veins but no definite thrombosis. Other: Soft tissue edema in the left leg. IMPRESSION: 1. No evidence for acute deep venous thrombosis bilaterally. 2. Possible small chronic nonocclusive left profundus DVT. RADIA
--- NOTE | 2019-04-21 01:11 | CT Report ---
Reason: increasing pain, recent diverticulitis, c diff Procedure Date: 04/21/2019 Accession Number: [id number] / [id number] Procedure: CT - Abdomen/Pelvis W CPT Code: Final Report FULL RESULT: EXAM: CT ABDOMEN AND PELVIS EXAM DATE: 04/21/2019 12:40 AM CLINICAL HISTORY: Increasing pain, recent diverticulitis, Clostridium difficile. COMPARISONS: ABDOMEN/PELVIS W/ 04/14/2019 1:59 AM. TECHNIQUE: Routine helical CT imaging was performed through the abdomen and pelvis. IV contrast: Yes. Enteric contrast: No. Reconstructions: Coronal and sagittal. In accordance with CT protocol optimization, one or more of the following dose reduction techniques were utilized for this exam: automated exposure control, adjustment of mA and/or KV based on patient size, or use of iterative reconstructive technique. FINDINGS: Lung Bases: Moderate hiatal hernia. Liver: Unremarkable. No suspicious masses. Gallbladder/Bile Ducts: Unremarkable. Spleen: Unremarkable. Pancreas: Unremarkable. Adrenal Glands: Unremarkable. Kidneys: Tiny left renal cysts. No suspicious masses or hydronephrosis. Peritoneal Cavity/Bowel: Severe diffuse colonic wall edema. No pneumatosis or portal venous gas. No free air. Duodenal diverticulosis. Pelvic Organs: Bladder, uterus, and adnexa appear unremarkable. Vasculature: Moderate atherosclerotic disease of the aorta and branches. No aneurysm seen. Bones: No acute or aggressive appearing abnormality. Moderate scoliosis. Other: Severe left buttocks and thigh muscular atrophy. IMPRESSION: 1. Severe pancolitis, progressed from the recent CT. Consider C. difficile colitis amongst other infectious causes. 2. Moderate atherosclerotic disease of the aorta and branches. 3. Moderate hiatal hernia. RADIA
[2019-04-21] MEDS ORDERED: MAGNESIUM SULFATE 1 GM/2 ML VIAL IVP STA (01:20)
[2019-04-21] MEDS ORDERED: MORPHINE 2 MG/ML CARPUJECT IVP PRN (01:22)
[2019-04-21] MEDS ORDERED: POTASSIUM CHLORIDE 20 MEQ TABLET PO STA ×2 (01:31→06:47)
--- NOTE | 2019-04-21 02:23 | HISTORY & PHYSICAL EXAMINATION ---
Chief Complaint - Chief Complaint Chief Complaint: Diarrhea History of Present Illness - Admitted From Admitted From:: Home - History Obtained From Records Reviewed: Yes History obtained from: Patient, Spouse, ER Physician, EMR - History of Present Illness HPI Comment/Other: This is a pleasant 74-year-old female with a past medical history significant for severe diverticulosis With diverticulitis in the past who presents today complaining of worsening diarrhea. She was just discharged a few days ago after being diagnosed with initially suspected appendicitis and underwent an appendectomy. She ended up having C. difficile and was treated with oral vancomycin and discharged this past Wednesday. She is taking the vancomycin at home as prescribed. She reports her abdominal pain has improved but her diarrhea is becoming more severe and she noticed her heart rate was elevated today. She has been having nearly 4 bowel movements an hour. Stool is foul- smelling with no blood. There is urgency with each bowel movement and she wakes up in the middle the night to defecate. She reports no fevers, chills, nausea, vomiting. She denies chest pain or shortness of breath. She denies dysuria, urgency, frequency. She does note her legs have become more swollen since she was hospitalized and that she gained approximately 8 pounds. She underwent Dopplers of the lower extremities which showed no acute DVT but there was a possible small chronic nonocclusive DVT in the profunda femoral vein In the emergency department, she was afebrile, tachycardic in the 90s, normotensive. Labs were significant for white count of 8.7 and 7% bands. Her potassium was 2.5. Albumin was low at 3.0, Total bilirubin 1.1, AST 51. She underwent a CT of the abdomen and pelvis which revealed severe pancolitis suggestive of C. difficile. Given her worsening diarrhea, severe pain colitis on imaging, medicine was consulted for admission. I did speak with the patient once again regarding goals of care and she would like to be a DNR at this time. 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 She reports no other family history. Social History Notes: She has lived on [facility] for less than one year. She previously lived in [place], [place]. She retired about 20 years ago. 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 She reports no alcohol or smoking. - Substance History Use: Uses substance without health or social issues: NONE Meds/Allgy - Home Medications Home Medications: Ambulatory Orders Medication Instructions Recorded Confirmed Aspirin Chewable [St [place] 81 mg PO DAILY 04/14/19 04/14/19 Aspirin] Calcium Carb/Vitamin D3/Vit K1 1 cap PO DAILY 04/14/19 04/14/19 [Viactiv 650 mg-12.5 Mcg Chew] Meloxicam [Qmiiz Odt] 7.5 mg PO DAILY 04/14/19 04/14/19 [place]-3/Dha/Epa/Fish Oil [Fish Oil 1 cap PO DAILY 04/14/19 04/14/19 1,000 mg Softgel] Omeprazole 40 mg PO DAILY 04/14/19 04/14/19 Vancomycin [Vancocin] 125 mg PO QID 8 Days #24 capsule 04/17/19 - Allergies Allergies/Adverse Reactions: Allergies Allergy/AdvReac Type Severity Reaction Status Date / Time epinephrine Allergy Unknown Verified 04/20/19 20:17 erythromycin base Allergy Rash Verified 04/20/19 20:17 indomethacin Allergy Unknown Verified 04/20/19 20:17 Latex, Natural Rubber Allergy Rash Verified 04/20/19 20:17 Sulfa (Sulfonamide Allergy Dizziness Verified 04/20/19 20:17 Antibiotics) Review of Systems - Constitutional Constitutional: denies: Fatigue, Fever, Chills, Weakness, Poor appetite - Cardiovascular Cariovascular: denies: Chest pain, Exertional dyspnea, Decr. exercise tolerance - Respiratory Respiratory: denies: SOB at rest, SOB with exertion - Gastrointestinal Gastrointestinal: reports: Abdominal pain, Diarrhea, Change in bowel habits. denies: Constipation, Black stools, Bloody stools, Nausea, Vomiting - Genitourinary Genitourinary: denies: Dysuria, Frequency, Urgency - Musculoskeletal Musculoskeletal: denies: Muscle weakness - Integumentary Integumentary: denies: Rash - Neurological Neurological: denies: General weakness, Focal weakness, Numbness - All Other Systems All Other Systems: reports: Reviewed and negative Prior Level of Functionality: Independent with ADL's. Exam - Vital Signs Reviewed Vital Signs: Yes Vital Signs: Vital Signs x48h Temp Pulse Resp BP Pulse Ox 04/21/19 01:21 86 18 122/66 97 04/20/19 20:17 36.9 C 97 16 125/56 L 99 - Physical Exam General Appearance: positive: No acute distress, Alert Eyes Bilateral: positive: Normal inspection ENT: positive: ENT inspection nml. negative: Dry mucous membranes Neck: positive: Nml inspection Respiratory: positive: No respiratory distress. negative: Wheezes, Rales, Rhonchi Cardiovascular: positive: No murmur, Tachycardia. negative: Bradycardia, Systol ic murmur, Diastolic murmur Abdomen: positive: No distention, Tenderness (Most prominent in the right lower quadrant and suprapubic region.), Abnml bowel sounds (Hyperactive). negative: Non-tender, Guarding, Rebound Skin: positive: No rash, Warm, Dry Extremities: positive: Pedal edema (+1 pitting edema in her bilateral lower extermites.) Neurologic/Psychiatric: positive: Oriented x3, Motor nml. negative: Disoriented to person, Disoriented to place, Disoriented to time Conclusion/Plan - Problem List (1) C. difficile colitis Conclusion/Plan: She is not septic but she is tachycardic and her bands are elevated at 7%. She has also had worsening of her diarrhea. Repeat imaging of the abdomen revealed severe pancolitis. Given that her diarrhea is becoming more severe and the imaging findings despite oral antibiotics, admission is warranted for IV Flagyl in addition to oral vancomycin and closer monitoring. We will continue vancomycin orally and start Flagyl IV. Will keep her n.p.o. and use morphine IV as needed for pain control. LR for IV hydration. Will consult general surgery in case her colitis becomes more severe and is refractory to medical therapy. Continue to trend her white count and monitor for signs of acidosis and renal dysfunction. (2) Chronic deep vein thrombosis (DVT) of femoral vein of left lower extremity Conclusion/Plan: Lower extremity Dopplers revealed a possible chronic nonocclusive DVT in left profunda femoral vein. Given that it is chronic in nature, will not anticoagulate at this time. We can consider another imaging modality to better evaluate the possible DVT. Will use heparin subcutaneously for DVT prophylaxis. (3) Hypokalemia Conclusion/Plan: Her potassium is depleted at 2.5 and likely made worse by her diarrhea. Her magnesium is also low. We will replace her magnesium IV and then replace her potassium intravenously as well as orally. Continue to trend daily. She may require potassium supplementation on discharge. (4) GERD (gastroesophageal reflux disease) Conclusion/Plan: She is on omeprazole at home. We will have her on Protonix IV while NPO. - Lab Results Lab results reviewed: Yes Fish Bones: 04/20/19 22:34 04/20/19 22:34 - Diagnostic Imaging Results Diagnostic Imaging Results: positive: Final report reviewed Core Measures - Anticipated LOS I expect patient to be DC'd or transferred within 96 hours.: Yes - Issues Hospital Issues and Management Plan: Severe pancolitis secondary to C. difficile infection. Will require oral vancomycin and Flagyl IV along with general surgery consultation. - DVT/VTE - Prophylaxis VTE/DVT Device ordered at admit?: Yes VTE/DVT Prophylaxis med ordered at admit?: Yes
[2019-04-21] MEDS: metroNIDAZOLE 500 MG/100 ML 500 MG/100 ML BAG IV SCH ×3 (02:45→17:52)
[2019-04-21] MEDS: LACTATED RINGERS 1,000 ML IV SCH ×3 (03:17→22:28)
[2019-04-21] MEDS: POTASSIUM CHLOR 10 MEQ/100 ML 10 MEQ/100 ML BAG IV SCH ×4 (04:28→09:39)
[2019-04-21 05:41] LABS: BASOPHILS % (AUTO) 0.7 %; HGB - HEMOGLOBIN 8.3 g/dL (12.0-16.0); LYMPHOCYTES % (AUTO) 11.8 %; MEAN CORPUSCULAR HEMOGLOBIN 30.5 pg (27.0-31.0); MEAN CORPUSCULAR HGB CONC 30.7 g/dL (32.0-36.0); MEAN CORPUSCULAR VOLUME 99.3 fL (81.0-99.0); MEAN PLATELET VOLUME 9.6 fL (7.9-10.8); MONOCYTES % (AUTO) 8.9 %; NEUTROPHILS % (AUTO) 63.6 %; PLT - PLATELET COUNT 261 10^3/uL (130-450); RED BLOOD COUNT 2.72 10^6/uL (4.20-5.40); RED CELL DISTRIBUTION WIDTH 16.7 % (12.0-15.0); WHITE BLOOD COUNT 6.1 x10^3/uL (4.8-10.8)
[2019-04-21 05:50] LABS: CALCIUM 7.4 mg/dL (8.5-10.3); CREATININE 0.4 mg/dL (0.4-1.0); MAGNESIUM 2.2 mg/dL (1.7-2.8); PHOSPHORUS 3.4 mg/dL (2.5-4.6)
[2019-04-21 05:51] LABS: ABNORMAL LYMPHS % (MANUAL) 0 %
[2019-04-21 06:21] LABS: BAND NEUTROPHILS % (MANUAL) 8 %; DIFFERENTIAL COMMENT MANUAL DIFFERENTIAL; EOSINOPHILS # (MANUAL) 0.2 10^3/uL (0-0.7); LYMPHOCYTES % (MANUAL) 17 %; METAMYELOCYTES % (MANUAL) 3 %; MONOCYTES # (MANUAL) 0.2 10^3/uL (0.0-1.0); MYELOCYTES % (MANUAL) 5 %; PLATELET ESTIMATE, MANUAL NORMAL (130-450,000) (NORMAL); RBC MORPHOLOGY (MULTIPLE) NORMAL APPEARANCE (NORMAL)
[2019-04-21] MEDS: PANTOPRAZOLE 40 MG VIAL IVP SCH (06:42)
[2019-04-21] MEDS: SODIUM CHLORIDE FLUSH 0.9% 10 ML SYRINGE IVP PRN (06:43)
[2019-04-21] MEDS: VANCOMYCIN 125 MG CAPSULE PO SCH ×4 (09:39→21:18)
[2019-04-21] MEDS: SODIUM CHLORIDE FLUSH 0.9% 10 ML SYRINGE IVP SCH ×2 (09:41→16:23)
[2019-04-21] MEDS: HEPARIN 5,000 UNIT/ML VIAL SUBQ SCH ×2 (09:41→21:17)
[2019-04-21] MEDS: SACCHAROMYCES BOULARDII 250 MG CAPSULE PO SCH ×2 (12:43→16:22)
[2019-04-21 15:03] LABS: BILIRUBIN,URINE NEGATIVE (NEGATIVE); GLUCOSE, URINE (UA) NEGATIVE (NEGATIVE); KETONES,URINE (UA) 40 mg/dL (NEGATIVE); LEUKOCYTE ESTERASE, URINE SMALL (NEGATIVE); NITRITE,URINE POSITIVE (NEGATIVE); OCCULT BLOOD,URINE NEGATIVE (NEGATIVE); PH,URINE 5.5 PH (5.0-7.5); PROTEIN,URINE NEGATIVE (NEGATIVE); UROBILINOGEN,URINE 0.2 (NORMAL) E.U./dL (NORMAL)
[2019-04-21 15:04] LABS: CLARITY,URINE HAZY (CLEAR)
[2019-04-21 15:16] LABS: BACTERIA,URINE Few /HPF (None Seen); RBC,URINE 0-5 /HPF (0-5); SQUAMOUS EPITHELIAL CELL,UR RARE Squamous (<= Few)
[2019-04-21] MEDS: CHOLECALCIFEROL 1,000 UNIT TABLET PO SCH (16:23)
--- NOTE | 2019-04-21 17:59 | PROVIDER PROGRESS NOTE ---
Hospitalist Cross-cover Note - Cross-Cover Note Cross-Cover Note: Pt c/o burning with urination. U/A from yesterday had WBC and cx pending. Her diarrhea volume is decreasing per RN. Imp: C.diff diarrhea Pancolitis Dysuria Probable UTI, caused by recent severe diarrhea Plan: Start clear liquids since diarrhea decreasing Recheck U/A with cx if indicated Add Pyridium Add empiric Cipro iv Await urine cx to focus antibx therapy
[2019-04-21] MEDS: CIPROFLOXACIN 200 MG/100 ML 100 ML IV SCH (19:02)
[2019-04-21] MEDS: PHENAZOPYRIDINE 100 MG TABLET PO SCH (21:18)
[2019-04-22] MEDS: metroNIDAZOLE 500 MG/100 ML 500 MG/100 ML BAG IV SCH ×3 (01:35→17:15)
[2019-04-22] MEDS: SODIUM CHLORIDE FLUSH 0.9% 10 ML SYRINGE IVP SCH ×4 (01:40→23:45)
[2019-04-22] MEDS: SODIUM CHLORIDE FLUSH 0.9% 10 ML SYRINGE IVP PRN ×3 (05:52→12:23)
[2019-04-22] MEDS: CIPROFLOXACIN 200 MG/100 ML 100 ML IV SCH (05:53)
[2019-04-22 05:59] LABS: EOSINOPHILS % (AUTO) 3.8 %; MEAN CORPUSCULAR VOLUME 102.3 fL (81.0-99.0); MEAN PLATELET VOLUME 9.7 fL (7.9-10.8); RED BLOOD COUNT 2.62 10^6/uL (4.20-5.40); RED CELL DISTRIBUTION WIDTH 17.1 % (12.0-15.0)
[2019-04-22] MEDS: PANTOPRAZOLE 40 MG VIAL IVP SCH (06:00)
[2019-04-22 06:01] LABS: HGB - HEMOGLOBIN 8.3 g/dL (12.0-16.0); LYMPHOCYTES % (AUTO) 13.9 %; MEAN CORPUSCULAR HEMOGLOBIN 31.7 pg (27.0-31.0); MONOCYTES % (AUTO) 7.6 %; NEUTROPHILS % (AUTO) 64.5 %; PLT - PLATELET COUNT 274 10^3/uL (130-450)
[2019-04-22] MEDS: PHENAZOPYRIDINE 100 MG TABLET PO SCH (06:02)
[2019-04-22 06:06] LABS: ABNORMAL LYMPHS % (MANUAL) 0 %
[2019-04-22 06:12] LABS: CALCIUM 7.5 mg/dL (8.5-10.3); CREATININE 0.4 mg/dL (0.4-1.0); MAGNESIUM 1.9 mg/dL (1.7-2.8); PHOSPHORUS 2.9 mg/dL (2.5-4.6)
[2019-04-22 06:22] LABS: BAND NEUTROPHILS % (MANUAL) 2 %; BASOPHILS # (MANUAL) 0.1 10^3/uL (0-0.1); BASOPHILS % (MANUAL) 1 %; EOSINOPHILS # (MANUAL) 0.1 10^3/uL (0-0.7); LYMPHOCYTES % (MANUAL) 20 %; MONOCYTES # (MANUAL) 0.2 10^3/uL (0.0-1.0); MYELOCYTES % (MANUAL) 5 %
[2019-04-22 06:23] LABS: DIFFERENTIAL COMMENT MANUAL DIFFERENTIAL; PLATELET ESTIMATE, MANUAL NORMAL (130-450,000) (NORMAL); PLATELET MORPHOLOGY NORMAL APPEARANCE (NORMAL)
[2019-04-22] MEDS: CHOLECALCIFEROL 1,000 UNIT TABLET PO SCH (08:47)
[2019-04-22] MEDS: SACCHAROMYCES BOULARDII 250 MG CAPSULE PO SCH ×2 (08:47→17:15)
[2019-04-22] MEDS: VANCOMYCIN 125 MG CAPSULE PO SCH ×4 (08:48→21:31)
[2019-04-22] MEDS: HEPARIN 5,000 UNIT/ML VIAL SUBQ SCH ×2 (08:48→21:25)
[2019-04-22] MEDS: LACTATED RINGERS 1,000 ML IV SCH (08:50)
[2019-04-22] MEDS ORDERED: LACTATED RINGERS 1,000 ML IV SCH (09:00)
--- NOTE | 2019-04-22 11:58 | PROVIDER PROGRESS NOTE ---
Assessment/Plan - Problem List (1) Pancolitis Assessment/Plan: Will reverse diet to liquids Give antiemetics Continue po VAnco and Flagyl treatment Start prn Imodium Awaiting General Surgery consult (2) C. difficile colitis Assessment/Plan: as above (3) E. coli UTI (urinary tract infection) Assessment/Plan: Dysuria stopped Today is day #2 of iv antibx, will plan a short course (4) N&V (nausea and vomiting) Assessment/Plan: Will reverse diet to liquids Give antiemetics Continue iv hydration (5) Chronic deep vein thrombosis (DVT) of femoral vein of left lower extremity Assessment/Plan: Old (6) Hypokalemia Assessment/Plan: Replace Follow BMP daily (7) Anemia Assessment/Plan: Stable Follow CBC daily (8) Dysphagia as late effect of cerebrovascular disease Assessment/Plan: Polio Hx at age 7 - Current Meds Current Meds: Current Medications Generic Name Dose Route Start Last Admin Trade Name Freq PRN Reason Stop Dose Admin Cholecalciferol 2,000 unit 04/21/19 16:00 04/22/19 08:47 Vitamin D3 PO 2,000 unit DAILY JOSÉ MIGUEL Administration Heparin Sodium (Porcine) 5,000 unit 04/21/19 09:00 04/22/19 08:48 SUBQ 5,000 unit BID JOSÉ MIGUEL Administration Metronidazole 500 mg in 100 mls @ 100 mls/hr 04/21/19 02:00 04/22/19 10:23 Flagyl 500 Mg/100 Ml IV 100 mls/hr Q8H JOSÉ MIGUEL Administration Lactated Ringer's 1,000 mls @ 0 mls/hr 04/22/19 09:00 04/22/19 10:26 Lr IV 30 mls/hr .Q0M JOSÉ MIGUEL Administration TKO Pantoprazole Sodium 40 mg 04/21/19 07:00 04/22/19 06:00 Protonix IVP 40 mg QDAC JOSÉ MIGUEL Administration Phenazopyridine HCl 100 mg 04/21/19 22:00 04/22/19 06:02 Pyridium PO Not Given TID JOSÉ MIGUEL Saccharomyces Boulardii 500 mg 04/21/19 12:00 04/22/19 08:47 Florastor PO 500 mg BIDWM JOSÉ MIGUEL Administration Sodium Chloride 10 ml 04/21/19 01:22 04/22/19 06:01 Normal Saline Flush 0.9% IVP 10 ml PRN PRN Administration NEEDED PER PROVIDER ORDERS Sodium Chloride 10 ml 04/21/19 09:00 04/22/19 08:48 Normal Saline Flush 0.9% IVP Not Given 0100,0900,1700 JOSÉ MIGUEL Vancomycin HCl 125 mg 04/21/19 09:00 04/22/19 08:48 Vancocin PO 125 mg QID JOSÉ MIGUEL Administration - Lab Result Fish Bone Diagrams: 04/23/19 05:29 04/23/19 05:29 - Additional Planning My Orders: My Active Orders 04/21/19 22:00 Phenazopyridine [Pyridium] 100 mg PO TID 04/22/19 09:00 Lactated Ringers [Lr] 1,000 ml IV TKO 04/22/19 12:00 cefTRIAXone [Rocephin] 1 gm Sodium Chloride 0.9% Minibag [Normal Saline 0.9% Minibag] 100 ml IV DAILY 04/22/19 Lunch DIET [Soft (Low Fiber) Diet] [DIET] Subjective - Subjective Patient Reports: Nausea, Other (Bad taste from crushed Pyridium) Objective Vital Signs: Vital Signs - 24 hr 04/21/19 04/21/19 04/21/19 12:52 15:52 18:20 Temperature 37.2 C 36.8 C 36.8 C Heart Rate 93 Heart Rate [ 90 86 Brachial] Respiratory 16 17 17 Rate Blood Pressure 130/65 126/66 [Right Brachial artery] O2 Saturation 97 100 98 04/21/19 04/21/19 04/22/19 20:00 23:50 05:58 Temperature 37.2 C 36.8 C 36.8 C Heart Rate Heart Rate [ 89 87 82 Brachial] Respiratory 18 16 18 Rate Blood Pressure 117/58 L 113/60 127/64 [Right Brachial artery] O2 Saturation 97 98 96 04/22/19 07:43 Temperature 36.5 C Heart Rate Heart Rate [ 83 Brachial] Respiratory 20 Rate Blood Pressure 122/65 [Right Brachial artery] O2 Saturation 97 Oxygen O2 Source Room air I&O (Last 24 Hrs): Intake and Output Totals x24h 04/20/19 04/21/19 04/22/19 23:59 23:59 23:59 Intake Total 1805 1415 Output Total 200 Balance 1605 1415 General: Alert, Oriented x3 HEENT: Mucous membr. moist/pink Neck: Supple Neuro: Non Focal, Other (She reports a Hx of polio and using a brace and hand canes, since adm she has mostly been in bed) Cardiovascular: Regular rate Respiratory: No respiratory distress Abdomen: Normal bowel sounds, Soft, No tenderness Extremities: No edema - Results Results: Laboratory Results WBC 5.0 x10^3/uL (4.8-10.8) 04/22/19 05:50 RBC 2.62 10^6/uL (4.20-5.40) L 04/22/19 05:50 Hgb 8.3 g/dL (12.0-16.0) L 04/22/19 05:50 Hct 26.8 % (37.0-47.0) L 04/22/19 05:50 MCV 102.3 fL (81.0-99.0) H 04/22/19 05:50 MCH 31.7 pg (27.0-31.0) H 04/22/19 05:50 MCHC 31.0 g/dL (32.0-36.0) L 04/22/19 05:50 RDW 17.1 % (12.0-15.0) H 04/22/19 05:50 Plt Count 274 10^3/uL (130-450) 04/22/19 05:50 MPV 9.7 fL (7.9-10.8) 04/22/19 05:50 Neut # (Auto) Not Reportable 04/22/19 05:50 Lymph # (Auto) Not Reportable 04/22/19 05:50 [place] # (Auto) Not Reportable 04/22/19 05:50 Eos # (Auto) Not Reportable 04/22/19 05:50 Baso # (Auto) Not Reportable 04/22/19 05:50 Absolute Nucleated RBC Not Reportable 04/22/19 05:50 Total Counted 100 04/22/19 05:50 Band Neuts % (Manual) 2 % (0-10) 04/22/19 05:50 Abnorm Lymph % (Manual) 0 % 04/22/19 05:50 Metamyelocytes % 3 % (-0) H 04/21/19 05:30 Myelocytes % 5 % (-0) H 04/22/19 05:50 Nucleated RBC % Not Reportable 04/22/19 05:50 Neutrophils # (Manual) 3.5 10^3/uL (1.5-6.6) 04/22/19 05:50 Lymphocytes # (Manual) 1.0 10^3/uL (1.5-3.5) L 04/22/19 05:50 Monocytes # (Manual) 0.2 10^3/uL (0.0-1.0) 04/22/19 05:50 Eosinophils # (Manual) 0.1 10^3/uL (0-0.7) 04/22/19 05:50 Basophils # (Manual) 0.1 10^3/uL (0-0.1) 04/22/19 05:50 Nucleated RBCs 1 % 04/20/19 22:34 Differential Comment MANUAL DIFFERENTIAL 04/22/19 05:50 Manual Slide Review Indicated 04/20/19 22:34 WBC Morphology NORMAL APPEARANCE (NORMAL) 04/22/19 05:50 Platelet Estimate NORMAL (130-450,000) (NORMAL) 04/22/19 05:50 Platelet Morphology NORMAL APPEARANCE (NORMAL) 04/22/19 05:50 RBC Morph Micro Appear 1+ ANISOCYTOSIS (NORMAL) 1+ POLYCHROMASIA (NORMAL) 04/22/19 05:50 RBC Morph Micro Appear 1+ ANISOCYTOSIS (NORMAL) 1+ POLYCHROMASIA (NORMAL) 04/22/19 05:50 PT 12.5 secs (9.9-12.6) 04/20/19 22:34 INR 1.1 (0.8-1.2) 04/20/19 22:34 Sodium 143 mmol/L (135-145) 04/22/19 05:50 Potassium 3.5 mmol/L (3.5-5.0) 04/22/19 05:50 Chloride 114 mmol/L (101-111) H 04/22/19 05:50 Carbon Dioxide 22 mmol/L (21-32) 04/22/19 05:50 Anion Gap 7.0 (6-13) 04/22/19 05:50 BUN 7 mg/dL (6-20) 04/22/19 05:50 Creatinine 0.4 mg/dL (0.4-1.0) 04/22/19 05:50 Estimated GFR (MDRD) 156 (>89) 04/22/19 05:50 Glucose 95 mg/dL (70-100) 04/22/19 05:50 Lactic Acid 1.0 mmol/L (0.5-2.2) 04/20/19 22:34 Calcium 7.5 mg/dL (8.5-10.3) L 04/22/19 05:50 Phosphorus 2.9 mg/dL (2.5-4.6) 04/22/19 05:50 Magnesium 1.9 mg/dL (1.7-2.8) 04/22/19 05:50 Total Bilirubin 1.1 mg/dL (0.2-1.0) H 04/20/19 22:34 AST 51 IU/L (10-42) H 04/20/19 22:34 ALT 51 IU/L (10-60) 04/20/19 22:34 Alkaline Phosphatase 50 IU/L (42-121) 04/20/19 22:34 Troponin I High Sens 4.8 ng/L (2.3-14.8) 04/20/19 22:34 B-Natriuretic Peptide 50 pg/mL (5-100) 04/20/19 22:34 Total Protein 5.6 g/dL (6.7-8.2) L 04/20/19 22:34 Albumin 3.0 g/dL (3.2-5.5) L 04/20/19 22:34 Globulin 2.6 g/dL (2.1-4.2) 04/20/19 22:34 Albumin/Globulin Ratio 1.2 (1.0-2.2) 04/20/19 22:34 Lipase 34 U/L (22-51) 04/20/19 22:34 TSH 2.86 uIU/mL (0.34-5.60) 04/20/19 22:34 Urine Color YELLOW 04/21/19 14:50 Urine Clarity HAZY (CLEAR) 04/21/19 14:50 Urine pH 5.5 PH (5.0-7.5) 04/21/19 14:50 Ur Specific [place] 1.020 (1.002-1.030) 04/21/19 14:50 Urine Protein NEGATIVE mg/dL (NEGATIVE) 04/21/19 14:50 Urine Glucose (UA) NEGATIVE mg/dL (NEGATIVE) 04/21/19 14:50 Urine Ketones 40 mg/dL (NEGATIVE) H 04/21/19 14:50 Urine Occult Blood NEGATIVE (NEGATIVE) 04/21/19 14:50 Urine Nitrite POSITIVE (NEGATIVE) H 04/21/19 14:50 Urine Bilirubin NEGATIVE (NEGATIVE) 04/21/19 14:50 Urine Urobilinogen 0.2 (NORMAL) E.U./dL (NORMAL) 04/21/19 14:50 Ur Leukocyte Esterase SMALL (NEGATIVE) H 04/21/19 14:50 Urine RBC 0-5 /HPF (0-5) 04/21/19 14:50 Urine WBC >25 /HPF (0-5) H 04/21/19 14:50 Ur Squamous Epith Cells RARE Squamous (<= Few) 04/21/19 14:50 Urine Crystals 26-50 Ca Oxalate /LPF 04/20/19 23:05 Urine Bacteria Few /HPF (None Seen) 04/21/19 14:50 Ur Microscopic Review INDICATED 04/20/19 23:05 Urine Culture Comments INDICATED 04/21/19 14:50
[2019-04-22] MEDS: ONDANSETRON 4 MG/2 ML VIAL IVP PRN (12:21)
[2019-04-22] MEDS: cefTRIAXone 1 GM in SODIUM CHLORIDE 0.9% MINIBAG 100 ML IV SCH (12:24)
[2019-04-22] MEDS ORDERED: LOPERAMIDE 2 MG CAPSULE PO PRN (14:29)
[2019-04-22] MEDS ORDERED: SODIUM CHLORIDE 0.9% 1,000 ML IV SCH (15:00)
[2019-04-23] MEDS: SODIUM CHLORIDE FLUSH 0.9% 10 ML SYRINGE IVP PRN ×4 (02:05→06:57)
[2019-04-23] MEDS: metroNIDAZOLE 500 MG/100 ML 500 MG/100 ML BAG IV SCH ×3 (02:06→17:32)
[2019-04-23 05:48] LABS: BASOPHILS % (AUTO) 0.7 %; EOSINOPHILS % (AUTO) 3.1 %; HGB - HEMOGLOBIN 8.2 g/dL (12.0-16.0); MEAN CORPUSCULAR HEMOGLOBIN 30.8 pg (27.0-31.0); MEAN CORPUSCULAR HGB CONC 30.4 g/dL (32.0-36.0); MEAN CORPUSCULAR VOLUME 101.5 fL (81.0-99.0); MEAN PLATELET VOLUME 9.5 fL (7.9-10.8); MONOCYTES % (AUTO) 4.8 %; NEUTROPHILS % (AUTO) 71.6 %; PLT - PLATELET COUNT 283 10^3/uL (130-450); RED BLOOD COUNT 2.66 10^6/uL (4.20-5.40); RED CELL DISTRIBUTION WIDTH 17.2 % (12.0-15.0); WHITE BLOOD COUNT 6.1 x10^3/uL (4.8-10.8)
[2019-04-23 05:50] LABS: ABNORMAL LYMPHS % (MANUAL) 0 %; BAND NEUTROPHILS % (MANUAL) 0 %
[2019-04-23 06:04] LABS: CALCIUM 7.6 mg/dL (8.5-10.3); CREATININE 0.5 mg/dL (0.4-1.0); MAGNESIUM 1.7 mg/dL (1.7-2.8); PHOSPHORUS 3.2 mg/dL (2.5-4.6)
[2019-04-23 06:07] LABS: LYMPHOCYTES # (MANUAL) 0.4 10^3/uL (1.5-3.5); LYMPHOCYTES % (MANUAL) 6 %; METAMYELOCYTES % (MANUAL) 2 %; MONOCYTES # (MANUAL) 0.1 10^3/uL (0.0-1.0); MYELOCYTES % (MANUAL) 7 %; RBC MORPHOLOGY (MULTIPLE) NORMAL APPEARANCE (NORMAL)
[2019-04-23 06:08] LABS: DIFFERENTIAL COMMENT MANUAL DIFFERENTIAL; PLATELET ESTIMATE, MANUAL NORMAL (130-450,000) (NORMAL); PLATELET MORPHOLOGY NORMAL APPEARANCE (NORMAL)
[2019-04-23] MEDS: PANTOPRAZOLE 40 MG VIAL IVP SCH (06:52)
[2019-04-23] MEDS ORDERED: POTASSIUM CHLORIDE 20 MEQ TABLET PO SCH (07:37)
[2019-04-23] MEDS: cefTRIAXone 1 GM in SODIUM CHLORIDE 0.9% MINIBAG 100 ML IV SCH (08:36)
[2019-04-23] MEDS: SACCHAROMYCES BOULARDII 250 MG CAPSULE PO SCH ×2 (08:37→17:31)
[2019-04-23] MEDS: VANCOMYCIN 125 MG CAPSULE PO SCH ×4 (08:38→20:30)
[2019-04-23] MEDS: CHOLECALCIFEROL 1,000 UNIT TABLET PO SCH (08:38)
[2019-04-23] MEDS: SODIUM CHLORIDE FLUSH 0.9% 10 ML SYRINGE IVP SCH ×3 (08:39→23:38)
[2019-04-23] MEDS: HEPARIN 5,000 UNIT/ML VIAL SUBQ SCH ×2 (08:58→20:30)
--- NOTE | 2019-04-23 10:22 | CONSULTATION NOTE ---
Referring Provider Name of Referring Provider:: Dr. Milan Consult Date: 04/23/19 Chief Complaint - Chief Complaint Chief Complaint: intractable diarrhea History of Present Illness - Admitted From Admitted From:: ER - History Obtained From Records Reviewed: yes History obtained from: pt, records Exam Limitations: none - History of Present Illness HPI Comment/Other: 74 yo female with recent UTI treated with antibiotics in February, who developed lower abd pain approx 10 days ago prompting ER evaluation where CT showed focal cecal and sigmoid thickeng but a nonvisualized appendix and acute appendicitis was suspected. Lap appy was performed with the findings of a grossly nl appendix. Pt was given several days of Zosyn and admitted because of persistent fever. She subsequently developed diarrhea and stool testing was + for C. difficile colitis. She was treated with oral vancomycin and her sx improved and she was d/c'd home several days later, only to return 3 days ago with persistent and worsening diarrhea. Repeat CT abd/pelvis showed severe pancolitis but no evidence of ileus or toxic megacolon. She was admitted and IV metronidazole was added to her oral vanco regimen. She also c/o dysuria and frequency and urine C&S was + E. coli. She was started on ceftriaxone as well. She reported watery green nonbloody stools every 45 minutes until last night when her sx have improved, with only 3 or 4 small bm's over the past 12 hours now, with improving appetite and no abd pain or fever. She takes ompeprazole chronically for "silent reflux" and continued on IV pantoprazole since admission. History - Past Medical History Cardiovascular: reports: None Respiratory: reports: None Neuro: reports: Peripheral neuropathy Endocrine/Autoimmune: reports: None GI: reports: GERD, Colon polyps, Diverticulitis (s/p expl lap in 2018 with washout but no resection), Other : reports: Chronic bladder infection HEENT: reports: None Psych: reports: None Musculoskeletal: reports: Scoliosis, Chronic back pain, Other (hx bulbar polio) Derm: reports: None MRSA Hx?: No - Past Surgical History General: reports: Appendectomy, Bowel surgery (exp lap with washout for diverticulitis in 2018) /[employer]: reports: Hysterectomy - Family & Social History Family History Comment/Other: She reports her mother had a mitral valve disorder. She reports no other family history. Social History Notes: She has lived on [facility] for less than one year. She previously lived in [place], [place]. She retired about 20 years ago. 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 She reports no alcohol or smoking. - Substance History Use: Uses substance without health or social issues: NONE Meds/Allgy - Home Medications Home Medications: Ambulatory Orders Medication Instructions Recorded Confirmed Aspirin Chewable [[place] 81 mg PO DAILY 04/14/19 04/21/19 Aspirin] Calcium Carb/Vitamin D3/Vit K1 1 cap PO DAILY 04/14/19 04/21/19 [Viactiv 650 mg-12.5 Mcg Chew] Meloxicam [Qmiiz Odt] 7.5 mg PO DAILY 04/14/19 04/21/19 [place]-3/Dha/Epa/Fish Oil [Fish Oil 1 cap PO DAILY 04/14/19 04/21/19 1,000 mg Softgel] Omeprazole 40 mg PO DAILY 04/14/19 04/21/19 Vancomycin [Vancocin] 125 mg PO QID 8 Days #24 capsule 04/17/19 04/21/19 - Allergies Allergies/Adverse Reactions: Allergies Allergy/AdvReac Type Severity Reaction Status Date / Time epinephrine Allergy Unknown Verified 04/20/19 20:17 erythromycin base Allergy Rash Verified 04/20/19 20:17 indomethacin Allergy Unknown Verified 04/20/19 20:17 Latex, Natural Rubber Allergy Rash Verified 04/20/19 20:17 Sulfa (Sulfonamide Allergy Dizziness Verified 04/20/19 20:17 Antibiotics) Review of Systems - Constitutional Constitutional: reports: Weight gain (fluid retention over past week or so per pt) - Gastrointestinal Gastrointestinal: reports: Diarrhea, Change in bowel habits, Reflux/heartburn. denies: Abdominal pain, Abdominal distention, Rectal bleeding, Black stools, Bloody stools, Nausea, Vomiting, Coffee grounds emesis - Genitourinary Genitourinary: denies: Dysuria, Frequency - Hematologic/Lymphatic Hematologic/Lymphatic: denies: Bleeding tendencies - All Other Systems All Other Systems: reports: Reviewed and negative (or covered in HPI/PMH) Exam - Vital Signs Reviewed Vital Signs: Yes Vital Signs: Vital Signs x48h Temp Pulse Resp BP Pulse Ox 04/23/19 07:46 36.7 C 76 16 123/68 98 - Physical Exam General Appearance: positive: No acute distress, Alert Eyes Bilateral: positive: Conjunctivae nml, No scleral icterus ENT: positive: ENT inspection nml, Pharynx nml, No signs of dehydration Neck: positive: No JVD. negative: Lymphadenopathy (R), Lymphadenopathy (L) Respiratory: positive: Chest non-tender, No respiratory distress, Breath sounds nml Cardiovascular: positive: Regular rate & rhythm, No murmur, No gallop Abdomen: positive: Non-tender, No organomegaly, Nml bowel sounds, No distention, Other (healing surgical and laparoscopy scars). negative: Guarding, Rebound, Hepatomegaly, Splenomegaly, Mass Skin: positive: Color nml, No rash, Warm, Dry. negative: Cyanosis Extremities: positive: Pedal edema (left greater than right). negative: Calf tenderness Neurologic/Psychiatric: positive: Oriented x3 Conclusion and Plan - Lab Results Microbiology Results 04/20/19 23:05 Urine,Clean Catch Urine Culture - Final Escherichia Coli Laboratory Results 04/23/19 05:29: Sodium 142, Potassium 3.0 L, Chloride 111, Carbon Dioxide 23, Anion Gap 8.0, BUN 5 L, Creatinine 0.5, Estimated GFR (MDRD) 121, Glucose 90, Calcium 7.6 L, Phosphorus 3.2, Magnesium 1.7 04/23/19 05:29: WBC 6.1, RBC 2.66 L, Hgb 8.2 L, Hct 27.0 L, MCV 101.5 H, MCH 30.8, MCHC 30.4 L, RDW 17.2 H, Plt Count 283, MPV 9.5, Neut # (Auto) Not Reportable, Lymph # (Auto) Not Reportable, [place] # (Auto) Not Reportable, Eos # (Auto) Not Reportable, Baso # (Auto) Not Reportable, Absolute Nucleated RBC Not Reportable, Total Counted 100, Band Neuts % (Manual) 0, Abnorm Lymph % (Manual) 0, Metamyelocytes % 2 H, Myelocytes % 7 H, Nucleated RBC % Not Reportable, Neutrophils # (Manual) 5.1, Lymphocytes # (Manual) 0.4 L, Monocytes # (Manual) 0.1, Eosinophils # (Manual) 0.0, Basophils # (Manual) 0.0, Differential Comment MANUAL DIFFERENTIAL, WBC Morphology NORMAL APPEARANCE, Platelet Estimate NORMAL (130-450,000), Platelet Morphology NORMAL APPEARANCE, RBC Morph Micro Appear NORMAL APPEARANCE 04/22/19 05:50: Sodium 143, Potassium 3.5, Chloride 114 H, Carbon Dioxide 22, Anion Gap 7.0, BUN 7, Creatinine 0.4, Estimated GFR (MDRD) 156, Glucose 95, Calcium 7.5 L, Phosphorus 2.9, Magnesium 1.9 04/22/19 05:50: WBC 5.0, RBC 2.62 L, Hgb 8.3 L, Hct 26.8 L, MCV 102.3 H, MCH 31.7 H, MCHC 31.0 L, RDW 17.1 H, Plt Count 274, MPV 9.7, Neut # (Auto) Not Reportable, Lymph # (Auto) Not Reportable, [place] # (Auto) Not Reportable, Eos # (Auto) Not Reportable, Baso # (Auto) Not Reportable, Absolute Nucleated RBC Not Reportable, Total Counted 100, Band Neuts % (Manual) 2, Abnorm Lymph % (Manual) 0, Myelocytes % 5 H, Nucleated RBC % Not Reportable, Neutrophils # (Manual) 3.5, Lymphocytes # (Manual) 1.0 L, Monocytes # (Manual) 0.2, Eosinophils # (Manual) 0.1, Basophils # (Manual) 0.1, Differential Comment MANUAL DIFFERENTIAL, WBC Morphology NORMAL APPEARANCE, Platelet Estimate NORMAL (130-450,000), Platelet Morphology NORMAL APPEARANCE, RBC Morph Micro Appear 1+ POLYCHROMASIA 04/21/19 14:50: Urine Color YELLOW, Urine Clarity HAZY, Urine pH 5.5, Ur Specific [place] 1.020, Urine Protein NEGATIVE, Urine Glucose (UA) NEGATIVE, Urine Ketones 40 H, Urine Occult Blood NEGATIVE, Urine Nitrite POSITIVE H, Urine Bilirubin NEGATIVE, Urine Urobilinogen 0.2 (NORMAL), Ur Leukocyte Esterase SMALL H, Urine RBC 0-5, Urine WBC >25 H, Ur Squamous Epith Cells RARE Squamous, Urine Bacteria Few, Urine Culture Comments INDICATED - Diagnostic Imaging Results Diagnostic Imaging Results: positive: Final report reviewed, Read independently Diagnostic Imaging Results Comments: see HPI - Diagnosis Diagnosis: C. Difficile colitis, severe, now starting to improve with metronidazole and vancomycin therapy. No evidence of colon ileus or toxic megacolon or acute abdomen at present. Concurrent PPI therapy and antbiotic therapy for UTI may be exacerbating the condition and making treatment more difficult and likely to recur. - Plan Plan: Rec: d/c PPI therapy, switch to H2 dolly therapy for GERD; d/c cetriaxone; advance to low residue diet as [place], ow continue present therapy. Will follow. Thanks,
--- NOTE | 2019-04-23 12:37 | PROVIDER PROGRESS NOTE ---
Assessment/Plan - Problem List (1) Pancolitis Assessment/Plan: Improving, no pain, tolerating advancing diet Cpntinue po Vanco plus Flagyl] Gen surgery consult was still pending, I asked Dr Colmenares to see her officially today (2) C. difficile colitis Assessment/Plan: As above. Contact precautions will stop 48 hours after diarrhea ceases (3) E. coli UTI (urinary tract infection) Assessment/Plan: Today is third day of iv antibx (1 day Cipro, 2 days Ceftriaxone) and her dysuria has resolved, will stop after today's dose (4) Chronic deep vein thrombosis (DVT) of femoral vein of left lower extremity Assessment/Plan: Old (5) Hypokalemia Assessment/Plan: Losses must be due to diarrhea Replace Follow BMP daily (6) Anemia Assessment/Plan: Stable This was noted post-op, may be partly from surgery recently (7) N&V (nausea and vomiting) Assessment/Plan: Resolved (8) Dysphagia as late effect of cerebrovascular disease Assessment/Plan: She had bulbar polio at age 7, hard to swallow and needs a brace on L leg. Meds need to be crushed and diet needs to be soft - Current Meds Current Meds: Current Medications Generic Name Dose Route Start Last Admin Trade Name Freq PRN Reason Stop Dose Admin Cholecalciferol 2,000 unit 04/21/19 16:00 04/23/19 08:38 Vitamin D3 PO 2,000 unit DAILY JOSÉ MIGUEL Administration Heparin Sodium (Porcine) 5,000 unit 04/21/19 09:00 04/23/19 08:58 SUBQ 5,000 unit BID JOSÉ MIGUEL Administration Metronidazole 500 mg in 100 mls @ 100 mls/hr 04/21/19 02:00 04/23/19 11:40 Flagyl 500 Mg/100 Ml IV Infused Q8H JOSÉ MIGUEL Infusion Ondansetron HCl 4 mg 04/21/19 01:22 04/22/19 12:21 Zofran Inj IVP 4 mg Q6HR PRN Administration Nausea / Vomiting Saccharomyces Boulardii 500 mg 04/21/19 12:00 04/23/19 08:37 Florastor PO 500 mg BIDWM JOSÉ MIGUEL Administration Sodium Chloride 10 ml 04/21/19 01:22 04/23/19 06:57 Normal Saline Flush 0.9% IVP 10 ml PRN PRN Administration NEEDED PER PROVIDER ORDERS Sodium Chloride 10 ml 04/21/19 09:00 04/23/19 08:39 Normal Saline Flush 0.9% IVP 10 ml 0100,0900,1700 JOSÉ MIGUEL Administration Vancomycin HCl 125 mg 04/21/19 09:00 04/23/19 08:38 Vancocin PO 125 mg QID JOSÉ MIGUEL Administration - Lab Result Fish Bone Diagrams: 04/23/19 05:29 04/23/19 05:29 - Additional Planning My Orders: My Active Orders 04/22/19 14:29 Loperamide [Imodium] 2 mg PO QID PRN 04/22/19 14:31 Telemetry-Discontinue [RC] .ONCE 04/22/19 15:00 Sodium Chloride 0.9% [Normal Saline 0.9%] 1,000 ml IV TKO 04/23/19 Lunch DIET [Soft (Low Fiber) Diet] [DIET] Subjective - Subjective Patient Reports: Feeling Better, Other (Diarrhea decreased to 4/hr) Nursing Reports: Other (She told her RN she cannot be on Heparin due to some skin condition, The reason she needs pills crushed is due to polio and trouble swallowing. She is overwhelmed and sad.) Objective Vital Signs: Vital Signs - 24 hr 04/22/19 04/22/19 04/22/19 13:05 15:40 23:42 Temperature 36.7 C 36.9 C 36.6 C Heart Rate [ 101 H 84 91 Brachial] Respiratory 20 18 18 Rate Blood Pressure 135/62 H 127/71 126/65 [Right Brachial artery] O2 Saturation 98 99 95 04/23/19 07:46 Temperature 36.7 C Heart Rate [ 76 Brachial] Respiratory 16 Rate Blood Pressure 123/68 [Right Brachial artery] O2 Saturation 98 Oxygen O2 Source Room air I&O (Last 24 Hrs): Intake and Output Totals x24h 04/21/19 04/22/19 04/23/19 23:59 23:59 23:59 Intake Total 1805 2305 420 Output Total 200 Balance 1605 2305 420 General: Alert, Oriented x3 HEENT: Mucous membr. moist/pink Neck: Supple Neuro: Non Focal, Other (L leg in brace, both legs have muscle wasting) Cardiovascular: Regular rate Respiratory: No respiratory distress Abdomen: Soft Extremities: No edema - Results Results: Laboratory Results WBC 6.1 x10^3/uL (4.8-10.8) 04/23/19 05:29 RBC 2.66 10^6/uL (4.20-5.40) L 04/23/19 05:29 Hgb 8.2 g/dL (12.0-16.0) L 04/23/19 05:29 Hct 27.0 % (37.0-47.0) L 04/23/19 05:29 MCV 101.5 fL (81.0-99.0) H 04/23/19 05:29 MCH 30.8 pg (27.0-31.0) 04/23/19 05:29 MCHC 30.4 g/dL (32.0-36.0) L 04/23/19 05:29 RDW 17.2 % (12.0-15.0) H 04/23/19 05:29 Plt Count 283 10^3/uL (130-450) 04/23/19 05:29 MPV 9.5 fL (7.9-10.8) 04/23/19 05:29 Neut # (Auto) Not Reportable 04/23/19 05:29 Lymph # (Auto) Not Reportable 04/23/19 05:29 [place] # (Auto) Not Reportable 04/23/19 05:29 Eos # (Auto) Not Reportable 04/23/19 05:29 Baso # (Auto) Not Reportable 04/23/19 05:29 Absolute Nucleated RBC Not Reportable 04/23/19 05:29 Total Counted 100 04/23/19 05:29 Band Neuts % (Manual) 0 % (0-10) 04/23/19 05:29 Abnorm Lymph % (Manual) 0 % 04/23/19 05:29 Metamyelocytes % 2 % (-0) H 04/23/19 05:29 Myelocytes % 7 % (-0) H 04/23/19 05:29 Nucleated RBC % Not Reportable 04/23/19 05:29 Neutrophils # (Manual) 5.1 10^3/uL (1.5-6.6) 04/23/19 05:29 Lymphocytes # (Manual) 0.4 10^3/uL (1.5-3.5) L 04/23/19 05:29 Monocytes # (Manual) 0.1 10^3/uL (0.0-1.0) 04/23/19 05:29 Eosinophils # (Manual) 0.0 10^3/uL (0-0.7) 04/23/19 05:29 Basophils # (Manual) 0.0 10^3/uL (0-0.1) 04/23/19 05:29 Nucleated RBCs 1 % 04/20/19 22:34 Differential Comment MANUAL DIFFERENTIAL 04/23/19 05:29 Manual Slide Review Indicated 04/20/19 22:34 WBC Morphology NORMAL APPEARANCE (NORMAL) 04/23/19 05:29 Platelet Estimate NORMAL (130-450,000) (NORMAL) 04/23/19 05:29 Platelet Morphology NORMAL APPEARANCE (NORMAL) 04/23/19 05:29 RBC Morph Micro Appear 1+ ANISOCYTOSIS (NORMAL) 1+ POLYCHROMASIA (NORMAL) 04/22/19 05:50 RBC Morph Micro Appear NORMAL APPEARANCE (NORMAL) 04/23/19 05:29 PT 12.5 secs (9.9-12.6) 04/20/19 22:34 INR 1.1 (0.8-1.2) 04/20/19 22:34 Sodium 142 mmol/L (135-145) 04/23/19 05:29 Potassium 3.0 mmol/L (3.5-5.0) L 04/23/19 05:29 Chloride 111 mmol/L (101-111) 04/23/19 05:29 Carbon Dioxide 23 mmol/L (21-32) 04/23/19 05:29 Anion Gap 8.0 (6-13) 04/23/19 05:29 BUN 5 mg/dL (6-20) L 04/23/19 05:29 Creatinine 0.5 mg/dL (0.4-1.0) 04/23/19 05:29 Estimated GFR (MDRD) 121 (>89) 04/23/19 05:29 Glucose 90 mg/dL (70-100) 04/23/19 05:29 Lactic Acid 1.0 mmol/L (0.5-2.2) 04/20/19 22:34 Calcium 7.6 mg/dL (8.5-10.3) L 04/23/19 05:29 Phosphorus 3.2 mg/dL (2.5-4.6) 04/23/19 05:29 Magnesium 1.7 mg/dL (1.7-2.8) 04/23/19 05:29 Total Bilirubin 1.1 mg/dL (0.2-1.0) H 04/20/19 22:34 AST 51 IU/L (10-42) H 04/20/19 22:34 ALT 51 IU/L (10-60) 04/20/19 22:34 Alkaline Phosphatase 50 IU/L (42-121) 04/20/19 22:34 Troponin I High Sens 4.8 ng/L (2.3-14.8) 04/20/19 22:34 B-Natriuretic Peptide 50 pg/mL (5-100) 04/20/19 22:34 Total Protein 5.6 g/dL (6.7-8.2) L 04/20/19 22:34 Albumin 3.0 g/dL (3.2-5.5) L 04/20/19 22:34 Globulin 2.6 g/dL (2.1-4.2) 04/20/19 22:34 Albumin/Globulin Ratio 1.2 (1.0-2.2) 04/20/19 22:34 Lipase 34 U/L (22-51) 04/20/19 22:34 TSH 2.86 uIU/mL (0.34-5.60) 04/20/19 22:34 Urine Color YELLOW 04/21/19 14:50 Urine Clarity HAZY (CLEAR) 04/21/19 14:50 Urine pH 5.5 PH (5.0-7.5) 04/21/19 14:50 Ur Specific [place] 1.020 (1.002-1.030) 04/21/19 14:50 Urine Protein NEGATIVE mg/dL (NEGATIVE) 04/21/19 14:50 Urine Glucose (UA) NEGATIVE mg/dL (NEGATIVE) 04/21/19 14:50 Urine Ketones 40 mg/dL (NEGATIVE) H 04/21/19 14:50 Urine Occult Blood NEGATIVE (NEGATIVE) 04/21/19 14:50 Urine Nitrite POSITIVE (NEGATIVE) H 04/21/19 14:50 Urine Bilirubin NEGATIVE (NEGATIVE) 04/21/19 14:50 Urine Urobilinogen 0.2 (NORMAL) E.U./dL (NORMAL) 04/21/19 14:50 Ur Leukocyte Esterase SMALL (NEGATIVE) H 04/21/19 14:50 Urine RBC 0-5 /HPF (0-5) 04/21/19 14:50 Urine WBC >25 /HPF (0-5) H 04/21/19 14:50 Ur Squamous Epith Cells RARE Squamous (<= Few) 04/21/19 14:50 Urine Crystals 26-50 Ca Oxalate /LPF 04/20/19 23:05 Urine Bacteria Few /HPF (None Seen) 04/21/19 14:50 Ur Microscopic Review INDICATED 04/20/19 23:05 Urine Culture Comments INDICATED 04/21/19 14:50
[2019-04-23] MEDS: FAMOTIDINE 20 MG TABLET PO SCH (20:30)
[2019-04-24] MEDS: SODIUM CHLORIDE FLUSH 0.9% 10 ML SYRINGE IVP PRN ×2 (02:13→03:33)
[2019-04-24] MEDS: metroNIDAZOLE 500 MG/100 ML 500 MG/100 ML BAG IV SCH ×3 (02:13→18:26)
[2019-04-24] MEDS: ONDANSETRON 4 MG/2 ML VIAL IVP PRN (04:35)
[2019-04-24] MEDS: SODIUM CHLORIDE FLUSH 0.9% 10 ML SYRINGE IVP SCH ×2 (04:36→17:06)
[2019-04-24 05:57] LABS: BASOPHILS % (AUTO) 0.6 %; EOSINOPHILS # (AUTO) 0.2 10^3/uL (0.0-0.7); EOSINOPHILS % (AUTO) 3.3 %; HGB - HEMOGLOBIN 8.6 g/dL (12.0-16.0); LYMPHOCYTES # (AUTO) 0.6 10^3/uL (1.5-3.5); LYMPHOCYTES % (AUTO) 11.4 %; MEAN CORPUSCULAR HEMOGLOBIN 30.7 pg (27.0-31.0); MEAN CORPUSCULAR HGB CONC 30.2 g/dL (32.0-36.0); MEAN CORPUSCULAR VOLUME 101.8 fL (81.0-99.0); MEAN PLATELET VOLUME 9.6 fL (7.9-10.8); MONOCYTES # (AUTO) 0.2 10^3/uL (0.0-1.0); MONOCYTES % (AUTO) 4.5 %; NEUTROPHILS # (AUTO) 3.8 10^3/uL (1.5-6.6); NEUTROPHILS % (AUTO) 74.5 %; PLT - PLATELET COUNT 298 10^3/uL (130-450); RED CELL DISTRIBUTION WIDTH 17.1 % (12.0-15.0); WHITE BLOOD COUNT 5.1 x10^3/uL (4.8-10.8)
[2019-04-24 06:11] LABS: CALCIUM 7.7 mg/dL (8.5-10.3); CREATININE 0.5 mg/dL (0.4-1.0); MAGNESIUM 1.7 mg/dL (1.7-2.8); PHOSPHORUS 2.5 mg/dL (2.5-4.6)
[2019-04-24] MEDS: CHOLECALCIFEROL 1,000 UNIT TABLET PO SCH (08:26)
[2019-04-24] MEDS: VANCOMYCIN 125 MG CAPSULE PO SCH ×4 (08:26→21:23)
[2019-04-24] MEDS: POTASSIUM CHLOR 10 MEQ/100 ML 10 MEQ/100 ML BAG IV SCH ×4 (08:26→14:51)
[2019-04-24] MEDS: SACCHAROMYCES BOULARDII 250 MG CAPSULE PO SCH ×2 (08:26→16:57)
[2019-04-24] MEDS: FAMOTIDINE 20 MG TABLET PO SCH ×2 (08:26→21:23)
[2019-04-24] MEDS: HEPARIN 5,000 UNIT/ML VIAL SUBQ SCH ×2 (08:47→21:23)
--- NOTE | 2019-04-24 08:52 | PROVIDER PROGRESS NOTE ---
Subjective - General Admit Date: 04/21/19 Procedure Date: 04/14/19 Post Op Days: 10 - Review of Systems Wound/Incisions: positive: Healing well General: positive: Other (Feeling better. No further abd pain. Having more "normal " diarrhea.) Gastrointestinal: positive: Diarrhea All Other Systems: positive: Reviewed and negative (or covered in HPI/PMH) Objective - Patient Data Reviewed Vital Signs: Yes Vital Signs: Vital Signs x48h Temp Pulse Resp BP Pulse Ox 04/24/19 08:01 36.6 C 75 16 126/60 98 Intake & Output: Intake and Output Totals x24h 04/22/19 04/23/19 04/24/19 23:59 23:59 23:59 Intake Total 2305 1110 300 Balance 2305 1110 300 - Lab Results Lab Results: 04/24/19 05:45 04/24/19 05:45 Other Lab Results: Lab Results x24hrs 04/24/19 04/24/19 Range/Units 05:45 05:45 WBC 5.1 (4.8-10.8) x10^3/uL RBC 2.80 L (4.20-5.40) 10^6/uL Hgb 8.6 L (12.0-16.0) g/dL Hct 28.5 L (37.0-47.0) % MCV 101.8 H (81.0-99.0) fL MCH 30.7 (27.0-31.0) pg MCHC 30.2 L (32.0-36.0) g/dL RDW 17.1 H (12.0-15.0) % Plt Count 298 (130-450) 10^3/uL MPV 9.6 (7.9-10.8) fL Neut # (Auto) 3.8 (1.5-6.6) 10^3/uL Lymph # (Auto) 0.6 L (1.5-3.5) 10^3/uL [place] # (Auto) 0.2 (0.0-1.0) 10^3/uL Eos # (Auto) 0.2 (0.0-0.7) 10^3/uL Baso # (Auto) 0.0 (0.0-0.1) 10^3/uL Absolute Nucleated RBC 0.00 x10^3/uL Nucleated RBC % 0.0 /100WBC Sodium 142 (135-145) mmol/L Potassium 3.3 L (3.5-5.0) mmol/L Chloride 110 (101-111) mmol/L Carbon Dioxide 23 (21-32) mmol/L Anion Gap 9.0 (6-13) BUN 5 L (6-20) mg/dL Creatinine 0.5 (0.4-1.0) mg/dL Estimated GFR (MDRD) 121 (>89) Glucose 100 (70-100) mg/dL Calcium 7.7 L (8.5-10.3) mg/dL Phosphorus 2.5 (2.5-4.6) mg/dL Magnesium 1.7 (1.7-2.8) mg/dL - Current Medications Current Medications: Current Medications Generic Name Dose Route Start Last Admin Trade Name Freq PRN Reason Stop Dose Admin Cholecalciferol 2,000 unit 04/21/19 16:00 04/24/19 08:26 Vitamin D3 PO 2,000 unit DAILY JOSÉ MIGUEL Administration Famotidine 20 mg 04/23/19 21:00 04/24/19 08:26 Pepcid PO 20 mg BID JOSÉ MIGUEL Administration Heparin Sodium (Porcine) 5,000 unit 04/21/19 09:00 04/24/19 08:47 SUBQ 5,000 unit BID JOSÉ MIGUEL Administration Metronidazole 500 mg in 100 mls @ 100 mls/hr 04/21/19 02:00 04/24/19 03:13 Flagyl 500 Mg/100 Ml IV Infused Q8H JOSÉ MIGUEL Infusion Potassium Chloride 10 meq in 100 mls @ 100 mls/hr 04/24/19 07:00 04/24/19 08:26 Potassium Chloride IV 04/24/19 10:59 100 mls/hr Q1H JOSÉ MIGUEL Administration Loperamide HCl 2 mg 04/22/19 14:29 04/24/19 08:41 Imodium PO 2 mg QID PRN Administration Diarrhea Ondansetron HCl 4 mg 04/21/19 01:22 04/24/19 04:35 Zofran Inj IVP 4 mg Q6HR PRN Administration Nausea / Vomiting Saccharomyces Boulardii 500 mg 04/21/19 12:00 04/24/19 08:26 Florastor PO 500 mg BIDWM JOSÉ MIGUEL Administration Sodium Chloride 10 ml 04/21/19 01:22 04/24/19 03:33 Normal Saline Flush 0.9% IVP 10 ml PRN PRN Administration NEEDED PER PROVIDER ORDERS Sodium Chloride 10 ml 04/21/19 09:00 04/24/19 04:36 Normal Saline Flush 0.9% IVP 10 ml 0100,0900,1700 JOSÉ MIGUEL Administration Vancomycin HCl 125 mg 04/21/19 09:00 04/24/19 08:26 Vancocin PO 125 mg QID JOSÉ MIGUEL Administration - Physical Exam Wound/Incisions: positive: Healing well General Appearance: positive: No acute distress, Alert Respiratory: positive: Chest non-tender, No respiratory distress, Breath sounds nml Cardiovascular: positive: Regular rate & rhythm Abdomen: positive: Non-tender ABX Reporting Has patient been on IV antibiotics over the past 48 hours?: Yes Impression/Plan - Problem List Problem List: Continue current tx as she is improving.
--- NOTE | 2019-04-24 11:29 | PROVIDER PROGRESS NOTE ---
Assessment/Plan - Problem List (1) Pancolitis Assessment/Plan: Overall slight improvement which started in the last 48 hours. Surgery is following along and advises no Dch until diarrhea stops. (2) C. difficile colitis Assessment/Plan: Continue po Vanco and iv Flagyl Continue symptomatic management of diarrhea Continue iv fluids for replacement of volume and electrolytes Follow BMP and Mg daily (3) E. coli UTI (urinary tract infection) Assessment/Plan: Dysuria resolved and a short course of 3 days of iv antibiotics were given. (4) Hypokalemia Assessment/Plan: She was given po replacement the last 2 days, and due to her dysphagia from polio, she did not tolerate it and has asked for iv runner, Give iv K x4 today. Will put K in her hydration fluid. 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 Her diet needs to be soft or even pureed, which she is ordered to get now, was advanced from clears. 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 There are no residual sx. (9) N&V (nausea and vomiting) Assessment/Plan: Resolved - Current Meds Current Meds: Current Medications Generic Name Dose Route Start Last Admin Trade Name Freq PRN Reason Stop Dose Admin Cholecalciferol 2,000 unit 04/21/19 16:00 04/24/19 08:26 Vitamin D3 PO 2,000 unit DAILY JOSÉ MIGUEL Administration Famotidine 20 mg 04/23/19 21:00 04/24/19 08:26 Pepcid PO 20 mg BID JOSÉ MIGUEL Administration Heparin Sodium (Porcine) 5,000 unit 04/21/19 09:00 04/24/19 08:47 SUBQ 5,000 unit BID JOSÉ MIGUEL Administration Metronidazole 500 mg in 100 mls @ 100 mls/hr 04/21/19 02:00 04/24/19 10:22 Flagyl 500 Mg/100 Ml IV 100 mls/hr Q8H JOSÉ MIGUEL Administration Sodium Chloride 1,000 mls @ 0 mls/hr 04/22/19 15:00 04/24/19 10:13 Normal Saline 0.9% IV 30 mls/hr .Q0M JOSÉ MIGUEL Administration TKO Loperamide HCl 2 mg 04/22/19 14:29 04/24/19 08:41 Imodium PO 2 mg QID PRN Administration Diarrhea Ondansetron HCl 4 mg 04/21/19 01:22 04/24/19 04:35 Zofran Inj IVP 4 mg Q6HR PRN Administration Nausea / Vomiting Saccharomyces Boulardii 500 mg 04/21/19 12:00 04/24/19 08:26 Florastor PO 500 mg BIDWM JOSÉ MIGUEL Administration Sodium Chloride 10 ml 04/21/19 01:22 04/24/19 03:33 Normal Saline Flush 0.9% IVP 10 ml PRN PRN Administration NEEDED PER PROVIDER ORDERS Sodium Chloride 10 ml 04/21/19 09:00 04/24/19 04:36 Normal Saline Flush 0.9% IVP 10 ml 0100,0900,1700 JOSÉ MIGUEL Administration Vancomycin HCl 125 mg 04/21/19 09:00 04/24/19 08:26 Vancocin PO 125 mg QID JOSÉ MIGUEL Administration - Lab Result Fish Bone Diagrams: 04/24/19 05:45 04/24/19 05:45 - Additional Planning My Orders: My Active Orders 04/23/19 Lunch DIET [Soft (Low Fiber) Diet] [DIET] Subjective - Subjective Patient Reports: Feeling Better, Resting Comfortably, Other (No more abd pain and no N/V) Nursing Reports: Other (Still has diarrhea, small volume and less frequent) Objective Vital Signs: Vital Signs - 24 hr 04/23/19 04/23/19 04/24/19 15:42 23:42 08:01 Temperature 36.3 C L 36.9 C 36.6 C Heart Rate [ 88 76 75 Brachial] Respiratory 14 18 16 Rate Blood Pressure 133/74 H 121/59 L 126/60 [Right Brachial artery] O2 Saturation 100 97 98 Oxygen O2 Source Room air I&O (Last 24 Hrs): Intake and Output Totals x24h 04/22/19 04/23/19 04/24/19 23:59 23:59 23:59 Intake Total 2305 1110 400.000 Balance 2305 1110 400.000 General: Alert, Oriented x3 HEENT: Mucous membr. moist/pink Neck: Supple Neuro: Other (R leg weakness from hx polio, needs a brace) Cardiovascular: Regular rate, No murmurs Respiratory: No respiratory distress Abdomen: Normal bowel sounds, Soft, No tenderness Extremities: No edema - Results Results: Laboratory Results WBC 5.1 x10^3/uL (4.8-10.8) 04/24/19 05:45 RBC 2.80 10^6/uL (4.20-5.40) L 04/24/19 05:45 Hgb 8.6 g/dL (12.0-16.0) L 04/24/19 05:45 Hct 28.5 % (37.0-47.0) L 04/24/19 05:45 MCV 101.8 fL (81.0-99.0) H 04/24/19 05:45 MCH 30.7 pg (27.0-31.0) 04/24/19 05:45 MCHC 30.2 g/dL (32.0-36.0) L 04/24/19 05:45 RDW 17.1 % (12.0-15.0) H 04/24/19 05:45 Plt Count 298 10^3/uL (130-450) 04/24/19 05:45 MPV 9.6 fL (7.9-10.8) 04/24/19 05:45 Neut # (Auto) 3.8 10^3/uL (1.5-6.6) 04/24/19 05:45 Lymph # (Auto) 0.6 10^3/uL (1.5-3.5) L 04/24/19 05:45 [place] # (Auto) 0.2 10^3/uL (0.0-1.0) 04/24/19 05:45 Eos # (Auto) 0.2 10^3/uL (0.0-0.7) 04/24/19 05:45 Baso # (Auto) 0.0 10^3/uL (0.0-0.1) 04/24/19 05:45 Absolute Nucleated RBC 0.00 x10^3/uL 04/24/19 05:45 Total Counted 100 04/23/19 05:29 Band Neuts % (Manual) 0 % (0-10) 04/23/19 05:29 Abnorm Lymph % (Manual) 0 % 04/23/19 05:29 Metamyelocytes % 2 % (-0) H 04/23/19 05:29 Myelocytes % 7 % (-0) H 04/23/19 05:29 Nucleated RBC % 0.0 /100WBC 04/24/19 05:45 Neutrophils # (Manual) 5.1 10^3/uL (1.5-6.6) 04/23/19 05:29 Lymphocytes # (Manual) 0.4 10^3/uL (1.5-3.5) L 04/23/19 05:29 Monocytes # (Manual) 0.1 10^3/uL (0.0-1.0) 04/23/19 05:29 Eosinophils # (Manual) 0.0 10^3/uL (0-0.7) 04/23/19 05:29 Basophils # (Manual) 0.0 10^3/uL (0-0.1) 04/23/19 05:29 Nucleated RBCs 1 % 04/20/19 22:34 Differential Comment MANUAL DIFFERENTIAL 04/23/19 05:29 Manual Slide Review Indicated 04/20/19 22:34 WBC Morphology NORMAL APPEARANCE (NORMAL) 04/23/19 05:29 Platelet Estimate NORMAL (130-450,000) (NORMAL) 04/23/19 05:29 Platelet Morphology NORMAL APPEARANCE (NORMAL) 04/23/19 05:29 RBC Morph Micro Appear 1+ ANISOCYTOSIS (NORMAL) 1+ POLYCHROMASIA (NORMAL) 04/22/19 05:50 RBC Morph Micro Appear NORMAL APPEARANCE (NORMAL) 04/23/19 05:29 PT 12.5 secs (9.9-12.6) 04/20/19 22:34 INR 1.1 (0.8-1.2) 04/20/19 22:34 Sodium 142 mmol/L (135-145) 04/24/19 05:45 Potassium 3.3 mmol/L (3.5-5.0) L 04/24/19 05:45 Chloride 110 mmol/L (101-111) 04/24/19 05:45 Carbon Dioxide 23 mmol/L (21-32) 04/24/19 05:45 Anion Gap 9.0 (6-13) 04/24/19 05:45 BUN 5 mg/dL (6-20) L 04/24/19 05:45 Creatinine 0.5 mg/dL (0.4-1.0) 04/24/19 05:45 Estimated GFR (MDRD) 121 (>89) 04/24/19 05:45 Glucose 100 mg/dL (70-100) 04/24/19 05:45 Lactic Acid 1.0 mmol/L (0.5-2.2) 04/20/19 22:34 Calcium 7.7 mg/dL (8.5-10.3) L 04/24/19 05:45 Phosphorus 2.5 mg/dL (2.5-4.6) 04/24/19 05:45 Magnesium 1.7 mg/dL (1.7-2.8) 04/24/19 05:45 Total Bilirubin 1.1 mg/dL (0.2-1.0) H 04/20/19 22:34 AST 51 IU/L (10-42) H 04/20/19 22:34 ALT 51 IU/L (10-60) 04/20/19 22:34 Alkaline Phosphatase 50 IU/L (42-121) 04/20/19 22:34 Troponin I High Sens 4.8 ng/L (2.3-14.8) 04/20/19 22:34 B-Natriuretic Peptide 50 pg/mL (5-100) 04/20/19 22:34 Total Protein 5.6 g/dL (6.7-8.2) L 04/20/19 22:34 Albumin 3.0 g/dL (3.2-5.5) L 04/20/19 22:34 Globulin 2.6 g/dL (2.1-4.2) 04/20/19 22:34 Albumin/Globulin Ratio 1.2 (1.0-2.2) 04/20/19 22:34 Lipase 34 U/L (22-51) 04/20/19 22:34 TSH 2.86 uIU/mL (0.34-5.60) 04/20/19 22:34 Urine Color YELLOW 04/21/19 14:50 Urine Clarity HAZY (CLEAR) 04/21/19 14:50 Urine pH 5.5 PH (5.0-7.5) 04/21/19 14:50 Ur Specific [place] 1.020 (1.002-1.030) 04/21/19 14:50 Urine Protein NEGATIVE mg/dL (NEGATIVE) 04/21/19 14:50 Urine Glucose (UA) NEGATIVE mg/dL (NEGATIVE) 04/21/19 14:50 Urine Ketones 40 mg/dL (NEGATIVE) H 04/21/19 14:50 Urine Occult Blood NEGATIVE (NEGATIVE) 04/21/19 14:50 Urine Nitrite POSITIVE (NEGATIVE) H 04/21/19 14:50 Urine Bilirubin NEGATIVE (NEGATIVE) 04/21/19 14:50 Urine Urobilinogen 0.2 (NORMAL) E.U./dL (NORMAL) 04/21/19 14:50 Ur Leukocyte Esterase SMALL (NEGATIVE) H 04/21/19 14:50 Urine RBC 0-5 /HPF (0-5) 04/21/19 14:50 Urine WBC >25 /HPF (0-5) H 04/21/19 14:50 Ur Squamous Epith Cells RARE Squamous (<= Few) 04/21/19 14:50 Urine Crystals 26-50 Ca Oxalate /LPF 04/20/19 23:05 Urine Bacteria Few /HPF (None Seen) 04/21/19 14:50 Ur Microscopic Review INDICATED 04/20/19 23:05 Urine Culture Comments INDICATED 04/21/19 14:50
[2019-04-25] MEDS: SODIUM CHLORIDE FLUSH 0.9% 10 ML SYRINGE IVP SCH ×3 (02:21→17:46)
[2019-04-25] MEDS: metroNIDAZOLE 500 MG/100 ML 500 MG/100 ML BAG IV SCH ×3 (02:32→17:45)
[2019-04-25 07:43] LABS: BASOPHILS % (AUTO) 0.9 %; EOSINOPHILS # (AUTO) 0.1 10^3/uL (0.0-0.7); LYMPHOCYTES # (AUTO) 0.6 10^3/uL (1.5-3.5); MEAN CORPUSCULAR HEMOGLOBIN 30.6 pg (27.0-31.0); MEAN CORPUSCULAR HGB CONC 29.3 g/dL (32.0-36.0); MEAN CORPUSCULAR VOLUME 104.4 fL (81.0-99.0); MEAN PLATELET VOLUME 9.9 fL (7.9-10.8); MONOCYTES # (AUTO) 0.3 10^3/uL (0.0-1.0); MONOCYTES % (AUTO) 7.6 %; NEUTROPHILS % (AUTO) 69.5 %; PLT - PLATELET COUNT 291 10^3/uL (130-450); RED BLOOD COUNT 2.94 10^6/uL (4.20-5.40); RED CELL DISTRIBUTION WIDTH 17.2 % (12.0-15.0); WHITE BLOOD COUNT 4.4 x10^3/uL (4.8-10.8)
[2019-04-25 07:56] LABS: CALCIUM 7.5 mg/dL (8.5-10.3); CARBON DIOXIDE - CO2 22 mmol/L (21-32); CHLORIDE 109 mmol/L (101-111); CREATININE 0.3 mg/dL (0.4-1.0); GFR - MDRD 218 (>89); GLUCOSE 89 mg/dL (70-100); MAGNESIUM 1.7 mg/dL (1.7-2.8); SODIUM 141 mmol/L (135-145)
[2019-04-25 08:06] LABS: BUN - BLOOD UREA NITROGEN < 5 mg/dL (6-20)
[2019-04-25] MEDS: FAMOTIDINE 20 MG TABLET PO SCH ×2 (09:58→21:51)
[2019-04-25] MEDS: CHOLECALCIFEROL 1,000 UNIT TABLET PO SCH (09:58)
[2019-04-25] MEDS: SACCHAROMYCES BOULARDII 250 MG CAPSULE PO SCH ×2 (09:58→17:45)
[2019-04-25] MEDS: HEPARIN 5,000 UNIT/ML VIAL SUBQ SCH ×2 (09:59→21:51)
[2019-04-25] MEDS: VANCOMYCIN 125 MG CAPSULE PO SCH ×4 (09:59→21:51)
--- NOTE | 2019-04-25 15:28 | PROVIDER PROGRESS NOTE ---
Subjective - Prog Note Date Prog Note Date: 04/25/19 Prog Note Time: 15:30 - Subjective Pt reports feeling: Improved Subjective: She is up in her room, uses her braces and canes. Tolerating her diet. No abdominal pain. No fever. Stool is soft and formed. Last episode of mucus stool was yesterday. Current Medications - Current Medications Current Medications: Active Medications Cholecalciferol (Vitamin D3) 2,000 unit PO DAILY [facility] Last Admin: 04/25/19 09:58 Dose: 2,000 unit Famotidine (Pepcid) 20 mg PO BID [facility] Last Admin: 04/25/19 09:58 Dose: 20 mg Heparin Sodium (Porcine) () 5,000 unit SUBQ BID [facility] Last Admin: 04/25/19 09:59 Dose: Not Given Metronidazole (Flagyl 500 Mg/100 Ml) 500 mg in 100 mls @ 100 mls/hr IV Q8H [facility] Last Infusion: 04/25/19 03:33 Dose: Infused Sodium Chloride (Normal Saline 0.9%) 1,000 mls @ 0 mls/hr IV .Q0M [facility] Last Infusion: 04/25/19 10:16 Dose: Infused Loperamide HCl (Imodium) 2 mg PO QID PRN PRN Reason: Diarrhea Last Admin: 04/24/19 08:41 Dose: 2 mg Morphine Sulfate (Morphine (Carpuject)) 2 mg IVP Q2HR PRN PRN Reason: Pain 8 to 10 Ondansetron HCl (Zofran Inj) 4 mg IVP Q6HR PRN PRN Reason: Nausea / Vomiting Last Admin: 04/24/19 04:35 Dose: 4 mg Saccharomyces Boulardii (Florastor) 500 mg PO BIDWM [facility] Last Admin: 04/25/19 09:58 Dose: 500 mg Sodium Chloride (Normal Saline Flush 0.9%) 10 ml IVP PRN PRN PRN Reason: NEEDED PER PROVIDER ORDERS Last Admin: 04/24/19 03:33 Dose: 10 ml Sodium Chloride (Normal Saline Flush 0.9%) 10 ml IVP 0100,0900,1700 [facility] Last Admin: 04/25/19 09:59 Dose: Not Given Vancomycin HCl (Vancocin) 125 mg PO QID [facility] Last Admin: 04/25/19 13:07 Dose: 125 mg Aspirin Chewable [[place] Aspirin] 81 mg PO DAILY 04/14/19 Calcium Carb/Vitamin D3/Vit K1 [Viactiv 650 mg-12.5 Mcg Chew] 1 cap PO DAILY 04/14/19 Meloxicam [Qmiiz Odt] 7.5 mg PO DAILY 04/14/19 [place]-3/Dha/Epa/Fish Oil [Fish Oil 1,000 mg Softgel] 1 cap PO DAILY 04/14/19 Omeprazole 40 mg PO DAILY 04/14/19 Objective - Vital Signs/Intake & Output Reviewed Vital Signs: Yes Vital Signs: Vital Signs x48h Temp Pulse Resp BP Pulse Ox 04/25/19 07:46 36.8 C 72 18 128/64 98 Intake & Output: Intake & Output 04/22/19 04/23/19 04/24/19 04/25/19 23:59 23:59 23:59 23:59 Intake Total 2305 1110 3349.555 7497.667 Output Total 300 Balance 2305 1110 3188.625 5468.667 - Objective General Appearance: positive: No acute distress, Alert Eyes Bilateral: positive: PERRL ENT: positive: No signs of dehydration Neck: positive: No JVD Respiratory: positive: Chest non-tender. negative: Wheezes, Rales, Rhonchi Cardiovascular: positive: Regular rate & rhythm. negative: JVD present Abdomen: positive: Non-tender, No organomegaly, Nml bowel sounds, No distention Skin: positive: Warm, Dry Extremities: positive: No pedal edema Neurologic/Psychiatric: positive: Oriented x3, CN's nml (2-12), Other (using wrist canes, legs braces for lower extremity muscle dysfuction). negative: Motor nml (from polio), Sensation nml (from polio), Depressed mood/affect - Lab Results Fish Bones: 04/25/19 07:15 04/25/19 07:20 Other Labs: Lab Results x24hrs 04/25/19 04/25/19 Range/Units 07:20 07:15 WBC 4.4 L (4.8-10.8) x10^3/uL RBC 2.94 L (4.20-5.40) 10^6/uL Hgb 9.0 L (12.0-16.0) g/dL Hct 30.7 L (37.0-47.0) % MCV 104.4 H (81.0-99.0) fL MCH 30.6 (27.0-31.0) pg MCHC 29.3 L (32.0-36.0) g/dL RDW 17.2 H (12.0-15.0) % Plt Count 291 (130-450) 10^3/uL MPV 9.9 (7.9-10.8) fL Neut # (Auto) 3.0 (1.5-6.6) 10^3/uL Lymph # (Auto) 0.6 L (1.5-3.5) 10^3/uL [place] # (Auto) 0.3 (0.0-1.0) 10^3/uL Eos # (Auto) 0.1 (0.0-0.7) 10^3/uL Baso # (Auto) 0.0 (0.0-0.1) 10^3/uL Absolute Nucleated RBC 0.00 x10^3/uL Nucleated RBC % 0.0 /100WBC Sodium 141 (135-145) mmol/L Potassium 3.6 (3.5-5.0) mmol/L Chloride 109 (101-111) mmol/L Carbon Dioxide 22 (21-32) mmol/L Anion Gap 10.0 (6-13) BUN < 5 L (6-20) mg/dL Creatinine 0.3 L (0.4-1.0) mg/dL Estimated GFR (MDRD) 218 (>89) Glucose 89 (70-100) mg/dL Calcium 7.5 L (8.5-10.3) mg/dL Magnesium 1.7 (1.7-2.8) mg/dL ABX Reporting Has patient been on IV antibiotics over the past 48 hours?: Yes Assessment/Plan - Problem List (1) Pancolitis Impression: HIstory was that of being discharged a few days ago after being diagnosed with initially suspected appendicitis and underwent an appendectomy. PMH of diverticulitis at the end of last year and was hospitalized w sepsis and bowel resection for many weeks. She then had UTI after cytoscopy in November, December and February requiring abx. After the appendectomy, continued having abd pain and developed diarrhea. Ended up having C. difficile and was treated with oral vancomycin and discharged this past Alok, 04/17/19. She is taking the v ancomycin at home as prescribed. She reports her abdominal pain has improved but her diarrhea is becoming more severe and she noticed her heart rate was elevated today. She has been having nearly 4 bowel movements an hour. Stool is foul-smelling with no blood. There is urgency with each bowel movement and she wakes up in the middle the night to defecate. She reports no fevers, chills, nausea, vomiting. She denies chest pain or shortness of breath. She denies dysuria, urgency, frequency. She does note her legs have become more swollen since she was hospitalized and that she gained approximately 8 pounds. She underwent Dopplers of the lower extremities which showed no acute DVT but there was a possible small chronic nonocclusive DVT in the profunda femoral vein In the emergency department, she was afebrile, tachycardic in the 90s, normotensive. Labs were significant for white count of 8.7 and 7% bands. Her potassium was 2.5. Albumin was low at 3.0, Total bilirubin 1.1, AST 51. She underwent a CT of the abdomen and pelvis which revealed severe pancolitis suggestive of C. difficile. Given her worsening diarrhea, severe pain colitis on imaging, medicine was consulted for admission. I did speak with the patient once again regarding goals of care and she would like to be a DNR at this time. Overall improvement which started in the last 72 hours. She denies any abdomi nal pain. Is able to tolerate a diet. She is having soft stools. Mucus bowel movements stopped yesterday. Surgery is following along and advises no Dch until diarrhea stops. I anticipate discharge tomorrow (2) C. difficile colitis Assessment/Plan: Continue po Vanco and iv Flagyl and she will go home on po vancomycin. Continue symptomatic management of diarrhea Continue iv fluids for replacement of volume and electrolytes Follow BMP and Mg daily until dc. She was admitted 2 weeks ago for C. difficile colitis. Placed on appropriate antibiotics. Readmitted with recurrent abdominal pain, diarrhea. Plan: Discharge tomorrow Follow-up with her job estimator, Sebastian Rainey MD, at [facility] [phone], fax [phone]. I would like him to decide how long she is going to stay on antibiotics. As such I would like him to see her in the next 2 weeks. she states that it is very difficult to get into see him. I will make sure he gets a copy of this note so that his office staff can get her in within 2 weeks after discharge tomorrow. (3) E. coli UTI (urinary tract infection) Assessment/Plan: Dysuria resolved and a short course of 3 days of iv antibiotics were given. (4) Hypokalemia Assessment/Plan: She was given po replacement the last 2 days, and due to her dysphagia from polio, she did not tolerate it and has asked for iv runner, Give iv K x4 04/24 and normal today Will put K in her hydration fluid. 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 Her diet needs to be soft or even pureed, which she is ordered to get now, was advanced from clears. 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 There are no residual sx. (9) N&V (nausea and vomiting) Assessment/Plan: Resolved
--- NOTE | 2019-04-25 21:45 | PROVIDER PROGRESS NOTE ---
Subjective - General Admit Date: 04/21/19 Procedure Date: 04/14/19 Post Op Days: 11 - Review of Systems Wound/Incisions: positive: Healing well General: positive: Other (Feeling better. No further abd pain. Having more "normal " diarrhea.) Gastrointestinal: positive: Diarrhea All Other Systems: positive: Reviewed and negative (or covered in HPI/PMH) Objective - Patient Data Reviewed Vital Signs: Yes Vital Signs: Vital Signs x48h Temp Pulse Resp BP Pulse Ox 04/25/19 15:39 37.0 C 79 18 135/73 H 100 Intake & Output: Intake and Output Totals x24h 04/23/19 04/24/19 04/25/19 23:59 23:59 23:59 Intake Total 1110 0143.394 6030.667 Output Total 300 Balance 1110 4614.621 0626.667 - Lab Results Lab Results: 04/25/19 07:15 04/25/19 07:20 Other Lab Results: Lab Results x24hrs 04/25/19 04/25/19 Range/Units 07:20 07:15 WBC 4.4 L (4.8-10.8) x10^3/uL RBC 2.94 L (4.20-5.40) 10^6/uL Hgb 9.0 L (12.0-16.0) g/dL Hct 30.7 L (37.0-47.0) % MCV 104.4 H (81.0-99.0) fL MCH 30.6 (27.0-31.0) pg MCHC 29.3 L (32.0-36.0) g/dL RDW 17.2 H (12.0-15.0) % Plt Count 291 (130-450) 10^3/uL MPV 9.9 (7.9-10.8) fL Neut # (Auto) 3.0 (1.5-6.6) 10^3/uL Lymph # (Auto) 0.6 L (1.5-3.5) 10^3/uL [place] # (Auto) 0.3 (0.0-1.0) 10^3/uL Eos # (Auto) 0.1 (0.0-0.7) 10^3/uL Baso # (Auto) 0.0 (0.0-0.1) 10^3/uL Absolute Nucleated RBC 0.00 x10^3/uL Nucleated RBC % 0.0 /100WBC Sodium 141 (135-145) mmol/L Potassium 3.6 (3.5-5.0) mmol/L Chloride 109 (101-111) mmol/L Carbon Dioxide 22 (21-32) mmol/L Anion Gap 10.0 (6-13) BUN < 5 L (6-20) mg/dL Creatinine 0.3 L (0.4-1.0) mg/dL Estimated GFR (MDRD) 218 (>89) Glucose 89 (70-100) mg/dL Calcium 7.5 L (8.5-10.3) mg/dL Magnesium 1.7 (1.7-2.8) mg/dL - Current Medications Current Medications: Current Medications Generic Name Dose Route Start Last Admin Trade Name Freq PRN Reason Stop Dose Admin Cholecalciferol 2,000 unit 04/21/19 16:00 04/25/19 09:58 Vitamin D3 PO 2,000 unit DAILY JOSÉ MIGUEL Administration Famotidine 20 mg 04/23/19 21:00 04/25/19 09:58 Pepcid PO 20 mg BID JOSÉ MIGUEL Administration Heparin Sodium (Porcine) 5,000 unit 04/21/19 09:00 04/25/19 09:59 SUBQ Not Given BID JOSÉ MIGUEL Metronidazole 500 mg in 100 mls @ 100 mls/hr 04/21/19 02:00 04/25/19 19:47 Flagyl 500 Mg/100 Ml IV Infused Q8H JOSÉ MIGUEL Infusion Sodium Chloride 1,000 mls @ 0 mls/hr 04/22/19 15:00 04/25/19 10:16 Normal Saline 0.9% IV Infused .Q0M JOSÉ MIGUEL Infusion TKO Loperamide HCl 2 mg 04/22/19 14:29 04/24/19 08:41 Imodium PO 2 mg QID PRN Administration Diarrhea Ondansetron HCl 4 mg 04/21/19 01:22 04/24/19 04:35 Zofran Inj IVP 4 mg Q6HR PRN Administration Nausea / Vomiting Saccharomyces Boulardii 500 mg 04/21/19 12:00 04/25/19 17:45 Florastor PO 500 mg BIDWM JOSÉ MIGUEL Administration Sodium Chloride 10 ml 04/21/19 01:22 04/24/19 03:33 Normal Saline Flush 0.9% IVP 10 ml PRN PRN Administration NEEDED PER PROVIDER ORDERS Sodium Chloride 10 ml 04/21/19 09:00 04/25/19 17:46 Normal Saline Flush 0.9% IVP 10 ml 0100,0900,1700 JOSÉ MIGUEL Administration Vancomycin HCl 125 mg 04/21/19 09:00 04/25/19 17:45 Vancocin PO 125 mg QID JOSÉ MIGUEL Administration - Physical Exam Comments/Other: I spoke with Mrs Colmenares but did not examine her. She said she was feeling much better and the diarrhea was clearing. ABX Reporting Has patient been on IV antibiotics over the past 48 hours?: Yes Impression/Plan - Problem List Problem List: C. diff responding to current tx. Cont per Hospitalist recommendations.
[2019-04-26] MEDS: metroNIDAZOLE 500 MG/100 ML 500 MG/100 ML BAG IV SCH (02:00)
[2019-04-26] MEDS: SODIUM CHLORIDE FLUSH 0.9% 10 ML SYRINGE IVP SCH ×2 (02:01→09:44)
[2019-04-26 08:01] VITALS: BP 136/73
--- NOTE | 2019-04-26 08:39 | Discharge Plan ---
Discharge Plan Problem Reviewed?: Yes Disposition: Home, Self Care Condition: Good Prescriptions: Vancomycin [Vancocin] 125 mg PO QID #28 capsule Diet: Regular Activity Restrictions: Activity as Tolerated Shower Restrictions: No Driving Restrictions: No Assistance Devices: Crutches, Cane Instruction Topics: Clostridium Difficile Infec Health Concerns: Unfortunately you returned to our hospital after recently being discharged for C. difficile colitis. Your story begins all the way with an episode of diverticulitis, sepsis, and a prolonged hospitalization at the end of 2017. You then developed a urinary tract infection in relation to a cystoscopy in the summer 2018. You were treated with several antibiotics for UTIs in November, December, February. You then presented with abdominal pain to our institution in March. We thought you had appendicitis, underwent an appendectomy, but ended up having C. difficile colitis. We started treatment, sent you home. You return with continued abdominal pain, diarrhea, dehydration. Plan of Treatment: You responded to IV Flagyl, and oral vancomycin. Diarrhea has gradually resolved to the point that you are having soft formed stools. You no longer have abdominal pain. You are tolerating a normal diet without pain, diarrhea. Care Goals: 1. See your corporate counselor in follow-up. Dr. Sebastian Rainey should see you in the next 2 weeks and guide for how long you will be on vancomycin. 2. See your primary care provider, Dr. Mg, in follow-up over the next 2 to 4 weeks for continuity of care Assessment: Patient understands care goals. Copy of yesterday's progress note was sent to her corporate counselor, Sebastian Rainey No Smoking: If you smoke, Please STOP! Call for help. Follow-up with: Kimberly Mg MD [Primary Care Provider] -
[2019-04-26] MEDS: VANCOMYCIN 125 MG CAPSULE PO SCH (09:44)
[2019-04-26] MEDS: FAMOTIDINE 20 MG TABLET PO SCH (09:44)
[2019-04-26] MEDS: HEPARIN 5,000 UNIT/ML VIAL SUBQ SCH (09:44)
[2019-04-26] MEDS: SACCHAROMYCES BOULARDII 250 MG CAPSULE PO SCH (09:44)
[2019-04-26] MEDS: CHOLECALCIFEROL 1,000 UNIT TABLET PO SCH (09:44)
--- NOTE | 2019-04-26 18:00 | DISCHARGE SUMMARY ---
"Discharge Summary Admit Date: 04/21/19 Discharge Date: 04/26/19 Discharging Provider: Janey Gardner MD Primary Care Provider: Kimberly Mg MD Code Status: Attempt Resuscitation Condition at Discharge: Good Discharge Disposition: 01 Home, Self Care - DIAGNOSES Discharge Diagnoses with Status of Each Condition: 1. Pancolitis 2. C. difficile colitis 3. E. coli UTI 4. Hypokalemia 5. Anemia, chronic unspecified 6. 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 Her history dates to the end of the year 2017. She had an episode of diverticulitis, sepsis, surgery, and a prolonged hospitalization at [facility]. She recovered then deve loped problems with urination. She ended up having a cystoscopy in the summer 2018. She was treated for a UTI in November, December, and then again in February. She then presented to our hospital April 15 with severe left-sided abdominal pain. Appendix was not visualized. She was taken to the operating room and underwent an appendectomy. In the postoperative setting then had spontaneous starting of diarrhea which was identified as C. difficile colitis. She was discharged April 17 on oral vancomycin. She now returns with copious diarrhea. 4 bowel movements an hour. She noted that her heart rate was starting to get elevated and stool was foul-smelling. In the emergency room she was afebrile, tachycardic to the 90s, normotensive. White cell count was 8.7 with 7% bands. Potassium was 2.5. CT of the abdomen and pelvis showed severe pancolitis from her C. difficile. - CONSULTS | PROCEDURES Consultations: General surgery, Dr. Dunlap. Procedures: 1. Chest x-ray showing moderate hiatal hernia that is again noted. No acute findings seen. 2. Venous duplex study done for leg edema showed no evidence for acute DVT bilaterally, probable small chronic nonocclusive left profundus DVT. 3. Abdomen pelvis CT showed moderate hiatal hernia, unremarkable liver, severe diffuse colonic wall edema without pneumatosis or portal venous gas. Duodenal diverticulosis. Compatible with severe pancolitis that has progressed from her previous CT. 4. Stool culture negative for Salmonella, Shigella, E. coli, Aeromonas, Edw ardsiella, place you monos, Yersinia, vibrio. No Shiga toxin. Negative Campylobacter antigen assay. 5. Urine culture positive for E. coli. - HOSPITAL COURSE Hospital Course: The patient was started on oral vancomycin and IV Flagyl. General surgery was consulted and he recommended that the patient stay until diarrhea was controlled. With her previous day she was noted to have anemia with normal B12 and iron studies. Anemia was felt to be chronic and related to her illness. Hypokalemia was treated with supplementation of potassium. She was identified as having a UTI with E. coli and that was given antibiotics. She has polio, dysphasia, and nutrition services was consulted. Because of unilateral leg edema she underwent a ultrasound and no DVT was identified. 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 Patient went from having many stools per hour, weakness and fatigue to then being able to tolerate a diet, walking in her room with her crutches and braces. Bowel movements had gone down to 4 a day. Stool was formed and soft. She did have 2 mucus stools on April 24. She felt much better. Discharged in stable condition. Ambulating in her room with her leg braces and arm brace/crutches from her polio. Alert and oriented. Temperature 36.6, pulse 70, blood pressure 136/73, respirations 15 and 98% on room air. She is 5 foot 2 inches tall and weighs 58.5 kg. Neck is supple. Lungs are clear to a uscultation and percussion without any increased respiratory effort. PMI is normally placed with a regular rate and rhythm. The abdomen was soft, normal bowel sounds, no tenderness. Livido changes of leg chronic and unchanged. Greater than 30 minutes was spent correlating discharge. The patient is asked to follow-up with her primary care provider in the next 2 to 4 weeks. She also sees a community theater actor at [facility] gastroenterology and I have asked her to please follow-up with Dr. Sebastian Rainey in the next 2 weeks. I would like him to guide when her vancomycin therapy should stop. I did send him a copy of yesterday's note for his review. - ALLERGIES Allergies/Adverse Reactions: Allergies Allergy/AdvReac Type Severity Reaction Status Date / Time epinephrine Allergy Unknown Verified 04/20/19 20:17 erythromycin base Allergy Rash Verified 04/20/19 20:17 indomethacin Allergy Unknown Verified 04/20/19 20:17 Latex, Natural Rubber Allergy Rash Verified 04/20/19 20:17 Sulfa (Sulfonamide Allergy Dizziness Verified 04/20/19 20:17 Antibiotics) - MEDICATIONS Home Medications: Ambulatory Orders Medication Instructions Recorded Confirmed Aspirin Chewable [St Prince 81 mg PO DAILY 04/14/19 04/21/19 Aspirin] Calcium Carb/Vitamin D3/Vit K1 1 cap PO DAILY 04/14/19 04/21/19 [Viactiv 650 mg-12.5 Mcg Chew] Meloxicam [Qmiiz Odt] 7.5 mg PO DAILY 04/14/19 04/21/19 [place]-3/Dha/Epa/Fish Oil [Fish Oil 1 cap PO DAILY 04/14/19 04/21/19 1,000 mg Softgel] Omeprazole 40 mg PO DAILY 04/14/19 04/21/19 Vancomycin [Vancocin] 125 mg PO QID 8 Days #24 capsule 04/17/19 04/21/19 Vancomycin [Vancocin] 125 mg PO QID #28 capsule 04/26/19 - LABS Result Diagrams: 04/25/19 07:15 04/25/19 07:20"
== END 2019-04-26 10:12 | disposition home or self-care (01) | DRG 372 ==
LOC: ED 19:54 → MS2 04-21 01:22
PROVIDERS: ADMIT Internal Medicine; ATTEND Specialist
DX: A04.72 Enterocolitis due to Clostridium difficile, not specified as recurrent (principal); N39.0 Urinary tract infection, site not specified; R93.6 Abnormal findings on diagnostic imaging of limbs; R79.89 Other specified abnormal findings of blood chemistry; I82.512 Chronic embolism and thrombosis of left femoral vein; B96.20 Unspecified Escherichia coli [E. coli] as the cause of diseases classified elsewhere; G14 Postpolio syndrome; Z87.19 Personal history of other diseases of the digestive system; E87.6 Hypokalemia; D64.9 Anemia, unspecified; K21.9 Gastro-esophageal reflux disease without esophagitis; K44.9 Diaphragmatic hernia without obstruction or gangrene; K57.10 Diverticulosis of small intestine without perforation or abscess without bleeding; R11.2 Nausea with vomiting, unspecified; L95.0 Livedoid vasculitis; E86.0 Dehydration; E61.2 Magnesium deficiency; M62.562 Muscle wasting and atrophy, not elsewhere classified, left lower leg; M62.561 Muscle wasting and atrophy, not elsewhere classified, right lower leg; R60.0 Localized edema; I83.91 Asymptomatic varicose veins of right lower extremity; Z66 Do not resuscitate; Z79.82 Long term (current) use of aspirin; Z79.899 Other long term (current) drug therapy
CPT/HCPCS: 36415; 71045; 74177; 80048; 80053; 81001; 83605; 83690; 83735; 83880; 84100; 84443; 84484; 85025; 85610; 87086; 87181; 93005; 93970; 99281; 99285; A9270; J7120; J8499; Q9967; 81003

== ENCOUNTER 2019-05-28 17:39 | Emergency (ER) | payer MEDICARE, OTHER ==
[2019-05-28 18:07] VITALS: BP 140/79
[2019-05-28 18:10] LABS: BASOPHILS # (AUTO) 0.1 10^3/uL (0.0-0.1); BASOPHILS % (AUTO) 0.4 %; EOSINOPHILS # (AUTO) 0.1 10^3/uL (0.0-0.7); EOSINOPHILS % (AUTO) 1.1 %; HGB - HEMOGLOBIN 14.3 g/dL (12.0-16.0); LYMPHOCYTES # (AUTO) 0.9 10^3/uL (1.5-3.5); LYMPHOCYTES % (AUTO) 7.4 %; MEAN CORPUSCULAR HEMOGLOBIN 30.4 pg (27.0-31.0); MEAN CORPUSCULAR HGB CONC 31.5 g/dL (32.0-36.0); MEAN CORPUSCULAR VOLUME 96.4 fL (81.0-99.0); MEAN PLATELET VOLUME 10.2 fL (7.9-10.8); MONOCYTES # (AUTO) 0.7 10^3/uL (0.0-1.0); MONOCYTES % (AUTO) 6.1 %; NEUTROPHILS % (AUTO) 84.3 %; PLT - PLATELET COUNT 226 10^3/uL (130-450); RED BLOOD COUNT 4.71 10^6/uL (4.20-5.40); RED CELL DISTRIBUTION WIDTH 12.9 % (12.0-15.0); WHITE BLOOD COUNT 11.8 x10^3/uL (4.8-10.8)
[2019-05-28 18:26] LABS: ALBUMIN 4.3 g/dL (3.2-5.5); ALBUMIN/GLOBULIN RATIO 1.3 (1.0-2.2); BILIRUBIN,TOTAL 0.8 mg/dL (0.2-1.0); CREATININE 0.5 mg/dL (0.4-1.0); TOTAL PROTEIN 7.5 g/dL (6.7-8.2)
--- NOTE | 2019-05-28 18:41 | ED Physician Documentation ---
PD HPI ABD PAIN - Stated complaint Stated Complaint: ABD PX, DIARRHEA - Chief complaint Chief Complaint: Abd Pain - History obtained from History obtained from: Patient - History of Present Illness Timing - onset: Other (74-year-old woman who had C. difficile about a month ago. Has been off of vancomycin for a few weeks and on a probiotic. She was generally improving but still with some odd bowel movements but since yesterday has had a little bit of lower abdominal pain and diarrhea. She is worried about a recurrence. No fever.) Review of Systems Constitutional: denies: Fever (But a higher than normal temperature for her) GI: reports: Abdominal Pain, Diarrhea. denies: Nausea, Vomiting PD PAST MEDICAL HISTORY - Past Medical History Cardiovascular: None Respiratory: None Neuro: Peripheral neuropathy Endocrine/Autoimmune: None GI: GERD, Colon polyps, Diverticulitis (s/p expl lap in 2018 with washout but no resection), Other : Chronic bladder infection HEENT: None Psych: None Musculoskeletal: Scoliosis, Chronic back pain, Other (hx bulbar polio) Derm: None - Past Surgical History Past Surgical History: Yes General: Appendectomy, Bowel surgery (exp lap with washout for diverticulitis in 2018) /DIRECTOR MEDICAL WRITING: Hysterectomy - Present Medications Home Medications: Ambulatory Orders Medication Instructions Recorded Confirmed Aspirin Chewable [St Prince 81 mg PO DAILY 04/14/19 04/21/19 Aspirin] Calcium Carb/Vitamin D3/Vit K1 1 cap PO DAILY 04/14/19 04/21/19 [Viactiv 650 mg-12.5 Mcg Chew] Meloxicam [Qmiiz Odt] 7.5 mg PO DAILY 04/14/19 04/21/19 [place]-3/Dha/Epa/Fish Oil [Fish Oil 1 cap PO DAILY 04/14/19 04/21/19 1,000 mg Softgel] Omeprazole 40 mg PO DAILY 04/14/19 04/21/19 Vancomycin [Vancocin] 125 mg PO QID 8 Days #24 capsule 04/17/19 04/21/19 Vancomycin [Vancocin] 125 mg PO QID #28 capsule 04/26/19 - Allergies Allergies/Adverse Reactions: Allergies Allergy/AdvReac Type Severity Reaction Status Date / Time epinephrine Allergy Unknown Verified 05/28/19 18:02 erythromycin base Allergy Rash Verified 05/28/19 18:02 indomethacin Allergy Unknown Verified 05/28/19 18:02 Latex, Natural Rubber Allergy Rash Verified 05/28/19 18:02 Sulfa (Sulfonamide Allergy Dizziness Verified 05/28/19 18:02 Antibiotics) - Social History Does the pt smoke?: No Smoking Status: Never smoker Does the pt drink ETOH?: No Does the pt have substance abuse?: No PD ED PE NORMAL - Vitals Vital signs reviewed: Yes - General General: Alert and oriented X 3, No acute distress - Abdomen Abdomen: Normal bowel sounds, Soft, Non tender - Derm Derm: Normal color, Warm and dry - Neuro Neuro: Alert and oriented X 3, Normal speech Results - Vitals Vitals: Vital Signs - 24 hr 05/28/19 18:02 Temperature 37.2 C Heart Rate 111 H Respiratory 17 Rate Blood Pressure 140/79 H O2 Saturation 99 Oxygen O2 Source Room air - Labs Labs: Microbiology 05/28/19 18:46 Campylobacter Antigen Assay - Final Stool Laboratory Tests 05/28/19 05/28/19 18:02 18:02 WBC 11.8 H RBC 4.71 Hgb 14.3 Hct 45.4 MCV 96.4 MCH 30.4 MCHC 31.5 L RDW 12.9 Plt Count 226 MPV 10.2 Neut # (Auto) 10.0 H Lymph # (Auto) 0.[address] [place] # (Auto) 0.7 Eos # (Auto) 0.1 Baso # (Auto) 0.1 Absolute Nucleated RBC 0.00 Nucleated RBC % 0.0 Sodium 139 Potassium 3.8 Chloride 104 Carbon Dioxide 25 Anion Gap 10.0 BUN 28 H Creatinine 0.5 Estimated GFR (MDRD) 121 Glucose 102 H Calcium 9.0 Total Bilirubin 0.8 AST 21 ALT 18 Alkaline Phosphatase 62 Total Protein 7.5 Albumin 4.3 Globulin 3.2 Albumin/Globulin Ratio 1.3 Lipase 28 PD MEDICAL DECISION MAKING - ED course ED course: 74-year-old woman with concern for recurrence of C. difficile. Take several hours to run the test and she has vancomycin at home so I discussed with her I would be happy to call her with the result in a few hours. C. difficile result came back a few minutes after 9 PM and I called her and she will restart vancomycin which she has at home and follow-up with her sap basis consultant. Departure - Departure Disposition: 01 Home, Self Care Clinical Impression: Diarrhea, C. difficile colitis Condition: Good Record reviewed to determine appropriate education?: Yes Instructions: ED Diet Vomiting Diarrhea Comments: Your blood work looks okay. I will call you with the result in a few hours, if it is very late it may be in the morning. Return if worse. Please copy chart to Dr. Sebastian Rainey [facility] [address], [address] [place] [address] Discharge Date/Time: 05/28/19 18:54
== END 2019-05-28 18:54 | disposition home or self-care (01) ==
LOC: ED 17:39
DX: A04.72 Enterocolitis due to Clostridium difficile, not specified as recurrent (principal)
CPT/HCPCS: 36415; 80053; 83690; 85025; 87045; 87046; 87493; 99282; 99283

== ENCOUNTER 2020-01-02 06:30 | Emergency (ER) | payer MEDICARE, OTHER ==
[2020-01-02] MEDS ORDERED: SODIUM CHLORIDE 0.9% 1,000 ML IV STA ×2 (06:49→07:46)
[2020-01-02 07:18] LABS: BASOPHILS % (AUTO) 0.4 %; EOSINOPHILS % (AUTO) 0.3 %; HGB - HEMOGLOBIN 13.5 g/dL (12.0-16.0); LYMPHOCYTES # (AUTO) 0.4 10^3/uL (1.5-3.5); LYMPHOCYTES % (AUTO) 5.4 %; MEAN CORPUSCULAR HEMOGLOBIN 30.9 pg (27.0-31.0); MEAN CORPUSCULAR HGB CONC 32.5 g/dL (32.0-36.0); MEAN PLATELET VOLUME 10.5 fL (7.9-10.8); MONOCYTES # (AUTO) 0.3 10^3/uL (0.0-1.0); MONOCYTES % (AUTO) 3.5 %; NEUTROPHILS # (AUTO) 6.4 10^3/uL (1.5-6.6); NEUTROPHILS % (AUTO) 89.3 %; PLT - PLATELET COUNT 167 10^3/uL (130-450); RED BLOOD COUNT 4.37 10^6/uL (4.20-5.40); RED CELL DISTRIBUTION WIDTH 12.4 % (12.0-15.0); WHITE BLOOD COUNT 7.2 x10^3/uL (4.8-10.8)
[2020-01-02 07:35] LABS: ALBUMIN 4.1 g/dL (3.2-5.5); ALBUMIN/GLOBULIN RATIO 1.4 (1.0-2.2); BILIRUBIN,TOTAL 1.9 mg/dL (0.2-1.0); CALCIUM 8.4 mg/dL (8.5-10.3); CREATININE 0.6 mg/dL (0.4-1.0); MAGNESIUM 2.3 mg/dL (1.7-2.8)
--- NOTE | 2020-01-02 07:37 | ED Physician Documentation ---
PD HPI SYNCOPE - Stated complaint Stated Complaint: HYPOGLYCEMIA - Chief complaint Chief Complaint: General - History obtained from History obtained from: Patient - History of Present Illness Witnessed: Witnessed (patient felt very weak and lightheaded, feeling that she might pass out. Took BP at home and it was 85 systolic. Had been prepping for colonoscopy today at 10 am. Not much oral intake.) Timing - onset: Today (she has been clear liquids for past 3 days in preparation for CT colonoscaopy in [facility] this morning, and then had the Miralax prep starting last night. Feeling weak, lightheaded and almost fainted this morning. EMS called and they found her tachycardic with relatively low BP and blood sugar 60.) Duration: Hours (feeling generally weak this morning) Preceding symptoms: Nausea / vomiting (nauseated from bowel prep medication, the taste of it. Has had watery stools from the prep as well.), Light headed, Generalized weakness. No: Headache, Abdominal pain Associated symptoms: No: Headache, Chest pain, Abdominal pain Contributing factors: Decreased PO intake, Just stood up Injury occurred: No: Fell, Head injury Treatment VICE PRESIDENT OF DEVELOPMENT: Dextrose, Fluids Similar symptoms before: Has not had sx before Review of Systems Constitutional: denies: Fever, Chills, Myalgias Nose: denies: Rhinorrhea / runny nose, Congestion Throat: denies: Sore throat Respiratory: denies: Cough GI: reports: Nausea, Diarrhea. denies: Abdominal Pain, Vomiting, Constipation, Hematemesis, Bloody / black stool : denies: Dysuria Musculoskeletal: denies: Extremity swelling Neurologic: reports: Generalized weakness, Near syncope. denies: Syncope, Altered mental status, Headache PD PAST MEDICAL HISTORY - Past Medical History Past Medical History: Yes Cardiovascular: None Respiratory: None Neuro: Peripheral neuropathy Endocrine/Autoimmune: None GI: GERD, Colon polyps, Diverticulitis, Other : Chronic bladder infection HEENT: None Psych: None Musculoskeletal: Scoliosis, Chronic back pain, Other Derm: None - Past Surgical History Past Surgical History: Yes General: Appendectomy, Bowel surgery /YOUTH OFFICER: Hysterectomy - Present Medications Home Medications: Ambulatory Orders Medication Instructions Recorded Confirmed Aspirin Chewable [St Prince 81 mg PO DAILY 04/14/19 04/21/19 Aspirin] Calcium Carb/Vitamin D3/Vit K1 1 cap PO DAILY 04/14/19 04/21/19 [Viactiv 650 mg-12.5 Mcg Chew] Meloxicam [Qmiiz Odt] 7.5 mg PO DAILY 04/14/19 04/21/19 [place]-3/Dha/Epa/Fish Oil [Fish Oil 1 cap PO DAILY 04/14/19 04/21/19 1,000 mg Softgel] Omeprazole 40 mg PO DAILY 04/14/19 04/21/19 Vancomycin [Vancocin] 125 mg PO QID 8 Days #24 capsule 04/17/19 04/21/19 Vancomycin [Vancocin] 125 mg PO QID #28 capsule 04/26/19 - Allergies Allergies/Adverse Reactions: Allergies Allergy/AdvReac Type Severity Reaction Status Date / Time epinephrine Allergy Unknown Verified 05/28/19 18:02 erythromycin base Allergy Rash Verified 05/28/19 18:02 indomethacin Allergy Unknown Verified 05/28/19 18:02 Latex, Natural Rubber Allergy Rash Verified 05/28/19 18:02 Sulfa (Sulfonamide Allergy Dizziness Verified 05/28/19 18:02 Antibiotics) - Social History Does the pt smoke?: No Smoking Status: Never smoker Does the pt drink ETOH?: No Does the pt have substance abuse?: No - Immunizations Immunizations are current?: Yes - POLST Patient has POLST: No PD ED PE NORMAL - Vitals Vital signs reviewed: Yes - General General: Alert and oriented X 3, No acute distress (she states she is feeling improved with IV fluids enroute. Hoping to still make her scope/CT time at 10 am in [place]. coming with clothes for her. ), Well developed/nourished - HEENT HEENT: Atraumatic, Pharynx benign. No: Moist mucous membranes - Neck Neck: Supple, no meningeal sign, No adenopathy - Cardiac Cardiac: RRR (mild tachycardic), No murmur - Respiratory Respiratory: Clear bilaterally - Abdomen Abdomen: Normal bowel sounds, Soft, Non tender, Non distended, No organomegaly - Derm Derm: Normal color, Warm and dry - Extremities Extremities: No tenderness to palpate, Normal ROM s pain, No edema, No calf tenderness / cord - Neuro Neuro: Alert and oriented X 3, No motor deficit, No sensory deficit, Normal speech Results - Vitals Vitals: Vital Signs - 24 hr 01/02/20 01/02/20 06:31 08:56 Temperature 97.8 C H 36.3 C L Heart Rate 104 H 68 Respiratory 22 20 Rate Blood Pressure 122/60 118/70 O2 Saturation 100 98 Oxygen O2 Source Room air - Labs Labs: Laboratory Tests 01/02/20 01/02/20 07:05 07:05 WBC 7.2 RBC 4.37 Hgb 13.5 Hct 41.5 MCV 95.0 MCH 30.9 MCHC 32.5 RDW 12.4 Plt Count 167 MPV 10.5 Neut # (Auto) 6.4 Lymph # (Auto) 0.4 L [place] # (Auto) 0.3 Eos # (Auto) 0.0 Baso # (Auto) 0.0 Absolute Nucleated RBC 0.00 Nucleated RBC % 0.0 Sodium 137 Potassium 3.2 L Chloride 99 L Carbon Dioxide 22 Anion Gap 16.0 H BUN 31 H Creatinine 0.6 Estimated GFR (MDRD) 98 Glucose 193 H Calcium 8.4 L Magnesium 2.3 Total Bilirubin 1.9 H AST 28 ALT 28 Alkaline Phosphatase 68 Total Protein 7.0 Albumin 4.1 Globulin 2.9 Albumin/Globulin Ratio 1.4 Lipase 20 L PD MEDICAL DECISION MAKING - ED course Complexity details: considered differential (low volume due to bowel prep for procedure today. Will give IV fluids and check lytes/labs. ), d/w patient Departure - Departure Disposition: 01 Home, Self Care Clinical Impression: General weakness, Dehydration, Hypokalemia Condition: Stable Record reviewed to determine appropriate education?: Yes Instructions: ED Dehydration Follow-Up: Kimberly Mg MD [Primary Care Provider] - Comments: Your potassium was slightly low but not severely. I feel you would be clear for having your colonoscopy CT today as planned if there is still able to do it. You were given a potassium supplement IV here. Discharge Date/Time: 01/02/20 09:00
[2020-01-02] MEDS ORDERED: POTASSIUM CHLOR 10 MEQ/100 ML 10 MEQ/100 ML BAG IV ONE (07:45)
[2020-01-02 09:00] VITALS: BP 118/70
[2020-01-02] MEDS ORDERED: cefTRIAXone 2 GM in SODIUM CHLORIDE 0.9% MINIBAG 100 ML IV STA (09:01)
== END 2020-01-02 09:00 | disposition home or self-care (01) ==
LOC: EDUNIT# → ED 06:30
DX: E86.0 Dehydration (principal); E87.6 Hypokalemia; R53.1 Weakness; Z79.82 Long term (current) use of aspirin
CPT/HCPCS: 36415; 80053; 83690; 83735; 85025; 99282; 99284

== ENCOUNTER 2020-04-16 11:45 | Outpatient (CLI) | payer MEDICARE, OTHER ==
[2020-04-16 12:21] LABS: BASOPHILS # (AUTO) 0.1 10^3/uL (0.0-0.1); BASOPHILS % (AUTO) 0.9 %; EOSINOPHILS # (AUTO) 0.2 10^3/uL (0.0-0.7); EOSINOPHILS % (AUTO) 3.1 %; HGB - HEMOGLOBIN 14.1 g/dL (12.0-16.0); LYMPHOCYTES # (AUTO) 0.9 10^3/uL (1.5-3.5); MEAN CORPUSCULAR HEMOGLOBIN 30.3 pg (27.0-31.0); MEAN CORPUSCULAR HGB CONC 32.5 g/dL (32.0-36.0); MEAN CORPUSCULAR VOLUME 93.3 fL (81.0-99.0); MEAN PLATELET VOLUME 10.1 fL (7.9-10.8); MONOCYTES # (AUTO) 0.4 10^3/uL (0.0-1.0); MONOCYTES % (AUTO) 6.9 %; NEUTROPHILS # (AUTO) 3.9 10^3/uL (1.5-6.6); NEUTROPHILS % (AUTO) 71.4 %; PLT - PLATELET COUNT 185 10^3/uL (130-450); RED BLOOD COUNT 4.65 10^6/uL (4.20-5.40); RED CELL DISTRIBUTION WIDTH 12.6 % (12.0-15.0); WHITE BLOOD COUNT 5.4 x10^3/uL (4.8-10.8)
== END 2020-04-16 11:46 | disposition home or self-care (01) ==
LOC: LAB 11:45
PROVIDERS: ATTEND Surgery
DX: Z01.812 Encounter for preprocedural laboratory examination (principal); Z20.828 Contact with and (suspected) exposure to other viral communicable diseases; K56.609 Unspecified intestinal obstruction, unspecified as to partial versus complete obstruction
CPT/HCPCS: 85025; U0004; 36415

== ENCOUNTER 2020-04-19 06:28 | Inpatient (IN) | payer MEDICARE, OTHER ==
[2020-04-19] MEDS ORDERED: ACETAMINOPHEN 1,000 MG/100 ML 100 ML IV ONE ×2 (06:29→08:21)
[2020-04-19] MEDS ORDERED: CELECOXIB 100 MG CAPSULE PO ONE (06:29)
[2020-04-19] MEDS ORDERED: GABAPENTIN 400 MG CAPSULE ONE (06:30)
[2020-04-19] MEDS ORDERED: LACTATED RINGERS 1,000 ML IV ONE ×3 (07:00→11:30)
[2020-04-19] MEDS ORDERED: MIDAZOLAM 2 MG/2 ML VIAL ONE (07:04)
--- NOTE | 2020-04-19 07:08 | ANESTHESIA ---
Pre-Anesthesia VS, & Labs - Diagnosis colonic stenosis - Procedure left hemicolectomy/sigmoidectomy Vital Signs: Temp Pulse Resp BP Pulse Ox 37 C 95 16 154/88 H 99 04/19/20 06:50 04/19/20 06:50 04/19/20 06:50 04/19/20 06:50 04/19/20 06:50 Height: 5 ft Weight (kg): 56.6 kg Body Mass Index: 24.3 BMI Classification: Healthy weight - NPO >8 hours - Is Patient ?: No - Lab Results Current Lab Results: Laboratory Tests 04/19/20 06:58: POC Whole Bld Glucose 117 H Home Medications and Allergies Home Medications: Ambulatory Orders Lactobacillus Acidophilus [Probiotic Acidophilus] 1 each PO DAILY 04/16/20 Multivitamin 1 each PO DAILY 04/16/20 Vitamin B Complex/Folic Acid [B-Complex Tablet] 0.4 mg PO DAILY 04/16/20 Aspirin Chewable [St Prince Aspirin] 81 mg PO DAILY 04/14/19 Calcium Carb/Vitamin D3/Vit K1 [Viactiv 650 mg-12.5 Mcg Chew] 1 cap PO BID 04/14/19 Meloxicam [Qmiiz Odt] 7.5 mg PO DAILY 04/14/19 Omeprazole 40 mg PO DAILY 04/14/19 Lactobacillus Acidophilus [Probiotic Acidophilus] 1 each PO DAILY 04/16/20 Multivitamin 1 each PO DAILY 04/16/20 Vitamin B Complex/Folic Acid [B-Complex Tablet] 0.4 mg PO DAILY 04/16/20 Allergies/Adverse Reactions: Allergies Allergy/AdvReac Type Severity Reaction Status Date / Time epinephrine Allergy drool, Verified 04/16/20 10:38 shaking, crying erythromycin base Allergy Rash Verified 05/28/19 18:02 indomethacin Allergy Unknown Verified 05/28/19 18:02 Latex, Natural Rubber Allergy Rash, Verified 04/16/20 10:38 blisters Sulfa (Sulfonamide Allergy Dizziness Verified 05/28/19 18:02 Antibiotics) Anes History & Medical History - Anesthetic History Anesthesia Complications: reports: No previous complications - Medical History Cardiovascular: reports: None Pulmonary: reports: None Gastrointestinal: reports: GERD, Hiatal hernia, C.difficile, Diverticulitis Urinary: reports: None Neuro: reports: Peripheral neuropathy Musculoskeletal: reports: Osteoarthritis, Scoliosis, Chronic back pain, Other (post polio syndrome, weakness left leg uses brace) Endocrine/Autoimmune: reports: None Skin: reports: None Smoking Status: Never smoker - Surgical History General: Appendectomy, Bowel surgery, Colonoscopy Gynecologic: Hysterectomy Exam General: Alert, Oriented x3 Dental: WNL Mouth Opening: Greater than 4 Fingerbreadths Mallampati classification: I Thyromental Distance: greater than 6 cm Respiratory: Lungs clear Cardiovascular: Regular rate Neurological: Other (left leg weakness secondary to post polio syndrome) Mental/Cognitive Status: Alert/Oriented X3 Plan Anesthesia Type: General, Epidural, Transverse Abdominis Plane (TAP) Block (epidural or tap block) Consent for Procedure(s) Verified and Reviewed: Yes Code Status: Attempt Resuscitation ASA classification: 2-Mild systemic disease Is this case an emergency?: No
[2020-04-19] MEDS ORDERED: CEFOTETAN DISODIUM 2 GM in SODIUM CHLORIDE 0.9% MINIBAG 100 ML IV SCH (07:30)
[2020-04-19] MEDS ORDERED: ROPIVACAINE 0.2% PF 20ML VIAL ONE (07:36)
[2020-04-19] MEDS ORDERED: BUPIVACAINE 0.5% PF 30 ML VIAL ONE (07:40)
[2020-04-19] MEDS ORDERED: DEXAMETHASONE 4 MG/ML VIAL IVP ONE (08:21)
[2020-04-19] MEDS ORDERED: KETOROLAC 30 MG/ML VIAL IVP ONE (08:21)
[2020-04-19] MEDS ORDERED: ePHEDrine 50 MG/ML VIAL IVP ONE (08:21)
[2020-04-19] MEDS ORDERED: ROPIVACAINE 0.2% PF 20ML VIAL EP ONE (08:21)
[2020-04-19] MEDS ORDERED: PROPOFOL 200 MG/20 ML VIAL IVP ONE (08:21)
[2020-04-19] MEDS ORDERED: SUCCINYLCHOLINE 200 MG/10 ML VIAL IVP ONE (08:21)
[2020-04-19] MEDS ORDERED: MAGNESIUM SULFATE 1 GM/2 ML VIAL IV ONE (08:21)
[2020-04-19] MEDS ORDERED: fentaNYL 100 MCG/2 ML VIAL IVP ONE (08:21)
[2020-04-19] MEDS ORDERED: LIDOCAINE-MPF 2% 5 ML VIAL IM ONE (08:21)
[2020-04-19] MEDS ORDERED: ROCURONIUM 50 MG/5 ML VIAL IVP ONE (08:21)
[2020-04-19] MEDS ORDERED: DEXMEDETOMIDINE 200 MCG/2 ML VIAL IV ONE (08:21)
[2020-04-19] MEDS ORDERED: KETAMINE 500 MG/10 ML VIAL IVP ONE (08:21)
[2020-04-19] MEDS ORDERED: MIDAZOLAM 2 MG/2 ML VIAL IVP ONE (08:21)
[2020-04-19] MEDS ORDERED: ONDANSETRON 4 MG/2 ML VIAL IVP ONE (08:21)
[2020-04-19] MEDS ORDERED: NALBUPHINE 10 MG/ML AMP IVP PRN (08:52)
[2020-04-19] MEDS ORDERED: ROPIVACAINE 0.2% 200 MG/100 ML BAG EP PRN (08:52)
[2020-04-19] MEDS ORDERED: diphenhydrAMINE INJ 50 MG/ML VIAL IVP PRN (08:52)
[2020-04-19] MEDS ORDERED: ONDANSETRON 4 MG/2 ML VIAL IVP PRN (08:56)
[2020-04-19] MEDS ORDERED: METOCLOPRAMIDE 10 MG/2 ML VIAL IVP PRN (08:56)
[2020-04-19] MEDS ORDERED: NALOXONE 0.4 MG/ML VIAL IVP PRN (08:56)
[2020-04-19] MEDS ORDERED: HYDROmorphone 0.5 MG/0.5 ML SYRINGE IVP PRN (08:56)
[2020-04-19] MEDS ORDERED: ePHEDrine 50 MG/ML VIAL IVP PRN (08:56)
[2020-04-19] MEDS ORDERED: ATROPINE ABBOJECT 1 MG/10 ML SYRINGE IVP PRN (08:56)
[2020-04-19] MEDS ORDERED: fentaNYL 100 MCG/2 ML VIAL IVP PRN (08:56)
[2020-04-19] MEDS ORDERED: LACTATED RINGERS 1,000 ML IV SCH ×2 (09:00→11:00)
--- NOTE | 2020-04-19 10:19 | ANESTHESIA PROCEDURE NOTE ---
Height and Weight: Height 5 ft Weight (kg) 56.6 kg Body Mass Index 24.3 Vital Signs: Temp Pulse Resp BP Pulse Ox 37 C 95 16 154/88 H 99 04/19/20 06:50 04/19/20 06:50 04/19/20 06:50 04/19/20 06:50 04/19/20 06:50 Allergies epinephrine Allergy (Verified 04/16/20 10:38) drool, shaking, crying erythromycin base Allergy (Verified 05/28/19 18:02) Rash indomethacin Allergy (Verified 05/28/19 18:02) Unknown Latex, Natural Rubber Allergy (Verified 04/16/20 10:38) Rash, blisters Sulfa (Sulfonamide Antibiotics) Allergy (Verified 05/28/19 18:02) Dizziness burning sensation Anesthesia Epidural Template - Patient Report Patient Reports: positive: Other (placed preoperative for POP per ERAS, Patient consent obtained, TO with RN, Patient sitting for placement. Cloraprep, local with 1% lidocaine 5cc. Attempts at T6 unable due to os, attempt T7, ISSA with NS at 5cm, catheter threaded 5 cm, 10cm at skin, test dose negative. Secured with tegederm.) - Exam Epidural Medication Information: Test dose 3cc of 1.5% lidocaine with 1;200k epi - Other Comments Other Comments: patient tolerated procedure well with 2 mg Versed.
[2020-04-19] MEDS ORDERED: ROPIVACAINE 0.2% 200 MG/100 ML BAG EP ONE ×2 (10:32→19:27)
--- NOTE | 2020-04-19 10:44 | OPERATIVE REPORT ---
Operative Report - General Admit Date: 04/19/20 Procedure Date: 04/19/20 Planned Procedure: LEFT hemicolectomy, possible low anterior resection, possible ileostomy, possible colostomy Pre-Op Diagnosis: Colonic stenosis, incisional hernia Procedure Performed: Sigmoidectomy Ventral herniorrhaphy (primary - no mesh) Post Op Diagnosis: Colonic stenosis (favor diverticular etiology), ventral aidan ia (not incisio - Procedure Note Primary Surgeon: MD Latasha Secondary Surgeon: MD Awais Anesthesia Provider: FRIEDA Dominguez Anesthesia Technique: Epidural, General ET tube IV Fluids (mL): 2,000 Estimated Blood Loss (mL): 25 Urine Output (mL): 225 Drain/Tube Type: Other (None) Findings: Stenosis was in the mid-distal sigmoid colon initially thought malignant etiology and CEA ordered and drawn. Oncologic resection performed. Specimen was opened on a back table and diverticular etiiology favored. Adhesions prevented manual examination of the liver. Hernia was ventral and NOT incisional. No other intra-abdominal pathology noted. Complications: None. - Other Other Information/Narrative: Dictation into this program has been disabled - look for follow up operative report.
--- NOTE | 2020-04-19 13:04 | ANESTHESIA POST OP EVALUATION ---
Anesthesia Post Eval - Post Anesthesia Eval Vitals: Last Vital Signs Temp 36 C L 04/19/20 11:30 Pulse 72 04/19/20 11:30 Resp 18 04/19/20 11:30 BP 109/78 04/19/20 11:30 Pulse Ox 99 04/19/20 11:30 CV Function Including HR & BP: positive: Stable Pain Control: positive: Satisfactory Mental Status: positive: Patient Participates Respiratory Status: Airway Patent Hydration Status: Satisfactory Anesthesia Complications: positive: None
[2020-04-19] MEDS: LACTATED RINGERS 1,000 ML IV SCH (14:05)
[2020-04-19] MEDS: ONDANSETRON 4 MG/2 ML VIAL IVP PRN (15:04)
[2020-04-19 15:15] LABS: BASOPHILS % (AUTO) 0.1 %; HGB - HEMOGLOBIN 12.7 g/dL (12.0-16.0); LYMPHOCYTES # (AUTO) 0.2 10^3/uL (1.5-3.5); LYMPHOCYTES % (AUTO) 2.5 %; MEAN CORPUSCULAR HEMOGLOBIN 30.5 pg (27.0-31.0); MEAN CORPUSCULAR HGB CONC 32.7 g/dL (32.0-36.0); MEAN PLATELET VOLUME 9.9 fL (7.9-10.8); MONOCYTES # (AUTO) 0.5 10^3/uL (0.0-1.0); MONOCYTES % (AUTO) 6.5 %; NEUTROPHILS # (AUTO) 7.2 10^3/uL (1.5-6.6); NEUTROPHILS % (AUTO) 90.5 %; PLT - PLATELET COUNT 135 10^3/uL (130-450); RED BLOOD COUNT 4.17 10^6/uL (4.20-5.40); RED CELL DISTRIBUTION WIDTH 12.4 % (12.0-15.0); WHITE BLOOD COUNT 7.9 x10^3/uL (4.8-10.8)
--- NOTE | 2020-04-19 16:06 | PHARMACY PROGRESS NOTE ---
- Best Possible Medication History Admit Date and Time: 04/19/20627 Processed by: Pharmacy Medication History completed: Yes Patient Interview: Completed Secondary Source(s): Physician records, Pharmacy records, Insurance records As the person ultimately responsible for medication therapy, providers are able to order a medication from an existing home medication list in [facility] via the "Reconcile Routine" prior to Confirmation of that medication by applications support lead. Such practice is discouraged except when the physician, in their clinical judgment, deems that a medical need exists for a medication without regard to previous use.
[2020-04-19] MEDS ORDERED: CEFOTETAN DISODIUM 1 GM in SODIUM CHLORIDE 0.9% MINIBAG 100 ML IV SCH (20:00)
[2020-04-20 05:38] LABS: BASOPHILS % (AUTO) 0.3 %; HGB - HEMOGLOBIN 11.1 g/dL (12.0-16.0); LYMPHOCYTES # (AUTO) 0.5 10^3/uL (1.5-3.5); LYMPHOCYTES % (AUTO) 6.7 %; MEAN CORPUSCULAR HEMOGLOBIN 30.2 pg (27.0-31.0); MEAN CORPUSCULAR HGB CONC 32.8 g/dL (32.0-36.0); MEAN CORPUSCULAR VOLUME 91.8 fL (81.0-99.0); MEAN PLATELET VOLUME 10.2 fL (7.9-10.8); MONOCYTES # (AUTO) 0.5 10^3/uL (0.0-1.0); MONOCYTES % (AUTO) 7.3 %; NEUTROPHILS # (AUTO) 5.7 10^3/uL (1.5-6.6); NEUTROPHILS % (AUTO) 85.3 %; PLT - PLATELET COUNT 146 10^3/uL (130-450); RED BLOOD COUNT 3.68 10^6/uL (4.20-5.40); RED CELL DISTRIBUTION WIDTH 12.6 % (12.0-15.0); WHITE BLOOD COUNT 6.7 x10^3/uL (4.8-10.8)
[2020-04-20 05:54] LABS: ALBUMIN 3.2 g/dL (3.2-5.5); ALBUMIN/GLOBULIN RATIO 1.6 (1.0-2.2); BILIRUBIN,TOTAL 0.9 mg/dL (0.2-1.0); CALCIUM 8.2 mg/dL (8.5-10.3); CREATININE 0.4 mg/dL (0.4-1.0); TOTAL PROTEIN 5.2 g/dL (6.7-8.2)
[2020-04-20] MEDS: LACTATED RINGERS 1,000 ML IV SCH (11:23)
--- NOTE | 2020-04-20 11:33 | PROVIDER PROGRESS NOTE ---
Subjective - General Admit Date: 04/19/20 Procedure Date: 04/19/20 Post Op Days: 1 Procedure Performed: Sigmoidectomy with colocolostomy and ventral herniorrh - Review of Systems Wound/Incisions: positive: Drainage, Other (Dressing not removed. Slight heme.) Drain Type: None. General: positive: No symptoms HEENT: positive: No symptoms Pulmonary: positive: No symptoms Cardiovascular: positive: No symptoms Gastrointestinal: positive: Abdominal pain (Secondary to surgery - appropriate.) Genitourinary: positive: No symptoms (Hamilton in place.) Musculoskeletal: positive: No symptoms Skin: positive: No symptoms Psychiatric: positive: No symptoms Objective - Patient Data Reviewed Vital Signs: Yes Vital Signs: Vital Signs x48h Temp Pulse Resp BP Pulse Ox 04/20/20 07:00 36.9 C 82 16 110/64 100 Weight: Weight 04/18/20 04/19/20 04/20/20 23:59 23:59 23:59 Weight (kg) 56.6 kg Intake & Output: Intake and Output Totals x24h 04/18/20 04/19/20 04/20/20 23:59 23:59 23:59 Intake Total 450 1000.000 Output Total 1150 100 Balance -700 900.000 - Lab Results Lab Results: 04/20/20 05:20 04/20/20 05:20 Other Lab Results: Lab Results x24hrs 04/20/20 04/20/20 04/20/20 Range/Units 07:38 05:20 05:20 WBC 6.7 (4.8-10.8) x10^3/uL RBC 3.68 L (4.20-5.40) 10^6/uL Hgb 11.1 L (12.0-16.0) g/dL Hct 33.8 L (37.0-47.0) % MCV 91.8 (81.0-99.0) fL MCH 30.2 (27.0-31.0) pg MCHC 32.8 (32.0-36.0) g/dL RDW 12.6 (12.0-15.0) % Plt Count 146 (130-450) 10^3/uL MPV 10.2 (7.9-10.8) fL Neut # (Auto) 5.7 (1.5-6.6) 10^3/uL Lymph # (Auto) 0.5 L (1.5-3.5) 10^3/uL [place] # (Auto) 0.5 (0.0-1.0) 10^3/uL Eos # (Auto) 0.0 (0.0-0.7) 10^3/uL Baso # (Auto) 0.0 (0.0-0.1) 10^3/uL Absolute Nucleated RBC 0.00 x10^3/uL Nucleated RBC % 0.0 /100WBC Sodium 140 (135-145) mmol/L Potassium 3.8 (3.5-5.0) mmol/L Chloride 110 (101-111) mmol/L Carbon Dioxide 24 (21-32) mmol/L Anion Gap 6.0 (6-13) BUN 15 (6-20) mg/dL Creatinine 0.4 (0.4-1.0) mg/dL Estimated GFR (MDRD) 156 (>89) Glucose 112 H (70-100) mg/dL POC Whole Bld Glucose 92 (70 - 100) mg/dL Calcium 8.2 L (8.5-10.3) mg/dL Total Bilirubin 0.9 (0.2-1.0) mg/dL AST 28 (10-42) IU/L ALT 18 (10-60) IU/L Alkaline Phosphatase 48 (42-121) IU/L Total Protein 5.2 L (6.7-8.2) g/dL Albumin 3.2 (3.2-5.5) g/dL Globulin 2.0 L (2.1-4.2) g/dL Albumin/Globulin Ratio 1.6 (1.0-2.2) 04/19/20 04/19/20 04/19/20 Range/Units 20:37 16:47 15:09 WBC 7.9 (4.8-10.8) x10^3/uL RBC 4.17 L (4.20-5.40) 10^6/uL Hgb 12.7 (12.0-16.0) g/dL Hct 38.8 (37.0-47.0) % MCV 93.0 (81.0-99.0) fL MCH 30.5 (27.0-31.0) pg MCHC 32.7 (32.0-36.0) g/dL RDW 12.4 (12.0-15.0) % Plt Count 135 (130-450) 10^3/uL MPV 9.9 (7.9-10.8) fL Neut # (Auto) 7.2 H (1.5-6.6) 10^3/uL Lymph # (Auto) 0.2 L (1.5-3.5) 10^3/uL [place] # (Auto) 0.5 (0.0-1.0) 10^3/uL Eos # (Auto) 0.0 (0.0-0.7) 10^3/uL Baso # (Auto) 0.0 (0.0-0.1) 10^3/uL Absolute Nucleated RBC 0.00 x10^3/uL Nucleated RBC % 0.0 /100WBC Sodium (135-145) mmol/L Potassium (3.5-5.0) mmol/L Chloride (101-111) mmol/L Carbon Dioxide (21-32) mmol/L Anion Gap (6-13) BUN (6-20) mg/dL Creatinine (0.4-1.0) mg/dL Estimated GFR (MDRD) (>89) Glucose (70-100) mg/dL POC Whole Bld Glucose 326 H 152 H (70 - 100) mg/dL Calcium (8.5-10.3) mg/dL Total Bilirubin (0.2-1.0) mg/dL AST (10-42) IU/L ALT (10-60) IU/L Alkaline Phosphatase (42-121) IU/L Total Protein (6.7-8.2) g/dL Albumin (3.2-5.5) g/dL Globulin (2.1-4.2) g/dL Albumin/Globulin Ratio (1.0-2.2) 04/19/20 Range/Units 13:14 WBC (4.8-10.8) x10^3/uL RBC (4.20-5.40) 10^6/uL Hgb (12.0-16.0) g/dL Hct (37.0-47.0) % MCV (81.0-99.0) fL MCH (27.0-31.0) pg MCHC (32.0-36.0) g/dL RDW (12.0-15.0) % Plt Count (130-450) 10^3/uL MPV (7.9-10.8) fL Neut # (Auto) (1.5-6.6) 10^3/uL Lymph # (Auto) (1.5-3.5) 10^3/uL [place] # (Auto) (0.0-1.0) 10^3/uL Eos # (Auto) (0.0-0.7) 10^3/uL Baso # (Auto) (0.0-0.1) 10^3/uL Absolute Nucleated RBC x10^3/uL Nucleated RBC % /100WBC Sodium (135-145) mmol/L Potassium (3.5-5.0) mmol/L Chloride (101-111) mmol/L Carbon Dioxide (21-32) mmol/L Anion Gap (6-13) BUN (6-20) mg/dL Creatinine (0.4-1.0) mg/dL Estimated GFR (MDRD) (>89) Glucose (70-100) mg/dL POC Whole Bld Glucose 140 H (70 - 100) mg/dL Calcium (8.5-10.3) mg/dL Total Bilirubin (0.2-1.0) mg/dL AST (10-42) IU/L ALT (10-60) IU/L Alkaline Phosphatase (42-121) IU/L Total Protein (6.7-8.2) g/dL Albumin (3.2-5.5) g/dL Globulin (2.1-4.2) g/dL Albumin/Globulin Ratio (1.0-2.2) - Current Medications Current Medications: Current Medications Generic Name Dose Route Start Last Admin Trade Name Freq PRN Reason Stop Dose Admin Lactated Ringer's 1,000 mls @ 50 mls/hr 04/19/20 11:00 04/20/20 11:23 Lr IV 50 mls/hr .Q20H JOSÉ MIGUEL Administration Ondansetron HCl 4 mg 04/19/20 08:52 04/19/20 15:04 Zofran Inj IVP 4 mg Q6HR PRN Administration Nausea / Vomiting - Physical Exam Wound/Incisions: positive: Other (Dressing in place with slight drainage - heme.) General Appearance: positive: No acute distress, Alert Eyes Bilateral: positive: No lid inflammation, Conjunctivae nml, No scleral icterus ENT: positive: No signs of dehydration Neck: positive: Trachea midline Respiratory: positive: Chest non-tender, No respiratory distress, Breath sounds nml Cardiovascular: positive: Regular rate & rhythm, No murmur, No gallop Abdomen: positive: No distention, Tenderness (Incisional.), Abnml bowel sounds (Decreased to absent.). negative: Guarding, Rebound, Bruit Skin: positive: Color nml Extremities: positive: Other (Braces in place.) Neurologic/Psychiatric: positive: Oriented x3, Mood/affect nml ABX Reporting Has patient been on IV antibiotics over the past 48 hours?: Yes Impression/Plan - Problem List Problem List: D1 s/p sigmoidectomy (92383) and ventral herniorrhaphy (08519) 1) FEN Continue with ERAS protocol diet and limited IVF. 2) ID No indication of infection. All antibiotics stopped less than 24 hours after surgery. 3) Pain Interestingly patient's sensation appears the same from shoulder to hip - I am curious if epidural is working to potential. Patient will require liquid oral pain medications when she transitions off epidural as she cannot take pills. 4) DVT Prophylaxis with TEDs/venadynes. Epidural in place and although Love nox COULD be given - concern about blood from rectum and epidural catheter is going to keep me from ordering it. 5) Activity I am very pleased with PT/nursing/patient and all of their efforts - nice job! 6) Bowel No function yet - not nauseous.
[2020-04-20] MEDS ORDERED: fentaNYL 100 MCG/2 ML VIAL ONE (14:37)
[2020-04-20] MEDS ORDERED: SODIUM CHLORIDE 0.9% 10 ML ONE (14:39)
[2020-04-20] MEDS ORDERED: ROPIVACAINE 0.2% 200 MG/100 ML BAG EP PRN (14:40)
--- NOTE | 2020-04-20 14:40 | ANESTHESIA PROCEDURE NOTE ---
Anesthesia Epidural Template - Patient Report Patient Reports: positive: Inadequate control - Exam Epidural Medication Information: Epidural Medications Medication Ropivacaine o.2% Demand Dose Setting 2 Bolus Amount 6 - Plan Plan: positive: Other (Continue with 6ml every 50 mins. No PCEA.) - Other Comments Other Comments: Patient reported she had good pain control until 2am. Site looks good, no move ment on epidural. Epidural pump had been programed with PCEA that was resetting the PIEB. Patient had not gotten the 6ml bolus for several hours. Pump was reprogramed and 6ml dose of ropivicaine was given thru pump. Also gave an additional 100mcg fentanyl with 8ml of PF NS. If patient is not comfortable after the above interventions, will removed epidural.
[2020-04-21] MEDS: LACTATED RINGERS 1,000 ML IV SCH (05:58)
[2020-04-21] MEDS ORDERED: ACETAMINOPHEN 1,000 MG/100 ML 100 ML IV SCH (08:51)
[2020-04-21] MEDS ORDERED: HYDROmorphone 0.5 MG/0.5 ML SYRINGE IVP PRN ×2 (08:52→11:25)
[2020-04-21] MEDS: ONDANSETRON 4 MG/2 ML VIAL IVP PRN (09:08)
--- NOTE | 2020-04-21 11:16 | PROVIDER PROGRESS NOTE ---
Subjective - General Admit Date: 04/19/20 Procedure Date: 04/19/20 Post Op Days: 2 Procedure Performed: Sigmoidectomy with colocolostomy and ventral herniorrh - Review of Systems Wound/Incisions: positive: Dressing dry and intact (No new drainage.), Other (Dressing in place with slight drainage - heme.) Drain Type: None. General: positive: No symptoms HEENT: positive: No symptoms Pulmonary: positive: No symptoms Cardiovascular: positive: No symptoms Gastrointestinal: positive: Abdominal pain (Less than yesterday secondary to surgery - appropriate.) Genitourinary: positive: No symptoms (Hamilton in place.) Musculoskeletal: positive: No symptoms Skin: positive: No symptoms Psychiatric: positive: No symptoms Objective - Patient Data Reviewed Vital Signs: Yes Vital Signs: Vital Signs x48h Temp Pulse Resp BP Pulse Ox 04/21/20 07:46 36.9 C 72 16 129/65 98 Weight: Weight 04/19/20 04/20/20 04/21/20 23:59 23:59 23:59 Weight (kg) 56.6 kg Intake & Output: Intake and Output Totals x24h 04/19/20 04/20/20 04/21/20 23:59 23:59 23:59 Intake Total 450 6320.774 5565 Output Total 1150 350 850 Balance -700 1320.000 370 - Lab Results Lab Results: 04/20/20 05:20 04/20/20 05:20 Other Lab Results: Lab Results x24hrs 04/21/20 04/20/20 04/20/20 Range/Units 07:44 20:25 16:33 POC Whole Bld Glucose 79 94 81 (70 - 100) mg/dL 04/20/20 Range/Units 11:37 POC Whole Bld Glucose 77 (70 - 100) mg/dL - Current Medications Current Medications: Current Medications Generic Name Dose Route Start Last Admin Trade Name Freq PRN Reason Stop Dose Admin Hydromorphone HCl 0.2 mg 04/21/20 08:52 04/21/20 09:06 Dilaudid Inj Syringe IVP 0.2 mg Q20M PRN Administration PAIN Lactated Ringer's 1,000 mls @ 50 mls/hr 04/19/20 11:00 04/21/20 05:58 Lr IV 50 mls/hr .Q20H JOSÉ MIGUEL Administration Ropivacaine 200 mg in 100 mls @ 0 mls/hr 04/20/20 14:40 04/21/20 02:10 Naropin 0.2% EP 6 mls/hr PRN PRN Administration PAIN Protocol Per Protocol Ondansetron HCl 4 mg 04/19/20 08:52 04/21/20 09:08 Zofran Inj IVP 4 mg Q6HR PRN Administration Nausea / Vomiting - Physical Exam Wound/Incisions: positive: Dressing dry and intact (No additional drainage.) General Appearance: positive: No acute distress Eyes Bilateral: positive: No lid inflammation, Conjunctivae nml, No scleral icterus ENT: positive: No signs of dehydration Neck: positive: Trachea midline Respiratory: positive: Chest non-tender, No respiratory distress, Breath sounds nml Cardiovascular: positive: Regular rate & rhythm, No murmur, No gallop. negative: Tachycardia, Bradycardia Abdomen: positive: No distention, Tenderness (Decreased from yesterday.), Abnml bowel sounds (Increased from yesterday.) Skin: positive: Color nml Neurologic/Psychiatric: positive: Oriented x3, Mood/affect nml ABX Reporting Has patient been on IV antibiotics over the past 48 hours?: No Impression/Plan - Problem List Problem List: D2 s/p sigmoidectomy (68067) and ventral herniorrhaphy (10850) 1) FEN Switch to general diet and TKO IVF for breakthrough pain. 2) ID No indication of infection. 3) Pain Epidural setting changed and will start oral pain medication today. Discussed techniques for pain relief. 4) DVT Prophylaxis with TEDs/venadynes. Definitely would not give Lovenox now with epidural ready to come out. 5) Activity I am very pleased with PT/nursing/patient and all of their efforts - doubly nice job! 6) Bowel Small BM (liquid) - not nauseous.
[2020-04-21] MEDS: HYDROcodone/ACETAM 7.5 MG/325 MG 15 ML UDC PO PRN ×2 (12:41→18:11)
[2020-04-21] MEDS ORDERED: ROPIVACAINE 0.2% 200 MG/100 ML BAG EP PRN (16:48)
[2020-04-21] MEDS: HYDROmorphone 0.5 MG/0.5 ML SYRINGE IVP PRN ×2 (18:46→22:24)
--- NOTE | 2020-04-21 19:42 | ANESTHESIA PROCEDURE NOTE ---
Anesthesia Epidural Template - Patient Report Patient Reports: positive: Pain controlled (with po meds) - Exam Epidural Medication Information: Epidural Medications Medication Ropivicaine 0.2% Demand Dose Setting 0 Bolus Amount 6 - Plan Plan: positive: Other (epidural d/destin, tip intact, site clear)
[2020-04-22] MEDS: LACTATED RINGERS 1,000 ML IV SCH (00:58)
[2020-04-22] MEDS: HYDROcodone/ACETAM 7.5 MG/325 MG 15 ML UDC PO PRN ×2 (00:58→06:49)
--- NOTE | 2020-04-22 08:48 | Discharge Plan ---
Discharge Plan Problem Reviewed?: Yes Disposition: Home, Self Care Condition: Good Prescriptions: Oxycodone HCl/Acetaminophen [Percocet 5-325 mg Tablet] 1 each PO Q4HR #20 tablet Diet: Regular Activity Restrictions: No lifting >15 pounds for Shower Restrictions: No Driving Restrictions: Yes Assistance Devices: Other (The assistance devices she wore and used into the hospital.) Weight Bearing: Full Weight Plan of Treatment: Continued improvement in strength and decrease to zero of abdominal pain. Additional Instructions or Follow Up instructions: No lifting >15 pounds for 6 weeks. Call me with ANY questions or concerns. No Smoking: If you smoke, Please STOP! Call for help. Follow-up with: Kimberly Mg MD [Primary Care Provider] - Colby Pagan MD [Provider Admit Priv/Credential] -
--- NOTE | 2020-04-22 09:06 | DISCHARGE SUMMARY ---
"Discharge Summary Admit Date: 04/19/20 Discharge Date: 04/22/20 Discharging Provider: MD Latasha Code Status: Attempt Resuscitation Condition at Discharge: Good Discharge Disposition: 01 Home, Self Care - DIAGNOSES Admission Diagnoses: Colonic stenosis Incisional hernia Discharge Diagnoses with Status of Each Condition: Resolved with surgery - HPI History of Present Illness: 75 year old female with history of diverticular disease who presented to GI with colonic stricture that prevented evaluation of her colon. [facility]aused abdominal [facility] - CONSULTS | PROCEDURES Consultations: None. Procedures: Sigmoidectomy and ventral herniorrhaphy - HOSPITAL COURSE Hospital Course: Uncomplicated. - ALLERGIES Allergies/Adverse Reactions: Allergies Allergy/AdvReac Type Severity Reaction Status Date / Time epinephrine Allergy drool, Verified 04/16/20 10:38 shaking, crying erythromycin base Allergy Rash Verified 05/28/19 18:02 indomethacin Allergy Unknown Verified 05/28/19 18:02 Latex, Natural Rubber Allergy Rash, Verified 04/16/20 10:38 blisters Sulfa (Sulfonamide Allergy Dizziness Verified 05/28/19 18:02 Antibiotics) - MEDICATIONS Home Medications: Ambulatory Orders Medication Instructions Recorded Confirmed Calcium Carb/Vitamin D3/Vit K1 1 cap PO BID 04/14/19 04/19/20 [Viactiv 650 mg-12.5 Mcg Chew] Lactobacillus Acidophilus 1 each PO DAILY 04/16/20 04/19/20 [Probiotic Acidophilus] Multivitamin 1 each PO DAILY 04/16/20 04/19/20 Vitamin B Complex/Folic Acid 0.4 mg PO DAILY 04/16/20 04/19/20 [B-Complex Tablet] Omeprazole 40 mg PO QDAC 04/19/20 04/19/20 Oxycodone HCl/Acetaminophen 1 each PO Q4HR #20 tablet 04/22/20 [Percocet 5-325 mg Tablet] Home Medications Other | Comments: Patient is not to take Meloxicam and Aspirin for 1 week then resume. - PHYSICAL EXAM AT DISCHARGE General Appearance: positive: No acute distress Eyes Bilateral: positive: No lid inflammation, Conjunctivae nml, No scleral ict erus ENT: positive: No signs of dehydration Neck: positive: Trachea midline Respiratory: positive: Chest non-tender, No respiratory distress, Breath sounds nml Cardiovascular: positive: Regular rate & rhythm Abdomen: positive: Nml bowel sounds, Tenderness (Incisional) Skin: positive: Color nml, No rash, Warm, Dry Neurologic/Psychiatric: positive: Oriented x3, Mood/affect nml - LABS Result Diagrams: 04/20/20 05:20 04/20/20 05:20 - QUALITY (Female Hip Fx Only) Was patient sent home on osteoporosis medication?: No - FOLLOW UP Follow Up: 7-10 days with me. Follow up with primary MD in next 3-4 weeks. - TIME SPENT Time Spent in Discharge (Minutes): 45"
[2020-04-22 10:50] VITALS: BP 128/69
== END 2020-04-22 11:25 | disposition home or self-care (01) | DRG 330 ==
LOC: MS2 06:28
PROVIDERS: ADMIT Surgery; ATTEND Surgery
PROC: 00HU33Z Insertion of Infusion Device into Spinal Canal, Percutaneous Approach (ICD-10-PCS; 2020-04-19)
PROC: 3E0R3BZ Introduction of Anesthetic Agent into Spinal Canal, Percutaneous Approach (ICD-10-PCS; 2020-04-19)
PROC: 0DBN0ZZ Excision of Sigmoid Colon, Open Approach (ICD-10-PCS; principal; 2020-04-19 07:30)
DX: K57.20 Diverticulitis of large intestine with perforation and abscess without bleeding (principal); K56.690 Other partial intestinal obstruction; K43.9 Ventral hernia without obstruction or gangrene; R19.5 Other fecal abnormalities; Z86.12 Personal history of poliomyelitis; M41.9 Scoliosis, unspecified; K57.30 Diverticulosis of large intestine without perforation or abscess without bleeding
CPT/HCPCS: 36415; 80053; 82378; 85025; 88307; 97116; 97161; A9270; J0131; J0330; J1170; J2795; J7120

== ENCOUNTER 2020-05-17 13:06 | Emergency (ER) | payer MEDICARE, OTHER ==
--- NOTE | 2020-05-17 13:25 | ED Physician Documentation ---
PD HPI LOWER EXT INJURY - Stated complaint Stated Complaint: LEFT LEG PX - Chief complaint Chief Complaint: Ext Problem - History obtained from History obtained from: Patient - Additional information Additional information: A month out from bowel surgery, for 2 days she has had well localized minor pain to the left medial calf. Of note she has chronic polio with poor muscle tone in the left lower extremity. No history of DVT or PE. No chest pain or trouble breathing. Review of Systems Constitutional: reports: Reviewed and negative Ears: reports: Reviewed and negative Nose: reports: Reviewed and negative Throat: reports: Reviewed and negative PD PAST MEDICAL HISTORY - Past Medical History Cardiovascular: None Respiratory: None Neuro: Peripheral neuropathy Endocrine/Autoimmune: None GI: GERD, Hiatal hernia, C.difficile, Diverticulitis : None HEENT: Chronic vision loss Psych: Depression Musculoskeletal: Osteoarthritis, Scoliosis, Chronic back pain, Other Derm: None - Past Surgical History Past Surgical History: Yes General: Appendectomy, Bowel surgery, Colonoscopy /WOOD GOUGER: Hysterectomy - Present Medications Home Medications: Ambulatory Orders Medication Instructions Recorded Confirmed Calcium Carb/Vitamin D3/Vit K1 1 cap PO BID 04/14/19 04/19/20 [Viactiv 650 mg-12.5 Mcg Chew] Lactobacillus Acidophilus 1 each PO DAILY 04/16/20 04/19/20 [Probiotic Acidophilus] Multivitamin 1 each PO DAILY 04/16/20 04/19/20 Vitamin B Complex/Folic Acid 0.4 mg PO DAILY 04/16/20 04/19/20 [B-Complex Tablet] Omeprazole 40 mg PO QDAC 04/19/20 04/19/20 Oxycodone HCl/Acetaminophen 1 each PO Q4HR #20 tablet 04/22/20 [Percocet 5-325 mg Tablet] - Allergies Allergies/Adverse Reactions: Allergies Allergy/AdvReac Type Severity Reaction Status Date / Time epinephrine Allergy drool, Verified 05/17/20 13:15 shaking, crying erythromycin base Allergy Rash Verified 05/17/20 13:15 indomethacin Allergy Unknown Verified 05/17/20 13:15 Latex, Natural Rubber Allergy Rash, Verified 05/17/20 13:15 blisters Sulfa (Sulfonamide Allergy Dizziness Verified 05/17/20 13:15 Antibiotics) - Social History Does the pt smoke?: No Smoking Status: Never smoker Does the pt drink ETOH?: No Does the pt have substance abuse?: No - Immunizations Immunizations are current?: Yes - POLST Patient has POLST: No PD ED PE NORMAL - Vitals Vital signs reviewed: Yes - General General: Alert and oriented X 3, No acute distress - HEENT HEENT: PERRL, EOMI - Neck Neck: Supple, no meningeal sign, No bony TTP - Extremities Extremities: Other (The left leg is atrophic and in a brace compared to the right. There is mild tenderness of the medial calf without swelling although she states that it feels swollen.) - Neuro Neuro: Alert and oriented X 3, Normal speech Results - Vitals Vitals: Vital Signs - 24 hr 05/17/20 05/17/20 13:10 14:47 Temperature 36.9 C Heart Rate 101 H 80 Respiratory 16 16 Rate Blood Pressure 145/74 H 130/81 H O2 Saturation 100 98 Oxygen O2 Source Room air PD MEDICAL DECISION MAKING - ED course ED course: 75-year-old woman with history of polio presents with postsurgical left leg pain. No evidence of DVT on ultrasound. Departure - Departure Disposition: 01 Home, Self Care Clinical Impression: Pain in extremity Qualifiers: Extremity pain location: lower extremity Laterality: left Qualified Code(s): M79.605 - Pain in left leg Condition: Good Record reviewed to determine appropriate education?: Yes Instructions: ED Acute Pain [facility] Comments: No sign of DVT in the left leg. Return for new or worsening symptoms. Tylenol as needed for the pain. Discharge Date/Time: 05/17/20 14:59
[2020-05-17 14:48] VITALS: BP 130/81
--- NOTE | 2020-05-17 14:53 | Ultrasound Report ---
PROCEDURE: Duplex Ext Veins Left INDICATIONS: LLE Pain TECHNIQUE: Real-time imaging, as well as color and pulse Doppler interrogation, were performed of the lower extr emity deep veins from the inguinal ligament to the popliteal fossa. COMPARISON: 04/20/2019 and prior extremity venous ultrasound reviewed. FINDINGS: The deep veins are normally compressible, and free of intraluminal thrombus. Color and pu lse Doppler demonstrate normal phasic intraluminal flow. There is normal augmentation response to di stal compression maneuver. 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 No new DVT has developed, either occlusive or nonocclusive. Reviewed by: Ru Bro MD on 05/17/2020 2:52 PM PST Approved by: Ru Bro MD on 05/17/2020 2:52 PM PST Station ID: [id number]
== END 2020-05-17 14:59 | disposition home or self-care (01) ==
LOC: ED 13:06 → SUPCPDRO 13:06 → ED 14:59
DX: M79.662 Pain in left lower leg (principal); Z98.890 Other specified postprocedural states; M62.562 Muscle wasting and atrophy, not elsewhere classified, left lower leg; B91 Sequelae of poliomyelitis; G62.9 Polyneuropathy, unspecified
CPT/HCPCS: 99283; 99284

== ENCOUNTER 2023-01-31 18:50 | Outpatient (CLI) | payer MEDICARE, OTHER | END 2023-01-31 18:51 | disposition critical access hospital (66) | LOC: EMS 18:50 | DX: R10.12 Left upper quadrant pain (principal); R42 Dizziness and giddiness; R19.8 Other specified symptoms and signs involving the digestive system and abdomen | CPT/HCPCS: A0425; A0427 ==

== ENCOUNTER 2023-01-31 19:20 | Inpatient (IN) | payer MEDICARE, OTHER ==
[2023-01-31] MEDS ORDERED: SODIUM CHLORIDE 0.9% 1,000 ML IV STA (20:00)
[2023-01-31] MEDS ORDERED: MORPHINE 2 MG/ML CARPUJECT IVP STA (20:00)
[2023-01-31] MEDS ORDERED: ONDANSETRON 4 MG/2 ML VIAL IVP STA (20:00)
--- NOTE | 2023-01-31 20:03 | ED Physician Documentation ---
History of Present Illness - Stated complaint Stated Complaint: ABD PAIN, DIZZY - Chief complaint Chief Complaint: Abd Pain - Additonal information Additional information: Patient 78-year-old female presenting to the emergency department with chief complaint abdominal pain. Endorses for history of chronic back pain, recent spinal injection 3 weeks ago as well as a history of diverticulitis with perforation and requiring subtotal colectomy in 2019. Cramping mid abdominal pain that began earlier today. 1 small hard bowel movement earlier today but otherwise constipation for the last few days. No associated nausea vomiting. No associated fever. Review of Systems Constitutional: denies: Fever Eyes: denies: Loss of vision Ears: denies: Loss of hearing Nose: denies: Rhinorrhea / runny nose Throat: denies: Dental pain / toothache Cardiac: denies: Chest pain / pressure Respiratory: denies: Dyspnea GI: reports: Abdominal Pain, Constipation. 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 - Present Medications Home Medications: Ambulatory Orders Medication Instructions Recorded Confirmed Omeprazole 40 mg PO QDAC 04/19/20 01/31/23 Meloxicam [Mobic] 15 mg PO DAILY 01/31/23 01/31/23 - Allergies Allergies/Adverse Reactions: Allergies Allergy/AdvReac Type Severity Reaction Status Date / Time epinephrine Allergy drool, Verified 01/31/23 19:29 shaking, crying erythromycin base Allergy Rash Verified 01/31/23 19:29 indomethacin Allergy Unknown Verified 01/31/23 19:29 Latex, Natural Rubber Allergy Rash, Verified 01/31/23 19:29 blisters Sulfa (Sulfonamide Allergy Dizziness Verified 01/31/23 19:29 Antibiotics) - Social History Does the pt smoke?: No Smoking Status: Never smoker Does the pt drink ETOH?: No Does the pt have substance abuse?: No - Immunizations Immunizations are current?: Yes - POLST Patient has POLST: No PD ED PE NORMAL - Vitals Vital signs reviewed: Yes (Within normal limits) - General General: Alert and oriented X 3, No acute distress - HEENT HEENT: Atraumatic - Neck Neck: Supple, no meningeal sign - Cardiac Cardiac: RRR - Respiratory Respiratory: No respiratory distress - Abdomen Abdomen: Other (Tender with left lower quadrant guarding) Results - Vitals Vitals: Vital Signs - 24 hr 01/31/23 01/31/23 19:29 23:00 Temperature 36.6 C Heart Rate 68 92 Respiratory 16 16 Rate Blood Pressure 145/74 H 130/74 O2 Saturation 98 98 Oxygen O2 Source Room air - Labs Labs: Laboratory Tests 01/31/23 01/31/23 01/31/23 20:10 20:10 20:10 WBC 11.4 H RBC 4.96 Hgb 14.6 Hct 46.4 MCV 93.5 MCH 29.4 MCHC 31.5 L RDW 12.6 Plt Count 213 MPV 10.9 H Neut # (Auto) 9.6 H Lymph # (Auto) 0.8 L [place] # (Auto) 0.7 Eos # (Auto) 0.2 Baso # (Auto) 0.1 Absolute Nucleated RBC 0.00 Nucleated RBC % 0.0 Sodium 141 Potassium 3.4 L Chloride 100 L Carbon Dioxide 29 Anion Gap 12.0 BUN 31 H Creatinine 0.6 Estimated GFR (MDRD) 97 Glucose 109 H Lactic Acid 2.7 H Calcium 11.2 H Total Bilirubin 0.6 AST 19 ALT 12 Alkaline Phosphatase 71 Total Protein 6.9 Albumin 4.5 Globulin 2.4 Albumin/Globulin Ratio 1.9 Lipase 7 L Urine Color Urine Clarity Urine pH Ur Specific [place] Urine Protein Urine Glucose (UA) Urine Ketones Urine Occult Blood Urine Nitrite Urine Bilirubin Urine Urobilinogen Ur Leukocyte Esterase Ur Microscopic Review Urine Culture Comments 01/31/23 21:14 WBC RBC Hgb Hct MCV MCH MCHC RDW Plt Count MPV Neut # (Auto) Lymph # (Auto) [place] # (Auto) Eos # (Auto) Baso # (Auto) Absolute Nucleated RBC Nucleated RBC % Sodium Potassium Chloride Carbon Dioxide Anion Gap BUN Creatinine Estimated GFR (MDRD) Glucose Lactic Acid Calcium Total Bilirubin AST ALT Alkaline Phosphatase Total Protein Albumin Globulin Albumin/Globulin Ratio Lipase Urine Color YELLOW Urine Clarity CLEAR Urine pH 8.5 H Ur Specific [place] 1.010 Urine Protein NEGATIVE Urine Glucose (UA) NEGATIVE Urine Ketones TRACE Urine Occult Blood NEGATIVE Urine Nitrite NEGATIVE Urine Bilirubin NEGATIVE Urine Urobilinogen 0.2 (NORMAL) Ur Leukocyte Esterase NEGATIVE Ur Microscopic Review NOT INDICATED Urine Culture Comments NOT INDICATED PD Medical Decision Making - ED course Complexity details: reviewed results, re-evaluated patient, d/w patient, d/w credit consultant ED course: Patient 78-year-old female presenting with abdominal pain, constipation. Afebrile, hematin stable. Generalized tenderness without guarding, rebound, rigidity or indications of peritonitis. Labs obtained demonstrate mild leukocytosis minimal elevation lactic acid. CT abdomen pelvis shows bowel obstruction. Patient given medication for pain control. NG tube ordered. Discussed with surgery, Dr. Garcia who recommends admission under the hospitalist service. Subsequently discussed with the telehospitalist service who graciously agrees to admit the patient. Departure - Departure Disposition: [facility] DC/Xfer Clinical Impression: SBO (small bowel obstruction) Discharge Date/Time: 02/01/23 01:17
[2023-01-31 20:26] LABS: BASOPHILS # (AUTO) 0.1 10^3/uL (0.0-0.1); BASOPHILS % (AUTO) 0.5 %; EOSINOPHILS # (AUTO) 0.2 10^3/uL (0.0-0.7); EOSINOPHILS % (AUTO) 1.8 %; HCT - HEMATOCRIT 46.4 % (37.0-47.0); HGB - HEMOGLOBIN 14.6 g/dL (12.0-16.0); LYMPHOCYTES # (AUTO) 0.8 10^3/uL (1.5-3.5); LYMPHOCYTES % (AUTO) 6.6 %; MEAN CORPUSCULAR HEMOGLOBIN 29.4 pg (27.0-31.0); MEAN CORPUSCULAR HGB CONC 31.5 g/dL (32.0-36.0); MEAN CORPUSCULAR VOLUME 93.5 fL (81.0-99.0); MEAN PLATELET VOLUME 10.9 fL (7.9-10.8); MONOCYTES # (AUTO) 0.7 10^3/uL (0.0-1.0); MONOCYTES % (AUTO) 5.7 %; NEUTROPHILS # (AUTO) 9.6 10^3/uL (1.5-6.6); NEUTROPHILS % (AUTO) 84.9 %; PLT - PLATELET COUNT 213 10^3/uL (130-450); RED BLOOD COUNT 4.96 10^6/uL (4.20-5.40); RED CELL DISTRIBUTION WIDTH 12.6 % (12.0-15.0); WHITE BLOOD COUNT 11.4 x10^3/uL (4.8-10.8)
[2023-01-31 20:34] LABS: ALBUMIN 4.5 g/dL (3.2-5.5); ALBUMIN/GLOBULIN RATIO 1.9 (1.0-2.2); BILIRUBIN,TOTAL 0.6 mg/dL (0.2-1.0); CALCIUM 11.2 mg/dL (8.5-10.3); CREATININE 0.6 mg/dL (0.6-1.3); POTASSIUM 3.4 mmol/L (3.5-4.5); TOTAL PROTEIN 6.9 g/dL (6.4-8.9)
[2023-01-31 21:19] LABS: BILIRUBIN,URINE NEGATIVE (NEGATIVE); GLUCOSE, URINE (UA) NEGATIVE (NEGATIVE); KETONES,URINE (UA) TRACE mg/dL (NEGATIVE); LEUKOCYTE ESTERASE, URINE NEGATIVE (NEGATIVE); NITRITE,URINE NEGATIVE (NEGATIVE); OCCULT BLOOD,URINE NEGATIVE (NEGATIVE); PH,URINE 8.5 PH (5.0-7.5); PROTEIN,URINE NEGATIVE (NEGATIVE); UROBILINOGEN,URINE 0.2 (NORMAL) E.U./dL (NORMAL)
[2023-01-31 21:21] LABS: CLARITY,URINE CLEAR (CLEAR)
[2023-01-31] MEDS ORDERED: MIDAZOLAM 2 MG/2 ML VIAL IVP STA (22:12)
[2023-01-31] MEDS ORDERED: iohexoL-300 100 ML VIAL IVP ONE (22:33)
--- NOTE | 2023-01-31 23:14 | CT Report ---
PROCEDURE: ABDOMEN/PELVIS W INDICATIONS: abd pain CONTRAST: 100 ML OMNI 300 TECHNIQUE: After the administration of intravenous contrast, 5 mm thick sections acquired from the diaphragms to the symphysis. 5 mm thick coronal and sagittal reformats were acquired. For radiation dose reducti on, the following was used: automated exposure control, adjustment of mA and/or kV according to clarence ent size. COMPARISON: 04/21/2019 FINDINGS: Image quality: Excellent. Lung bases:There is atelectasis and scarring in the lung bases, left greater than right. Heart: Heart is normal in size. There is a large hiatal hernia redemonstrated. ABDOMEN: Liver: No mass lesion. Gallbladder: Within normal limits without calcified gallstones. Biliary ducts: No biliary ductal dilatation. Pancreas: Unremarkable. Spleen: Normal in size. Adrenal Glands: No adrenal nodules. Kidneys and Ureters: No hydronephrosis. Stomach and Bowel:There are mildly dilated loops of small bowel with air-fluid levels, measuring up to 3.4 cm. There is a transition point in the left lower quadrant in the region of the inguinal fossa where there is associated small bowel fecalization, as seen on coronal series 5 image 26, sagittal s eries 6 image 20, and axial series 2 image 71. More distal loops of small bowel are nondistended. Fin dings are consistent with a small bowel ejection. A duodenal diverticulum is noted. No pericecal infl ammatory changes to suggest appendicitis. The colon is normal in caliber and wall thickness. Surgical sutures are noted in the sigmoid colon. Peritoneum:There is a small amount of free fluid in the left lower quadrant which is likely reactive . No free air. Ventral Wall: No hernia. Abdominal Nodes: No retroperitoneal or mesenteric adenopathy by size criteria. Vessels: Aorta and inferior vena cava are normal in size. PELVIS: Pelvic Organs: Unremarkable. Bladder: Unremarkable. Pelvic Nodes: No enlarged lymph nodes. Miscellaneous: No inguinal hernias. Bones: There is an S-shaped scoliosis of the thoracolumbar spine redemonstrated. Visualized osseous s tructures demonstrate no suspicious lesions. IMPRESSION: 1. Small bowel obstruction with a transition point in the left lower quadrant as described. 2. Small amount of free fluid in the left lower quadrant is likely reactive. Reviewed by: Hugo Morris MD on 01/31/2023 11:13 PM PDT Approved by: Hugo Morris MD on 01/31/2023 11:13 PM PDT Station ID: [id number]
[2023-02-01] MEDS ORDERED: LIDOCAINE JELLY 2% 6 ML JEL.PF.APP TOP STA
[2023-02-01] MEDS ORDERED: LORazepam 2 MG/ML VIAL IVP STA (00:02)
[2023-02-01] MEDS ORDERED: PROCHLORPERAZINE 10 MG/2 ML VIAL IVP PRN (00:04)
[2023-02-01] MEDS ORDERED: SODIUM CHLORIDE FLUSH 0.9% 10 ML SYRINGE IVP PRN (00:04)
[2023-02-01] MEDS ORDERED: MORPHINE 2 MG/ML CARPUJECT IVP PRN (00:04)
[2023-02-01] MEDS ORDERED: LIDOCAINE PATCH 5% TOP STA (00:07)
--- NOTE | 2023-02-01 00:16 | HISTORY & PHYSICAL EXAMINATION ---
Chief Complaint - Chief Complaint Chief Complaint: Abdo pain History of Present Illness - Admitted From Admitted From:: ER - History Obtained From Records Reviewed: Yes History obtained from: Patient, chart, staff Exam Limitations: Virtual exam - History of Present Illness HPI Comment/Other: H&P was conducted via video remotely, using Access Cart. [place] is in [place]. Physician is in [place]. No one is at bedside. 78 yo F with PMH of Polio, GERD, Severe Diverticulosis, Colonic stricture s/p colonic resection 2019, Chronic LBP, Laryngeal spasms, and Anxiety presented to the with c/o 1 day h/o abdominal pain, Dizziness. Pt began to have worse LBP on 01/18/23 after doing upper arm exercises. She has been taking Alleve and Tylenol regularly since then. She went to see her doctor on , who prescribed muscle relaxants; she started these that night. Ever since her colonic resection in 2019, her BMs have been regular, 2x/day, normal. Pt took the muscle relaxants x 2 days, then stopped them b/c she had not had any BMs x 2 days, her BP had decreased, and her mouth felt dry. Today, around 3P, she began to have abdominal fullness/discomfort/gas around her belly button. She went to the bathroom and strained until she was able to have a small, hard BM. This made her LBP worse. She then felt dizzy, so she called her and he called EMS. The dizziness resolved spontaneously after a few minutes. The abdominal pain persisted. No radiation. +nausea, no vomiting. No F/C. No urinary symptoms. No CP/SOB/cough. In the ER, K 3.4, LA 2.7, WBC 11.4, U/A neg CT Abdo: SBO LLQ, free fluid Pt was given IVF, Zofran, Morphine 4 mg IV, Versed in the ER. NGT ordered to be placed. ER Physician consulted Dr. Garcia, General Surgery and they will consult in AM. 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 She reports no other family history. Social History Notes: She has lived on [facility] for less than one year. She previously lived in [place], [place]. She retired about 20 years ago. 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 She reports no alcohol or smoking. - Substance History Use: Uses substance without health or social issues: NONE - POLST Patient has POLST: No Meds/Allgy - Home Medications Home Medications: Ambulatory Orders Medication Instructions Recorded Confirmed Omeprazole 40 mg PO QDAC 04/19/20 01/31/23 Meloxicam [Mobic] 15 mg PO DAILY 01/31/23 01/31/23 - Allergies Allergies/Adverse Reactions: Allergies Allergy/AdvReac Type Severity Reaction Status Date / Time epinephrine Allergy drool, Verified 01/31/23 19:29 shaking, crying erythromycin base Allergy Rash Verified 01/31/23 19:29 indomethacin Allergy Unknown Verified 01/31/23 19:29 Latex, Natural Rubber Allergy Rash, Verified 01/31/23 19:29 blisters Sulfa (Sulfonamide Allergy Dizziness Verified 01/31/23 19:29 Antibiotics) Review of Systems - All Other Systems All Other Systems: reports: Reviewed and negative Exam - Vital Signs Reviewed Vital Signs: Yes Vital Signs: Vital Signs x48h Temp Pulse Resp BP Pulse Ox 01/31/23 23:00 92 16 130/74 98 01/31/23 19:29 36.6 C 68 16 145/74 H 98 - Physical Exam General Appearance: positive: No acute distress, Alert Eyes Bilateral: positive: EOMI, No scleral icterus Respiratory: positive: Other ( Access cart stethoscope not working; per ER Provider: CTA B/L) Cardiovascular: positive: Other (Access cart stethoscope not working; per ER Provider: RRR, no murmurs) Abdomen: positive: Other (per ER Provider: non-distended, Soft, mildly TTP LLQ, no R/G) Neurologic/Psychiatric: positive: Oriented x3, CN's nml (2-12), Mood/affect nml Conclusion/Plan - Problem List (1) SBO (small bowel obstruction) Conclusion/Plan: SBO Abdominal Pain Leukocytosis Lactic Acidosis Severe Diverticulosis Colonic stricture s/p colonic resection 2019 -LA 2.7, WBC 11.4, U/A neg -CT Abdo: SBO LLQ, free fluid -Pt was given IVF, Zofran, Morphine 4 mg IV, Versed in the ER. NGT ordered to be placed. -ER Physician consulted Dr. Garcia, General Surgery and they will consult in AM. -admit to Med/Surg -NPO -continue NGT to LIS -IVF -anti-emetics, pain control -trend LA, WBC -mgmt per General Surgery Hypokalemia -K 3.4 -supplement now and PRN GERD -continue home medications: PPI; change to IV Chronic LBP -pt with recent SEs from muscle relaxants; would avoid -Lidoderm patch ordered H/o Polio Laryngeal spasms Anxiety -supportive care VTE Prophylaxis: SCDs only d/t possible need for Surgery Code Status: D/W pt; she is Full Code ~Viviana Anguiano MD Hospitalist - Lab Results Lab results reviewed: Yes Fish Bones: 01/31/23 20:10 01/31/23 20:10
[2023-02-01] MEDS ORDERED: POTASSIUM CHLOR 10 MEQ/100 ML 10 MEQ/100 ML BAG IV ONE (00:44)
[2023-02-01] MEDS: SODIUM CHLORIDE FLUSH 0.9% 10 ML SYRINGE IVP SCH ×3 (01:29→15:52)
[2023-02-01] MEDS: LACTATED RINGERS 1,000 ML IV SCH ×3 (01:30→21:38)
[2023-02-01] MEDS: ONDANSETRON 4 MG/2 ML VIAL IVP PRN ×2 (01:40→09:01)
--- NOTE | 2023-02-01 02:31 | XRAY Report ---
PROCEDURE: Chest for Line Placement INDICATIONS: for post NG tube placement TECHNIQUE: One view of the chest was acquired. COMPARISON: Chest x-ray 04/20/2019. CT abdomen pelvis 01/31/2023. FINDINGS: Surgical changes and devices: There is a nasogastric tube which appears coiled in the stomach within a large hiatal hernia. Lungs and pleura: There is mild blunting of the left costophrenic angle suggestive of a small pleura l effusion. Mild linear left basilar atelectasis redemonstrated. No acute consolidation. Mediastinum: Mediastinal contours appear unchanged. Heart size is normal. Bones and chest wall: No suspicious bony lesions. Overlying soft tissues appear unremarkable. IMPRESSION: 1. Nasogastric tube coiled in the stomach within a large hiatal hernia. Reviewed by: Hugo Morris MD on 02/01/2023 2:30 AM PDT Approved by: Hugo Morris MD on 02/01/2023 2:30 AM PDT Station ID: [id number]
[2023-02-01 06:04] LABS: BASOPHILS % (AUTO) 0.3 %; EOSINOPHILS % (AUTO) 0.2 %; HCT - HEMATOCRIT 43.2 % (37.0-47.0); HGB - HEMOGLOBIN 13.9 g/dL (12.0-16.0); LYMPHOCYTES # (AUTO) 0.4 10^3/uL (1.5-3.5); LYMPHOCYTES % (AUTO) 3.5 %; MEAN CORPUSCULAR HEMOGLOBIN 29.3 pg (27.0-31.0); MEAN CORPUSCULAR HGB CONC 32.2 g/dL (32.0-36.0); MEAN CORPUSCULAR VOLUME 91.1 fL (81.0-99.0); MEAN PLATELET VOLUME 10.9 fL (7.9-10.8); MONOCYTES # (AUTO) 0.6 10^3/uL (0.0-1.0); MONOCYTES % (AUTO) 5.7 %; NEUTROPHILS # (AUTO) 9.3 10^3/uL (1.5-6.6); NEUTROPHILS % (AUTO) 89.7 %; PLT - PLATELET COUNT 193 10^3/uL (130-450); RED BLOOD COUNT 4.74 10^6/uL (4.20-5.40); RED CELL DISTRIBUTION WIDTH 12.7 % (12.0-15.0); WHITE BLOOD COUNT 10.4 x10^3/uL (4.8-10.8)
[2023-02-01 06:19] LABS: ALBUMIN 4.2 g/dL (3.2-5.5); BILIRUBIN,TOTAL 0.7 mg/dL (0.2-1.0); CALCIUM 10.6 mg/dL (8.5-10.3); CREATININE 0.5 mg/dL (0.6-1.3); POTASSIUM 4.3 mmol/L (3.5-4.5); TOTAL PROTEIN 6.3 g/dL (6.4-8.9)
--- NOTE | 2023-02-01 06:42 | XRAY Report ---
PROCEDURE: Chest for Line Placement INDICATIONS: NGT placement TECHNIQUE: One view of the chest was acquired. COMPARISON: Chest x-ray, 02/01/2023. FINDINGS: Surgical changes and devices: None. Lungs and pleura: No pleural effusions or pneumothorax. Lungs are clear. There is a nasogastric tub e with the tip in stomach. Mediastinum: Mediastinal contours appear normal. Heart size is normal. Heart had a hernia. Bones and chest wall: No suspicious bony lesions. Overlying soft tissues appear unremarkable. IMPRESSION: 1. The nasogastric tube tip is in the stomach within a large hernia. Findings are concordant with preliminary interpretation provided by [facility]. Reviewed by: Loraine Farris MD on 02/01/2023 6:41 AM PDT Approved by: Loraine Farris MD on 02/01/2023 6:41 AM PDT Station ID: [id number]
--- NOTE | 2023-02-01 08:15 | CONSULTATION NOTE ---
Surgery Consult - Admit Date Hospital Admission Date: 02/01/23 - Consult Date Consult Date: 02/01/23 Requesting Provider: Bjorn - Chief Complaint Chief Complaint: SBO - Home Meds/Allergies Home Medications: Patient History Medication Instructions Recorded Confirmed Omeprazole 40 mg PO QDAC 04/19/20 01/31/23 Meloxicam [Mobic] 15 mg PO DAILY 01/31/23 01/31/23 Allergies/Adverse Reactions: Allergies Allergy/AdvReac Type Severity Reaction Status Date / Time epinephrine Allergy drool, Verified 01/31/23 19:29 shaking, crying erythromycin base Allergy Rash Verified 01/31/23 19:29 indomethacin Allergy Unknown Verified 01/31/23 19:29 Latex, Natural Rubber Allergy Rash, Verified 01/31/23 19:29 blisters Sulfa (Sulfonamide Allergy Dizziness Verified 01/31/23 19:29 Antibiotics) - Vital Signs Vital Signs: Last Vital Signs Temp 97.3 F L 02/01/23 01:35 Pulse 101 H 02/01/23 01:35 Resp 16 02/01/23 01:35 BP 124/77 02/01/23 01:35 Pulse Ox 98 02/01/23 01:35 O2 Flow Rate Intake & Output: Intake & Output 01/29/23 01/30/23 01/31/23 02/01/23 23:59 23:59 23:59 23:59 Intake Total 1000 100 Output Total 250 Balance 1000 -150 - Lab Results Result Diagrams: 02/01/23 05:57 02/01/23 05:57 - Consultation Note Consultation Note: General Surgery Consultation Note Assessment: 1) SBO, partial vs complete. No evidence of intestinal ischemia at this time. This is likely due to adhesions. Fecalization of the small bowel in the LLQ on CT is of concern and may indicate a chronic area of narrowing that worsened over the weekend. 2) Hiatal hernia - NGT is above diaphragm but the drainage tube should still serve it's purpose once it is attached to LIS as there is no gastric obstruction related to the hernia 3) History of sigmoid colectomy for diverticular disease 4) Left back muscle spasm from exercise last week 5) History of polio with severe scoliosis Recommendation: 1) NGT to LIS 2) Ketorolac 30 mg IV Q 6 hrs for 5 doses; This will decrease SB inflammation and may help with her back discomfort. 3) IV MS or Dilaudid as needed for severe pain 4) Ambulate 5) SB Challenge study to begin this morning 6) Exploratory laparotomy if she develops signs or symptoms of bowel ischemia or perforation or if she fails to improve with medical management 7) Add Lovenox to her VTEP therapy <><><><><><><><><><> Reason for Consultation SBO with NGT in Hiatal hernia Chief Complaint Abdominal pain HPI Clarita is a 78 year old female who after exercising last week developed left back pain. It persisted and she saw a back specialist who recommended muscle relaxants and strict bed rest. Over the weekend she became constipated and developed mild right abdominal discomfort and bloating. She was able to strain enough to force a small bowel movement yesterday but this dis not relieve her abdominal pain and bloating. She came to the ED yesterday evening and an NGT was placed but not connected to LIS since not was coiled in her hiatal hernia. Today she feels a little better. She has had no emesis but is somewhat nauseated. She has continued abdominal bloating and discomfort but this is improved from admission. She has no history of GERD. Up until this weekend, she has had normal bowel motions. Past Medical History Scoliosis Polio Perforated sigmoid diverticulitis History of C. Diff 2019 Past Surgical History 2018 - Exploratory laparotomy with washout for perforated diverticulitis/sepsis 2019 - Appendectomy 2019 - Sigmoid colectomy Section Colonoscopy before and after the 2020 colectomy. She tells me that the post- procedure colonoscopy require balloon dilation although I do not have access to that report. Family History MV disease in mother Social History Denies smoking or drinking; [place] illicit drug use[place] Medications See list Allergies See Allergy section of this consultation ROS Pertinent positives left back pain; abdominal bloating; Constipation and now obstipation; Abdominal pain; Nausea All other reviewed systems negative Physical Examination Vital Signs: See VS section of this consultation BMI: 23 GENERAL APPEARANCE: Normal development, normal body habitus, normal grooming PSYCHIATRIC: AAO; Comfortable; In NAD EYES: Pupils equal, round and reactive to light, sclera anicteric EARS, NOSE, MOUTH, THROAT: Hearing normal, Oral mucous membranes moist and without lesions; NGT in place and clamped NECK: No crepitus, lymphadenopathy, or thyromegaly LUNGS: Clear to auscultation without wheezing; No use of accessory muscles to breathe CARDIOVASCULAR: Heart-NSR without murmurs; Palpable carotid arteries - no bruits; Aorta, Femoral, Pedal pulses palpable; Peripheral edema absent ABD: Soft, mild distension with no peritoneal findings; Minimal tenderness to palpation in RLQ; No LLQ tenderness; Midline surgical incision well healed; Few BS GROIN: No evidence of an inguinal or femoral hernia LYMPHATIC: Neck, Axillae, Groin No palpable adenopathy EXTREMITIES: No clubbing, cyanosis, infections SKIN: Anicteric; No rashes, lesions, Ulcerations Labs See lab data section of this consultation Antibiotics: None VTEP: SCD Imaging CT Abd/Pelvis - Dilated small bowel until fecalization in LLQ followed by normal small bowel to cecum. Air and stool seen in colon. Sliding hiatal hernia with a significant portion of the stomach above the diaphragm. Very redundant transverse colon. KUB - NGT above diaphragm All images were personally reviewed by me for this encounter. Sebastian Bennett MD, FACS General Surgery Service [phone]
--- NOTE | 2023-02-01 08:50 | PHARMACY PROGRESS NOTE ---
- Best Possible Medication History Admit Date and Time: 02/01/23 0004 Processed by: Nursing Medication History completed: Yes As the person ultimately responsible for medication therapy, providers are able to order a medication from an existing home medication list in [facility] via the "Reconcile Routine" prior to Confirmation of that medication by it technical support specialist. Such practice is discouraged except when the physician, in their clinical judgment, deems that a medical need exists for a medication without regard to previous use.
[2023-02-01] MEDS: PANTOPRAZOLE 40 MG VIAL IV SCH (09:00)
[2023-02-01] MEDS ORDERED: DIATR MEGLU/DIATRIZOATE SODIUM 120 ML BOTTLE ONE (09:25)
[2023-02-01] MEDS: KETOROLAC 30 MG/ML VIAL IVP SCH ×3 (11:29→21:37)
[2023-02-01] MEDS: ENOXAPARIN 40 MG/0.4 ML SYRINGE SUBQ SCH (11:29)
--- NOTE | 2023-02-01 13:20 | PROVIDER PROGRESS NOTE ---
Assessment/Plan - Problem List (1) SBO (small bowel obstruction) Assessment/Plan: Plan: Pain meds as needed Antiemetics as needed ng to low suction Gastrografin challenge today, clamping ng during that iv fluids for hydration, cont LR Appreciate general surgery input, following along in case she needs surgery I updated the at bedside today regarding the plan - Current Meds Current Meds: Current Medications Generic Name Dose Route Start Last Admin Trade Name Freq PRN Reason Stop Dose Admin Enoxaparin Sodium 40 mg 02/01/23 09:28 02/01/23 11:29 Enoxaparin 40 Mg/0.4 Ml Syringe SUBQ 40 mg DAILY JOSÉ MIGUEL Administration Lactated Ringer's 1,000 mls @ 100 mls/hr 02/01/23 01:00 02/01/23 11:30 Lr IV Infused .Q10H JOSÉ MIGUEL Infusion Ketorolac Tromethamine 30 mg 02/01/23 10:00 02/01/23 11:29 Ketorolac 30 Mg/Ml Vial IVP 02/02/23 10:01 30 mg Q6H JOSÉ MIGUEL Administration Morphine Sulfate 2 mg 02/01/23 00:04 02/01/23 01:29 Morphine 2 Mg/Ml Carpuject IVP 2 mg Q4H PRN Administration Pain 8 to 10 Ondansetron HCl 4 mg 02/01/23 00:04 02/01/23 09:01 Ondansetron 4 Mg/2 Ml Vial IVP 4 mg Q6HR PRN Administration Nausea / Vomiting Pantoprazole Sodium 40 mg 02/01/23 09:00 02/01/23 09:00 Pantoprazole 40 Mg Vial IV 40 mg DAILY JOSÉ MIGUEL Administration Prochlorperazine Edisylate 10 mg 02/01/23 00:04 02/01/23 11:30 Prochlorperazine 10 Mg/2 Ml Vial IVP 10 mg Q6HR PRN Administration Nausea / Vomiting Sodium Chloride 10 ml 02/01/23 01:00 02/01/23 09:01 Sodium Chloride Flush 0.9% 10 Ml Syringe IVP 10 ml 0100,0900,1700 JOSÉ MIGUEL Administration - Lab Result Fish Bone Diagrams: 02/01/23 05:57 02/01/23 05:57 - Additional Planning My Orders: My Active Orders 02/01/23 General Surgery Consult [CONS] Routine Evaluate and Treat PT [PT] Routine 02/01/23 09:28 Enoxaparin [Lovenox] 40 mg SUBQ DAILY Subjective - Subjective Patient Reports: Dizzines, Nausea, Pain, Other (Not passing gas.) Objective Vital Signs: Vital Signs - 24 hr 01/31/23 01/31/23 02/01/23 19:29 23:00 00:59 Temperature 36.6 C Heart Rate 68 92 102 H Heart Rate [ Brachial] Respiratory 16 16 16 Rate Blood Pressure 145/74 H 130/74 147/97 H Blood Pressure [Right Brachial artery] O2 Saturation 98 98 94 02/01/23 02/01/23 01:35 08:00 Temperature 36.3 C L 36.6 C Heart Rate Heart Rate [ 101 H 86 Brachial] Respiratory 16 17 Rate Blood Pressure Blood Pressure 124/77 123/74 [Right Brachial artery] O2 Saturation 98 96 Oxygen O2 Source Room air I&O (Last 24 Hrs): Intake and Output Totals x24h 01/30/23 01/31/23 02/01/23 23:59 23:59 23:59 Intake Total 1000 1100 Output Total 250 Balance 1000 850 General: Alert, Oriented x3 HEENT: Mucous membr. moist/pink, Other (Has NG tube currently clamped since she just got Gastrografin, is wretching.) Neck: No JVD Neuro: Alert, Non Focal Respiratory: No respiratory distress Abdomen: Other (Soft, mildly tender in the right mid abdomen, no guarding or rebound, but no bowel sounds) - Results Results: Laboratory Results WBC 10.4 x10^3/uL (4.8-10.8) 02/01/23 05:57 RBC 4.74 10^6/uL (4.20-5.40) 02/01/23 05:57 Hgb 13.9 g/dL (12.0-16.0) 02/01/23 05:57 Hct 43.2 % (37.0-47.0) 02/01/23 05:57 MCV 91.1 fL (81.0-99.0) 02/01/23 05:57 MCH 29.3 pg (27.0-31.0) 02/01/23 05:57 MCHC 32.2 g/dL (32.0-36.0) 02/01/23 05:57 RDW 12.7 % (12.0-15.0) 02/01/23 05:57 Plt Count 193 10^3/uL (130-450) 02/01/23 05:57 MPV 10.9 fL (7.9-10.8) H 02/01/23 05:57 Neut # (Auto) 9.3 10^3/uL (1.5-6.6) H 02/01/23 05:57 Lymph # (Auto) 0.4 10^3/uL (1.5-3.5) L 02/01/23 05:57 Andrews # (Auto) 0.6 10^3/uL (0.0-1.0) 02/01/23 05:57 Eos # (Auto) 0.0 10^3/uL (0.0-0.7) 02/01/23 05:57 Baso # (Auto) 0.0 10^3/uL (0.0-0.1) 02/01/23 05:57 Absolute Nucleated RBC 0.00 x10^3/uL 02/01/23 05:57 Nucleated RBC % 0.0 /100WBC 02/01/23 05:57 Sodium 141 mmol/L (135-145) 02/01/23 05:57 Potassium 4.3 mmol/L (3.5-4.5) 02/01/23 05:57 Chloride 102 mmol/L (101-111) 02/01/23 05:57 Carbon Dioxide 31 mmol/L (21-32) 02/01/23 05:57 Anion Gap 8.0 (6-13) 02/01/23 05:57 BUN 27 mg/dL (6-20) H 02/01/23 05:57 Creatinine 0.5 mg/dL (0.6-1.3) L 02/01/23 05:57 Estimated GFR (MDRD) 120 (>89) 02/01/23 05:57 Glucose 142 mg/dL (74-104) H 02/01/23 05:57 Lactic Acid 0.9 mmol/L (0.5-2.2) 02/01/23 05:57 Calcium 10.6 mg/dL (8.5-10.3) H 02/01/23 05:57 Total Bilirubin 0.7 mg/dL (0.2-1.0) 02/01/23 05:57 AST 19 IU/L (10-42) 02/01/23 05:57 ALT 12 IU/L (10-60) 02/01/23 05:57 Alkaline Phosphatase 64 IU/L (42-121) 02/01/23 05:57 Total Protein 6.3 g/dL (6.4-8.9) L 02/01/23 05:57 Albumin 4.2 g/dL (3.2-5.5) 02/01/23 05:57 Globulin 2.1 g/dL (2.1-4.2) 02/01/23 05:57 Albumin/Globulin Ratio 2.0 (1.0-2.2) 02/01/23 05:57 Lipase 7 U/L (11-82) L 01/31/23 20:10 Urine Color YELLOW 01/31/23 21:14 Urine Clarity CLEAR (CLEAR) 01/31/23 21:14 Urine pH 8.5 PH (5.0-7.5) H 01/31/23 21:14 Ur Specific Mobile 1.010 (1.002-1.030) 01/31/23 21:14 Urine Protein NEGATIVE mg/dL (NEGATIVE) 01/31/23 21:14 Urine Glucose (UA) NEGATIVE mg/dL (NEGATIVE) 01/31/23 21:14 Urine Ketones TRACE mg/dL (NEGATIVE) 01/31/23 21:14 Urine Occult Blood NEGATIVE (NEGATIVE) 01/31/23 21:14 Urine Nitrite NEGATIVE (NEGATIVE) 01/31/23 21:14 Urine Bilirubin NEGATIVE (NEGATIVE) 01/31/23 21:14 Urine Urobilinogen 0.2 (NORMAL) E.U./dL (NORMAL) 01/31/23 21:14 Ur Leukocyte Esterase NEGATIVE (NEGATIVE) 01/31/23 21:14 Ur Microscopic Review NOT INDICATED 01/31/23 21:14 Urine Culture Comments NOT INDICATED 01/31/23 21:14 - Procedures Procedures: Procedures EXCISION OF SIGMOID COLON, OPEN APPROACH (04/19/20) INSERTION OF INFUSION DEV INTO SPINAL CANAL, PERC APPROACH (04/19/20) INTRODUCE OF LOCAL ANESTH INTO SPINAL CANAL, PERC APPROACH (04/19/20) RESECTION OF APPENDIX, PERCUTANEOUS ENDOSCOPIC APPROACH (04/15/19)
[2023-02-01] MEDS ORDERED: DIATR MEGLU/DIATRIZOATE SODIUM 120 ML BOTTLE PO ONE (14:46)
--- NOTE | 2023-02-01 16:33 | PROVIDER PROGRESS NOTE ---
Progress Note General Surgery Afternoon Rounds Note Hospital Day # 1; SBO, partial vs complete Clarita is a bit nauseated but her NGT has been clamped since 0950 this morning when the contrast was administered for the SB challenge study. She has not passed flatus or had a BM. Her abdomen is soft, non-tender and with few bowel sounds. I reviewed her 0950 and 1600 KUB images and it appears as if there is now contrast in the left colon which was not present on the initial image (official results pending). Her stomach is markedly distended. Impression: 1) SBO, partial vs complete. It appears as if the contrast is progressing into the large bowel which is encouraging. 2) Nausea - This is probably due to the gastric distension. I placed her NGT to LIS to relieve the gastric distension. This should not affect the results of the study. Plan: 1) Keep NGT in place and on LIS 2) Dulcolax suppository this afternoon 3) Continue SB challenge protocol Sebastian Bennett MD, FACS General Surgery Service [phone]
--- NOTE | 2023-02-01 16:49 | XRAY Report ---
PROCEDURE: SBFT Challenge Panel INDICATIONS: SBO, Partial vs Complete COMPARISON: CT abdomen and pelvis, 01/31/2023 CONTRAST: Oral contrast given by NGT. ontrast Radiation dose: 196.53 uGym2 FINDINGS: KUB: There is Preprocedural metal tile lather film demonstrates a nasogastric tube within the large hiatal herni a. There is paucity of bowel gas. No suspicious abdominal calcifications. Visualized solid organ co ntours appear normal. No suspicious bony abnormalities. Small bowel: There is delayed normal transit time of barium through the small bowel. There is a larg e hiatal hernia. Stomach is markedly distended. Possible small bowel loops are of dilated measuring u p to 4.4 cm. Distal small bowel loops are normal in caliber. At 6 hours, there is contrast within di stal small intestine and faint oral contrast was seen proximal colon. The terminal ileum is identifie d, and is normal in morphology. IMPRESSION: 1. High grade partial distal small bowel obstruction. There is delayed transit of contrast from small bowel into the colon. 2. Hiatal hernia. 3. Marked gastric distention. Reviewed by: Loraine Farris MD on 02/01/2023 4:47 PM PDT Approved by: Loraine Farris MD on 02/01/2023 4:47 PM PDT Station ID: [id number]
[2023-02-01] MEDS ORDERED: BISACODYL 10 MG SUPP PR ONE (17:00)
[2023-02-02] MEDS: SODIUM CHLORIDE FLUSH 0.9% 10 ML SYRINGE IVP SCH ×2 (00:47→08:10)
[2023-02-02] MEDS: KETOROLAC 30 MG/ML VIAL IVP SCH ×2 (04:26→10:29)
[2023-02-02 05:41] LABS: BASOPHILS % (AUTO) 0.4 %; EOSINOPHILS % (AUTO) 0.3 %; HCT - HEMATOCRIT 36.7 % (37.0-47.0); HGB - HEMOGLOBIN 11.8 g/dL (12.0-16.0); LYMPHOCYTES # (AUTO) 0.5 10^3/uL (1.5-3.5); LYMPHOCYTES % (AUTO) 6.8 %; MEAN CORPUSCULAR HEMOGLOBIN 29.8 pg (27.0-31.0); MEAN CORPUSCULAR HGB CONC 32.2 g/dL (32.0-36.0); MEAN CORPUSCULAR VOLUME 92.7 fL (81.0-99.0); MEAN PLATELET VOLUME 10.9 fL (7.9-10.8); MONOCYTES # (AUTO) 0.6 10^3/uL (0.0-1.0); MONOCYTES % (AUTO) 8.5 %; NEUTROPHILS # (AUTO) 5.8 10^3/uL (1.5-6.6); NEUTROPHILS % (AUTO) 83.7 %; PLT - PLATELET COUNT 154 10^3/uL (130-450); RED BLOOD COUNT 3.96 10^6/uL (4.20-5.40); RED CELL DISTRIBUTION WIDTH 12.9 % (12.0-15.0); WHITE BLOOD COUNT 6.9 x10^3/uL (4.8-10.8)
[2023-02-02 05:56] LABS: ALBUMIN 3.3 g/dL (3.2-5.5); ALBUMIN/GLOBULIN RATIO 1.9 (1.0-2.2); BILIRUBIN,TOTAL 0.6 mg/dL (0.2-1.0); CALCIUM 9.1 mg/dL (8.5-10.3); CREATININE 0.5 mg/dL (0.6-1.3); POTASSIUM 3.7 mmol/L (3.5-4.5)
[2023-02-02] MEDS: PANTOPRAZOLE 40 MG VIAL IV SCH (08:08)
[2023-02-02] MEDS: ENOXAPARIN 40 MG/0.4 ML SYRINGE SUBQ SCH (08:10)
[2023-02-02] MEDS: LACTATED RINGERS 1,000 ML IV SCH (09:07)
--- NOTE | 2023-02-02 09:19 | PROVIDER PROGRESS NOTE ---
Progress Note General Surgery AM Progress Note S: Mild pleuritic right chest pain. No SOB. Sitting in bed eating O: VSS, afeb; Lungs clear to auscultation bilaterally; Thoravent in good position CXR - Tiny right apical pneumothorax; CT in good position (Reviewed by me) A: Recurrent right spontaneous pneumothorax with a history of COPD and a suspicious parenchymal lesion in the right lung. The patient is tolerating the Thoravent well. P: [facility] lung needle biopsy. He can be discharged with the Thoravent until seen by the sub-specialty team. Osbaldo Bennett MD General Surgery Service [phone]
--- NOTE | 2023-02-02 11:09 | XRAY Report ---
PROCEDURE: Abdomen 1 View X-Ray INDICATIONS: F/U SBO TECHNIQUE: One view of the abdomen acquired. COMPARISON: None. FINDINGS: Surgical changes and devices: None. Bowel: Bowel gas pattern is normal. Contrast is seen throughout the large bowel. Soft tissues: No suspicious abdominal calcifications. Visualized solid organ contours appear normal in size. Bones: No suspicious bony lesions. Leftward curvature of the thoracolumbar spine. IMPRESSION: Orally administered contrast is seen within the colon. Reviewed by: Brendan Abrams on 02/02/2023 11:08 AM PDT Approved by: Brendan Abrams on 02/02/2023 11:08 AM PDT Station ID: [id number]
--- NOTE | 2023-02-02 13:24 | PROVIDER PROGRESS NOTE ---
Progress Note General Surgery Progress Note S: Clarita had a large bowel motion last night and continues to pass flatus and stool from her rectum this morning. Her abdominal discomfort has resolved and her NGT has been clamped. She is tolerating clear liquids. O: VSS, afeb; Abdomen is soft and non-tender. There is no distension. Her am KUB shows contrast throughout the colon with normal caliber small bowel Labs: WNL A: Resolved partial SBO P: Remove NGT; advance diet as tolerated; Discharge home when tolerating PO well. She understands that if there is a fixed narrowing of her small bowel that this partial obstruction may recur and if it does she would be a candidate for operative intervention. Osbaldo Bennett MD General Surgery Service [phone]
[2023-02-02 16:32] VITALS: BP 114/59; O2SAT 99
--- NOTE | 2023-02-02 18:12 | Discharge Plan ---
Discharge Plan Problem Reviewed?: Yes Disposition: Home, Self Care Condition: Fair Diet: Soft (2 g daily) Activity Restrictions: Activity as Tolerated Shower Restrictions: No Assistance Devices: Other (Braces) Instruction Topics: Obstruction Sm Bowel Health Concerns: You were hospitalized to manage a bowel obstruction. Your intestines were decompressed from above with a nasogastric tube. You then ingested Gastrografin. This did help to open up the bowel and you are able to have a bowel movement and pass gas. You are being discharged home today. Stay well-hydrated. For the next week eat easily digestible foods, low fiber foods are recommended, or pure your food. Please see your primary care provider in the next 5 to 10 days for a hospital follow-up visit. You may resume all your usual pre-hospital medications and management. Plan of Treatment: As above. Care Goals: Improvement in symptoms and stabilization are the goals. Assessment: The patient understands and is agreeable with the plan. Additional Instructions or Follow Up instructions: If you have new or worsening symptoms, call your primary care provider for advice, or come to the ER. No Smoking: If you smoke, Please STOP! Call for help. Follow-up with: ESTELLE ESPINOSA [Primary Care Provider] -
--- NOTE | 2023-02-02 18:18 | DISCHARGE SUMMARY ---
Discharge Summary Admit Date: 02/01/23 Discharge Date: 02/02/23 Discharging Provider: ALLISON WIGGINS Primary Care Provider: ESTELLE ESPINOSA Condition at Discharge: Fair Discharge Disposition: 01 Home, Self Care - HPI History of Present Illness: 78 yo F with PMH of Polio, GERD, Severe Diverticulosis, Colonic stricture s/p colonic resection 2019, Chronic LBP, Laryngeal spasms, and Anxiety presented to the with c/o 1 day h/o abdominal pain, Dizziness. Pt began to have worse LBP on 01/18/23 after doing upper arm exercises. She has been taking Alleve and Tylenol regularly since then. She went to see her doctor on , who prescribed muscle relaxants; she started these that night. Ever since her colonic resection in 2019, her BMs have been regular, 2x/day, normal. Pt took the muscle relaxants x 2 days, then stopped them b/c she had not had any BMs x 2 days, her BP had decreased, and her mouth felt dry. Today, around 3P, she began to have abdominal fullness/discomfort/gas around her belly button. She went to the bathroom and strained until she was able to have a small, hard BM. This made her LBP worse. She then felt dizzy, so she called her and he called EMS. The dizziness resolved spontaneously after a few minutes. The abdominal pain persisted. No radiation. +nausea, no vomiting. No Fever or Chills. No urinary symptoms. No CP/SOB/cough. In the ER, K 3.4, LA 2.7, WBC 11.4, U/A neg CT Abdo: SBO LLQ, free fluid in abd. Pt was given IVF, Zofran, Morphine 4 mg IV, Versed in the ER. NGT ordered to be placed. ER Physician consulted Dr. Garcia, General Surgery and they will consult in AM. She will be brought in for managing SBO. - HOSPITAL COURSE Hospital Course: (1) SBO (small bowel obstruction) IV fluids were started and pain meds and antiemetics were ordered as needed. An ng tube was placed to low suction for decompression. The Gen Surgeon saw her in consult and recommended an oral Gastrografin challenge w/ sequential abdominal imaging. The oral contrast did result in a BM and her abdominal pain improved, her ng tube was removed, and she tolerated advancing her diet. She was able to be discharged (unexpectedly quickly) the following day after dinner. (2) History of [id number] She uses braces on both legs for support. She was evaluated by PT, ambulated and could walk stairs, and could be discharged home. - ALLERGIES Allergies/Adverse Reactions: Allergies Allergy/AdvReac Type Severity Reaction Status Date / Time epinephrine Allergy drool, Verified 01/31/23 19:29 shaking, crying erythromycin base Allergy Rash Verified 01/31/23 19:29 indomethacin Allergy Unknown Verified 01/31/23 19:29 Latex, Natural Rubber Allergy Rash, Verified 01/31/23 19:29 blisters Sulfa (Sulfonamide Allergy Dizziness Verified 01/31/23 19:29 Antibiotics) - MEDICATIONS Home Medications: Ambulatory Orders Medication Instructions Recorded Confirmed Omeprazole 40 mg PO QDAC 04/19/20 01/31/23 Meloxicam [Mobic] 15 mg PO DAILY 01/31/23 01/31/23 - PHYSICAL EXAM AT DISCHARGE General Appearance: positive: No acute distress, Alert Eyes Bilateral: positive: Normal inspection, EOMI ENT: positive: ENT inspection nml, No signs of dehydration Neck: positive: Nml inspection, No JVD Respiratory: positive: No respiratory distress, Breath sounds nml Cardiovascular: positive: Regular rate & rhythm, No murmur Skin: positive: Warm, Dry Extremities: positive: Non-tender, No pedal edema Neurologic/Psychiatric: positive: Oriented x3, Other (Atrophic leg muscles and feet) - LABS Result Diagrams: 02/02/23 05:28 02/02/23 05:28 - DIAGNOSTIC IMAGING Diagnostic Imaging Results: Final report reviewed - FOLLOW UP Follow Up: See PCP in 1-2 weeks for a hospital F/U visit. - TIME SPENT Time Spent in Discharge (Minutes): 31
== END 2023-02-02 18:45 | disposition home or self-care (01) | DRG 389 ==
LOC: EDUNIT# → ED 19:20 → MS2 02-01 00:04
PROVIDERS: ADMIT Internal Medicine; ATTEND Internal Medicine
DX: K56.609 Unspecified intestinal obstruction, unspecified as to partial versus complete obstruction (principal); E87.20 Acidosis, unspecified; J93.83 Other pneumothorax; G89.29 Other chronic pain; M54.50 Low back pain, unspecified; H54.7 Unspecified visual loss; M19.90 Unspecified osteoarthritis, unspecified site; K21.9 Gastro-esophageal reflux disease without esophagitis; J44.9 Chronic obstructive pulmonary disease, unspecified; D72.829 Elevated white blood cell count, unspecified; K57.30 Diverticulosis of large intestine without perforation or abscess without bleeding; E87.6 Hypokalemia; K44.9 Diaphragmatic hernia without obstruction or gangrene; M62.830 Muscle spasm of back; M41.9 Scoliosis, unspecified; R07.81 Pleurodynia; Z82.49 Family history of ischemic heart disease and other diseases of the circulatory system; Z86.12 Personal history of poliomyelitis; Z87.19 Personal history of other diseases of the digestive system; Z90.49 Acquired absence of other specified parts of digestive tract; Z90.710 Acquired absence of both cervix and uterus
CPT/HCPCS: 36415; 74018; 74177; 74250; 80053; 81003; 83605; 83690; 85025; 96374; 97116; 97162; 99284; 99285; A9270; J1650; J2060; J7120; Q9963; Q9967; 81001; 87086

== ENCOUNTER 2023-05-21 12:03 | Emergency (ER) | payer MEDICARE, OTHER ==
[2023-05-21 13:00] LABS: BASOPHILS % (AUTO) 1.1 %; EOSINOPHILS # (AUTO) 0.2 10^3/uL (0.0-0.7); EOSINOPHILS % (AUTO) 4.1 %; HCT - HEMATOCRIT 42.3 % (37.0-47.0); HGB - HEMOGLOBIN 13.2 g/dL (12.0-16.0); LYMPHOCYTES # (AUTO) 0.6 10^3/uL (1.5-3.5); LYMPHOCYTES % (AUTO) 15.1 %; MEAN CORPUSCULAR HEMOGLOBIN 28.1 pg (27.0-31.0); MEAN CORPUSCULAR HGB CONC 31.2 g/dL (32.0-36.0); MEAN CORPUSCULAR VOLUME 90.2 fL (81.0-99.0); MEAN PLATELET VOLUME 10.7 fL (7.9-10.8); MONOCYTES # (AUTO) 0.3 10^3/uL (0.0-1.0); MONOCYTES % (AUTO) 6.8 %; NEUTROPHILS # (AUTO) 2.6 10^3/uL (1.5-6.6); NEUTROPHILS % (AUTO) 72.1 %; PLT - PLATELET COUNT 204 10^3/uL (130-450); RED BLOOD COUNT 4.69 10^6/uL (4.20-5.40); RED CELL DISTRIBUTION WIDTH 12.7 % (12.0-15.0); WHITE BLOOD COUNT 3.7 x10^3/uL (4.8-10.8)
[2023-05-21 13:01] LABS: BILIRUBIN,URINE NEGATIVE (NEGATIVE); GLUCOSE, URINE (UA) NEGATIVE (NEGATIVE); KETONES,URINE (UA) NEGATIVE (NEGATIVE); LEUKOCYTE ESTERASE, URINE NEGATIVE (NEGATIVE); NITRITE,URINE POSITIVE (NEGATIVE); OCCULT BLOOD,URINE NEGATIVE (NEGATIVE); PH,URINE 6.5 PH (5.0-7.5); PROTEIN,URINE NEGATIVE (NEGATIVE); UROBILINOGEN,URINE 0.2 (NORMAL) E.U./dL (NORMAL)
[2023-05-21 13:03] LABS: CLARITY,URINE CLEAR (CLEAR)
[2023-05-21 13:07] LABS: INR 1.1 (0.8-1.2); PT - PROTHROMBIN TIME 11.7 secs (9.9-12.6)
[2023-05-21 13:11] LABS: BACTERIA,URINE Few /HPF (None Seen); RBC,URINE 0-5 /HPF (0-5); SQUAMOUS EPITHELIAL CELL,UR RARE Squamous (<= Few); WBC,URINE 0-3 /HPF (0-5)
[2023-05-21 13:18] LABS: ALBUMIN 4.4 g/dL (3.2-5.5); ALBUMIN/GLOBULIN RATIO 1.8 (1.0-2.2); BILIRUBIN,TOTAL 0.8 mg/dL (0.2-1.0); CALCIUM 10.3 mg/dL (8.5-10.3); CREATININE 0.4 mg/dL (0.6-1.3); POTASSIUM 3.7 mmol/L (3.5-4.5); TOTAL PROTEIN 6.9 g/dL (6.4-8.9)
--- NOTE | 2023-05-21 13:19 | ED Physician Documentation ---
History of Present Illness - Stated complaint Stated Complaint: DIZZINESS,MENDOZA,GEN WEAKNESS - Chief complaint Chief Complaint: Neuro - History obtained from History obtained from: Patient - Additonal information Additional information: 78-year-old female with history of polio in childhood (wears leg brace and walks with cane at baseline) presents from home by private vehicle for 1 week of lightheaded sensation, fatigue, generalized weakness. States that she has had numerous stressors lately, but since the holidays are approaching she wanted to be evaluated because she did not feel like she was getting any better. Patient states that she chronically feels fatigue from her polio, but this is worse than usual. Patient also reports that she gets double vision when she tries to read, but does not have double vision at any other time. Denies unilateral numbness, weakness, vertigo, other complaints at this time. Of note, patient states that earlier this week she was diagnosed with a urinary tract infection and has been taking antibiotics. She was also taking Azo at home, her last dose was yesterday. She is concerned that the urinary tract infection may also be contributing to her symptoms. Review of Systems Constitutional: reports: Fatigue. denies: Fever, Chills, Weight Loss Cardiac: denies: Chest pain / pressure, Palpitations, Calf pain Respiratory: denies: Dyspnea, Cough, Wheezing GI: denies: Abdominal Pain, Nausea, Vomiting, Constipation, Diarrhea : denies: Dysuria, Frequency, Hesitancy Neurologic: reports: Generalized weakness. denies: Focal weakness, Numbness, Difficulty speaking, Near syncope PD PAST MEDICAL HISTORY - Past Medical History Cardiovascular: None Respiratory: None Neuro: Headaches, Peripheral neuropathy Endocrine/Autoimmune: None GI: GERD, Hiatal hernia, C.difficile, Diverticulitis : None HEENT: Chronic vision loss Psych: Depression Musculoskeletal: Osteoarthritis, Scoliosis, Chronic back pain, Other Derm: None - Past Surgical History Past Surgical History: Yes General: Appendectomy, Bowel surgery, Colonoscopy Ortho: Other /[employer]: Hysterectomy HEENT: Cataracts - Present Medications Home Medications: Ambulatory Orders Medication Instructions Recorded Confirmed Omeprazole 40 mg PO QDAC 04/19/20 05/21/23 Meloxicam [Mobic] 15 mg PO BID PRN 01/31/23 05/21/23 Cephalexin Suspension [Keflex] 150 mg PO QID 05/21/23 05/21/23 - Allergies Allergies/Adverse Reactions: Allergies Allergy/AdvReac Type Severity Reaction Status Date / Time erythromycin base Allergy Rash Verified 01/31/23 19:29 indomethacin Allergy Unknown Verified 01/31/23 19:29 Latex, Natural Rubber Allergy Rash, Verified 01/31/23 19:29 blisters Sulfa (Sulfonamide Allergy Dizziness Verified 01/31/23 19:29 Antibiotics) - Social History Does the pt smoke?: No Smoking Status: Never smoker Does the pt drink ETOH?: No Does the pt have substance abuse?: No - Immunizations Immunizations are current?: Yes - POLST Patient has POLST: No PD ED PE NORMAL - Vitals Vital signs reviewed: Yes - General General: Alert and oriented X 3, No acute distress, Well developed/nourished - HEENT HEENT: Atraumatic, PERRL, EOMI, Ears normal, Moist mucous membranes - Neck Neck: Supple, no meningeal sign, No bony TTP - Cardiac Cardiac: RRR, Strong equal pulses - Respiratory Respiratory: No respiratory distress, Clear bilaterally - Abdomen Abdomen: Soft, Non tender, Non distended - Derm Derm: Normal color, Warm and dry, No rash - Extremities Extremities: No deformity, No tenderness to palpate, Normal ROM s pain, No edema, Other (LLE in brace (chronic)) - Neuro Neuro: Alert and oriented X 3, dolphin researcher 2-12 intact, No motor deficit, Normal speech - Psych Psych: Normal mood, Normal affect Results - Vitals Vitals: Vital Signs - 24 hr 05/21/23 05/21/23 12:19 14:56 Temperature 37.2 C 37.2 C Heart Rate 87 68 Respiratory 18 18 Rate Blood Pressure 150/82 H 145/74 H O2 Saturation 99 97 Oxygen O2 Source Room air - Labs Labs: Laboratory Tests 05/21/23 05/21/23 05/21/23 12:41 12:41 12:41 WBC 3.7 L RBC 4.69 Hgb 13.2 Hct 42.3 MCV 90.2 MCH 28.1 MCHC 31.2 L RDW 12.7 Plt Count 204 MPV 10.7 Neut # (Auto) 2.6 Lymph # (Auto) 0.6 L Rutherford # (Auto) 0.3 Eos # (Auto) 0.2 Baso # (Auto) 0.0 Absolute Nucleated RBC 0.00 Nucleated RBC % 0.0 PT 11.7 INR 1.1 Sodium 141 Potassium 3.7 Chloride 105 Carbon Dioxide 26 Anion Gap 10.0 BUN 20 Creatinine 0.4 L Estimated GFR (MDRD) 155 Glucose 92 Calcium 10.3 Total Bilirubin 0.8 AST 21 ALT 15 Alkaline Phosphatase 71 Total Protein 6.9 Albumin 4.4 Globulin 2.5 Albumin/Globulin Ratio 1.8 TSH Urine Color Urine Clarity Urine pH Ur Specific Endeavor Urine Protein Urine Glucose (UA) Urine Ketones Urine Occult Blood Urine Nitrite Urine Bilirubin Urine Urobilinogen Ur Leukocyte Esterase Urine RBC Urine WBC Ur Squamous Epith Cells Urine Bacteria Ur Microscopic Review Urine Culture Comments 05/21/23 05/21/23 12:41 12:41 WBC RBC Hgb Hct MCV MCH MCHC RDW Plt Count MPV Neut # (Auto) Lymph # (Auto) Rutherford # (Auto) Eos # (Auto) Baso # (Auto) Absolute Nucleated RBC Nucleated RBC % PT INR Sodium Potassium Chloride Carbon Dioxide Anion Gap BUN Creatinine Estimated GFR (MDRD) Glucose Calcium Total Bilirubin AST ALT Alkaline Phosphatase Total Protein Albumin Globulin Albumin/Globulin Ratio TSH 2.46 Urine Color YELLOW Urine Clarity CLEAR Urine pH 6.5 Ur Specific Endeavor 1.015 Urine Protein NEGATIVE Urine Glucose (UA) NEGATIVE Urine Ketones NEGATIVE Urine Occult Blood NEGATIVE Urine Nitrite POSITIVE H Urine Bilirubin NEGATIVE Urine Urobilinogen 0.2 (NORMAL) Ur Leukocyte Esterase NEGATIVE Urine RBC 0-5 Urine WBC 0-3 Ur Squamous Epith Cells RARE Squamous Urine Bacteria Few Ur Microscopic Review INDICATED Urine Culture Comments INDICATED PD Medical Decision Making - ED course Complexity details: reviewed old records, reviewed results, re-evaluated patient, considered differential, d/w patient ED course: Well-appearing patient with generalized symptoms for 1 week. Patient reports double vision when trying to read, however extraocular movements are intact, there are no deficits, no cranial nerve abnormalities. Vital signs reviewed, unremarkable. Will obtain labs and CT imaging. Laboratory work is reviewed, there are no acute abnormalities identified. Electrolytes are within normal limits. Hemoglobin 13, kidney function normal. Patient does have nitrite positive urinalysis, however she has recently taken Azo and without leukocyte esterase, WBCs present this is likely secondary to the Azo. CT of the brain reveals no acute abnormalities. Chest x-ray read as interstitial changes versus pulmonary edema. In absence of respiratory complaints and clear lung sounds these are likely chronic interstitial changes. Patient informed of all lab and imaging findings, I recommended that patient follow-up with her primary care physician if she continues to feel poorly. I recommended that she finish the antibiotic she was prescribed for her urinary tract infection and to continue to drink plenty of fluids. ED return precautions discussed at bedside. Departure - Departure Disposition: 01 Home, Self Care Clinical Impression: Lightheaded, Dizziness Condition: Stable Instructions: ED Dizziness [facility] Forms: PCP List Discharge Date/Time: 05/21/23 15:04
--- NOTE | 2023-05-21 14:03 | CT Report ---
PROCEDURE: HEAD WO INDICATIONS: lightheaded, double vision x1 wk TECHNIQUE: Noncontrast 4.5 mm thick angled axial sections acquired from the foramen magnum to the vertex. For r adiation dose reduction, the following was used: automated exposure control, adjustment of mA and/or kV according to patient size. COMPARISON: None. FINDINGS: Image quality: Excellent. CSF spaces: Basal cisterns are patent. No extra-axial fluid collections. Ventricles are normal in size and shape. Brain: No midline shift. No intracranial masses or hemorrhage. Roy-white matter interface is norm al. Age-related volume loss and very mild small vessel ischemic change, age appropriate. Mild intracr anial carotid calcifications. Skull and face: Calvarium and visualized facial bones are intact, without suspicious lesions. Sinuses: Visualized sinuses and mastoids are clear. IMPRESSION: No acute intracranial pathology. Reviewed by: Amrik Morrison MD on 05/21/2023 2:02 PM PST Approved by: Amrik Morrison MD on 05/21/2023 2:02 PM PST Station ID: [id number]
--- NOTE | 2023-05-21 14:06 | XRAY Report ---
PROCEDURE: Chest 1 View X-Ray INDICATIONS: lightheaded x1 wk TECHNIQUE: One view of the chest was acquired. COMPARISON: 02/01/2023. FINDINGS: Surgical changes and devices: None. Lungs and pleura: No pleural effusions or pneumothorax. Question mild chronic interstitial change ve rsus subtle acute interstitial pulmonary edema. Mediastinum: Mediastinal contours appear normal. Heart size is normal. Bones and chest wall: No suspicious bony lesions. Overlying soft tissues appear unremarkable. S-sha ped scoliotic curvature of the thoracolumbar spine. IMPRESSION: Question mild chronic interstitial change versus subtle acute interstitial pulmonary edema. Recommend clinical correlation. Reviewed by: Amrik Morrison MD on 05/21/2023 2:05 PM PST Approved by: Amrik Morrison MD on 05/21/2023 2:05 PM PST Station ID: [id number]
[2023-05-21 15:05] VITALS: BP 145/74; O2SAT 97
== END 2023-05-21 15:04 | disposition home or self-care (01) ==
LOC: ED 12:03
DX: R42 Dizziness and giddiness (principal); R53.83 Other fatigue
CPT/HCPCS: 36415; 80053; 81001; 81003; 84443; 85025; 85610; 87086; 93005; 99283; 99284

== ENCOUNTER 2023-06-09 17:28 | Emergency (ER) | payer MEDICARE, OTHER ==
[2023-06-09 17:47] VITALS: BP 167/92; O2SAT 99
--- NOTE | 2023-06-09 18:35 | ED Physician Documentation ---
History of Present Illness - Stated complaint Stated Complaint: C+ GI - Chief complaint Chief Complaint: Abd Pain - Additonal information Additional information: 78-year-old female with history of CHF presents emergency department today for 1 episode of diarrhea. Patient recently had a urinary tract infection complete a full course of Keflex last dose was around 05/29 and UTI symptoms now feel fully resolved. She was recently diagnosed with COVID on Monday 06/05 she is not on Paxlovid but overall feeling well. Patient reports that she had 1 episode of diarrhea today and is worried that her C. difficile is back. She denies any abdominal pain no recurrent diarrhea no fevers or chills. Patient does have a primary care provider who she is able to communicate with via [employer] but says that she has been having a hard time getting her primary care provider here and would be a line. She has no dizziness no nausea vomiting. PD PAST MEDICAL HISTORY - Past Medical History Past Medical History: Yes Cardiovascular: None Respiratory: None Neuro: Headaches, Peripheral neuropathy Endocrine/Autoimmune: None GI: GERD, Hiatal hernia, C.difficile, Diverticulitis : None HEENT: Chronic vision loss Psych: Depression Musculoskeletal: Osteoarthritis, Scoliosis, Chronic back pain, Other Derm: None - Past Surgical History Past Surgical History: Yes General: Appendectomy, Bowel surgery, Colonoscopy Ortho: Other /[employer]: Hysterectomy HEENT: Cataracts - Present Medications Home Medications: Ambulatory Orders Medication Instructions Recorded Confirmed Omeprazole 40 mg PO QDAC 04/19/20 06/09/23 Meloxicam [Mobic] 15 mg PO BID PRN 01/31/23 06/09/23 - Allergies Allergies/Adverse Reactions: Allergies Allergy/AdvReac Type Severity Reaction Status Date / Time erythromycin base Allergy Rash Verified 06/09/23 17:42 indomethacin Allergy Unknown Verified 06/09/23 17:42 Latex, Natural Rubber Allergy Rash, Verified 06/09/23 17:42 blisters Sulfa (Sulfonamide Allergy Dizziness Verified 06/09/23 17:42 Antibiotics) - Social History Does the pt smoke?: No Smoking Status: Never smoker Does the pt drink ETOH?: No Does the pt have substance abuse?: No - Immunizations Immunizations are current?: Yes - POLST Patient has POLST: No PD ED PE NORMAL - Vitals Vital signs reviewed: Yes - General General: Alert and oriented X 3, Well developed/nourished - Respiratory Respiratory: No respiratory distress - Abdomen Abdomen: Normal bowel sounds, Soft, Non tender, Non distended - Psych Psych: Normal mood Results - Vitals Vitals: Vital Signs - 24 hr 06/09/23 06/09/23 17:34 19:27 Temperature 36.9 C Heart Rate 93 Respiratory 16 17 Rate Blood Pressure 167/92 H O2 Saturation 99 Oxygen O2 Source Room air PD Medical Decision Making - ED course ED course: 78-year-old female presents to the emergency department for concerns of diarrhea. She has only had 1 episode of diarrhea today she says she does not have any urgency to have a bowel movement here right now. I informed the patient that given the fact that she has only had 1 episode of diarrhea it is not warranted to wait in the emergency department until she is able to have a bowel movement for a stool sample. She also has no abdominal pa in and does not meet other classic criteria of C. difficile. Patient was alleviated with this information and feels significantly better and feels ready to go home. She has contact with her primary care provider and said if needed and continues to have any loose bowel movements they will be able to send over a lab order for a stool sample that she feels confident she will be able to take care of on her own. All questions answered safe for discharge with her at bedside. Departure - Departure Disposition: 01 Home, Self Care Clinical Impression: COVID-19 Diarrhea Qualifiers: Diarrhea type: unspecified type Qualified Code(s): R19.7 - Diarrhea, unspecified Instructions: ED Diarhhea Viral Ch Comments: Thank you for trusting us with your care as we discussed because you have only had 1 episode of diarrhea it is too early at this time to have C. difficile. This can also be a side effect of COVID that you also have. I recommend reaching out to your primary care provider if you are still having multiple episodes of diarrhea over the next few days and ask her about a possible stool sample. Please come back to the emergency department if you are having maranda rtness of breath, chest pain, severe diarrhea, or any other concerning symptoms. Forms: PCP List Discharge Date/Time: 06/09/23 19:28
== END 2023-06-09 19:28 | disposition home or self-care (01) ==
LOC: ED 17:28
DX: R19.7 Diarrhea, unspecified (principal); U07.1 COVID-19
CPT/HCPCS: 99281; 99283

== ENCOUNTER 2025-02-01 14:48 | Observation (INO) ==
[2025-02-01 15:44] LABS: HCT - HEMATOCRIT 40.1 % (37.0-47.0); HGB - HEMOGLOBIN 13.0 g/dL (12.0-16.0); MEAN PLATELET VOLUME 10.6 fL (7.9-10.8); NRBC ABSOLUTE COUNT (AUTO) 0.00 x10^3/uL; NUCLEATED RED BLOOD CELLS AUTO 0.0 /100WBC; PLT - PLATELET COUNT 198 10^3/uL (130-450); RED CELL DISTRIBUTION WIDTH 13.2 % (12.0-15.0)
[2025-02-01 16:00] LABS: ALT ALANINE AMINOTRANSFERASE 15.0 IU/L (10-60); AST ASPARTATE AMINOTRANSFERASE 22.0 IU/L (10-42); BUN - BLOOD UREA NITROGEN 34.0 mg/dL (6-20); CARBON DIOXIDE - CO2 32.0 mmol/L (21-32); CREATININE 0.6 mg/dL (0.6-1.3); GFR - MDRD 96.0 (>89)
--- NOTE | 2025-02-01 19:39 | ED Physician Documentation ---
PD HPI ABD PAIN Stated complaint Stated Complaint: ABD PX, Chief complaint Chief Complaint: Abd Pain Additional information Additional information: 80-year-old female with history of multiple small bowel obstructions requiring surgeries as well as about 9 inches of colon removed presents the emergency department for abdominal cramping. She said abdominal cramping started around 1030 this morning she has had normal bowel movements today x 2 no nausea vomiting diarrhea no significant pain just generalized abdominal cramping sensation no fevers or chills.No urinary complaints. Meds/Allgy Home Medications Ambulatory Orders Medication Instructions Recorded Confirmed omeprazole 40 mg capsule,delayed 40 mg PO QDAC 0 06/09/23 release meloxicam 7.5 mg tablet 15 mg PO BID PRN Pain 1-4 06/09/23 Allergies Allergies Allergy/AdvReac Type Severity Reaction Status Date / Time erythromycin base Allergy Rash Verified 02/01/25 15:03 indomethacin Allergy Unknown Verified 02/01/25 15:03 Latex, Natural Rubber Allergy Rash, Verified 02/01/25 15:03 blisters Sulfa (Sulfonamide Allergy Dizziness Verified 02/01/25 15:03 Antibiotics) PFSH Active Problems All Active Problems (Updated 02/01/25 @ 21:28 by Jeniffer Hirsch DNP) SBO (small bowel obstruction) (Acute) Medical History Medical History (Updated 02/01/25 @ 21:28 by Jeniffer Hirsch DNP) Polio Osteoporosis Bowel obstruction Perforated bowel Surgical History Surgical History History of appendectomy History of bowel resection History of hysterectomy Social History Social History Do you dip or chew tobacco?: No Do you vape?: No Living arrangement: At home Living Condition: With spouse/s.o. Level: Independent Do you feel safe in your home environment?: Yes History of physical, verbal, emotional, or financial abuse?: No POLST Patient has POLST: No Exam Exam Vital Signs: Vital Signs x48h Temp Pulse Resp BP Pulse Ox 02/01/25 15:01 36.8 C 91 18 149/79 H 98 Constitutional normal general appearance, no apparent distress, average body habitus, no limitations and alert HENMT normocephalic and head/scalp atraumatic Eyes PERRL Chest inspection of chest normal Gastrointestinal abdomen normal to inspection, abdomen soft to palpation, tender to palpation (Mild generalized abdominal tenderness) and abnormal bowel sounds noted (hypoactive bowel sounds) Genitourinary no CVA tenderness Extremities normal to inspection Skin skin color normal Results Vitals Vitals: Vital Signs - 24 hr 02/01/25 15:01 02/01/25 19:55 Temperature 36.8 C Temperature Source Temporal Artery Scan Pulse Rate 91 Respiratory Rate 18 Blood Pressure 149/79 H O2 Saturation 98 O2 Source Room air Pain Intensity 0 3 Oxygen O2 Source Room air Labs Labs: Laboratory Tests 02/01/25 15:34 WBC 6.9 RBC 4.42 Hgb 13.0 Hct 40.1 MCV 90.7 MCH 29.4 MCHC 32.4 RDW 13.2 Plt Count 198 MPV 10.6 Neut # (Auto) 5.4 Lymph # (Auto) 0.9 L [place] # (Auto) 0.4 Eos # (Auto) 0.2 Baso # (Auto) 0.1 Absolute Nucleated RBC 0.00 Nucleated RBC % 0.0 Sodium 143 Potassium 3.9 Chloride 104 Carbon Dioxide 32 Anion Gap 7.0 BUN 34 H Creatinine 0.6 Estimated GFR (MDRD) 96 Glucose 90 Calcium 10.6 H Total Bilirubin 0.5 AST 22 ALT 15 Alkaline Phosphatase 110 Total Protein 7.1 Albumin 4.5 Globulin 2.6 Albumin/Globulin Ratio 1.7 Lipase 14 Rads (name of study) CT abdomen pelvis with contrast: Relevant Findings:: Final report received and EMP independent interpretation of test Interpretation: IMPRESSION: 1.Findings most consistent with small bowel obstruction with transition point in the left lower quadrant. There is small free fluid in the left lower quadrant which is likely reactive. 2.Please see above for additional findings. PD Medical Decision Making ED course ED course: 80-year-old female comes into the emergency department for concerning symptoms of a small bowel obstruction. She has generalized abdominal discomfort no nausea or vomiting no pain out of proportion has had to a total of 2 bowel movements today without any complications or difficulty. CT abdomen pelvis was completed further evaluation and does reveal small bowel obstruction with transition point in the left lower quadrant there is a small free fluid in the left lower quadrant which is likely reactive. Reach out to hospitalist who has graciously agreed to admit the patient for small bowel obstruction patient is agreeable to stay. Discharge Plan Discharge Patient Disposition: ED Place in Observation Clinical Impression: SBO (small bowel obstruction) Prescriptions: No Action omeprazole 40 MG capsule,delayed release(DR/EC) 40 mg PO QDAC Patient Comments: take 1 capsule by mouth once daily 30 MINUTES BEFORE BREAKFAST meloxicam 7.5 MG tablet 15 mg PO BID PRN (Reason: Pain 1-4) Patient Comments: take 2 tablets by mouth once daily Print Language: Mongolian Stand Alone Forms: PCP List
--- NOTE | 2025-02-01 20:41 | CT Report ---
PROCEDURE: CT Abdomen/Pelvis W INDICATIONS: Abdominal pain, history of SBO CONTRAST: OMNI 300, 100ML TECHNIQUE: After the administration of intravenous contrast, a CT scan of the abdomen and pelvis was performed. Images were recorded and evaluated at appropriate window settings. Reformats: coronal and sagittal. For radiation dose reduction, the following was used: automated exposure control, adjustment of mA and/or kV according to patient size. COMPARISON: 01/31/2023 FINDINGS: Image quality: Diagnostic. Lower chest: Mild bibasilar atelectasis. Large hiatal hernia. Liver: No solid mass. Gallbladder: No radiopaque stones or wall thickening. Biliary tree: No intrahepatic or extrahepatic dilation, accounting for age. Spleen: No splenomegaly. Pancreas: No pancreatic ductal dilation. Adrenals: No adrenal nodule. Kidneys and ureters: No hydronephrosis. No renal cystic lesion which requires follow up. No solid mass. Stomach, bowel and peritoneum: Dilated loops of small bowel with air-fluid levels measuring up to 3.2 cm. There appears to be a transition point within the left lower quadrant.. No abnormal wall thickening. Small free fluid. Lymph nodes: No central or retroperitoneal adenopathy. Vessels: No infrarenal aortic aneurysm. Atherosclerotic vascular ossifications. Patent portal vein. PELVIS Reproductive organs: Hysterectomy. Bladder: No abnormal wall thickening. Pelvic lymph nodes: No pelvic adenopathy by size criteria. Bones: No aggressive osseous abnormality. Levoscoliotic curvature. Degenerative changes of the spine. Decreased osseous mineralization. Other: Small lower anterior abdominal wall hernia containing fat. IMPRESSION: 1.Findings most consistent with small bowel obstruction with transition point in the left lower quadrant. There is small free fluid in the left lower quadrant which is likely reactive. 2.Please see above for additional findings. Reviewed by: Lavon Gutiérrez MD on 02/01/2025 8:40 PM PDT Approved by: Lavon Gutiérrez MD on 02/01/2025 8:40 PM PDT Station ID: [id number]
[2025-02-01] MEDS: ONDANSETRON 4 MG/2 ML VIAL IVP STA (21:47)
--- NOTE | 2025-02-01 21:47 | HISTORY & PHYSICAL EXAMINATION ---
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 She has a history of small bowel obstruction once in January 2023 and this feels like similar. Her surgical history consists of exploratory surgery for ruptured diverticulitis, the perforation was never found at the time of that surgery, large bowel resection for colonic stricture in March 2020, by Dr. Colby Pagan, appendectomy in 2018 and hysterectomy 40 years ago.. As mentioned previously she started to have abdominal pain midmorning today. Since the onset of her abdominal pain she has had 2 formed bowel movements. She has been having some nausea but has not vomited. She has not eaten anything today. She complains of crampy abdominal pain that seems to be a little bit better when she is able to walk. She lives with her of many years. Both she and her are in good health and active. She walks with crutches and braces but this has been the case for her entire life and she has learned to adapt and live well with it. 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 Her primary care doctor is Dr. Kevin Tatum at [facility] in [place]. For CODE STATUS she wishes to be DNR. She states this to me without hesitation Meds/Allgy Home Medications Ambulatory Orders Medication Instructions Recorded Confirmed omeprazole 40 mg capsule,delayed 40 mg PO QDAC 0 06/09/23 release meloxicam 7.5 mg tablet 15 mg PO BID PRN Pain 1-4 06/09/23 Allergies Allergies Allergy/AdvReac Type Severity Reaction Status Date / Time erythromycin base Allergy Rash Verified 02/01/25 15:03 indomethacin Allergy Unknown Verified 02/01/25 15:03 Latex, Natural Rubber Allergy Rash, Verified 02/01/25 15:03 blisters Sulfa (Sulfonamide Allergy Dizziness Verified 02/01/25 15:03 Antibiotics) PFSH Active Problems All Active Problems (Updated 02/01/25 @ 21:28 by Jeniffer Hirsch DNP) SBO (small bowel obstruction) (Acute) Medical History Medical History (Updated 02/01/25 @ 21:28 by Jeniffer Hirsch DNP) Polio Osteoporosis Bowel obstruction Perforated bowel Surgical History Surgical History History of appendectomy History of bowel resection History of hysterectomy Social History Social History Smoking Status: Never smoker Do you dip or chew tobacco?: No Do you vape?: No Living arrangement: At home Living Condition: With spouse/s.o. Level: Independent Do you feel safe in your home environment?: Yes History of physical, verbal, emotional, or financial abuse?: No POLST Patient has POLST: No POLST CPR Status: Do Not Attempt Resuscitation (DNAR) / Allow Natural Review of Systems Status of ROS: 10 or more systems reviewed and unremarkable except as noted in history and below Prior Level of Functionality: independent. 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 bowel tones are present. not tender. Extremities braces in place on lower extremities Neurology speech normal and GCS 15 lower ext weakness that is chronic Psychiatry mental status grossly normal, oriented x3, thought process normal, cooperative and memory normal Skin skin color normal Conclusion/Plan Problem List (1) SBO (small bowel obstruction): Plan: Patient with nausea and abdominal pain presents to the emergency department. She denies vomiting and has had 2 bowel movements today. These were normal sized formed bowel movements. She has not had any melena she has not had any blood in her bowel movements. She was feeling well until her symptoms began at midmorning this morning. She has had a small amount of flatus since she has been in the emergency department but she is becoming more and more nauseated and now is starting to retch. Her CT does show a small bowel obstruction with a transition point in the left lower quadrant. She has an extensive past surgical history. I will admit this patient for supportive care of her small bowel obstruction. I will allowed her to have sips of clears at will. I will start her on IV fluids. I will repeat a CBC and a BMP in the a.m. Both of these labs are unremarkable at the time of admission. I will treat her nausea with Zofran but I also explained to the patient that sometimes the nausea and vomiting associated with small bowel obstruction is mechanical in nature and an NG tube for decompression can be very helpful. I will consider Gastrografin study in the morning either via the NG tube or having her drink the Gastrografin if she is not passing regular flatus or has not had a bowel movement. Due to the fact that the patient has had 2 bowel movements today and is passing flatus in the emergency department I am going to admit her to observation status as I think it is quite possible that she will be here for less than 24 hours. I discussed this patient with JEREMIE Zhao in the emergency department who asked me to admit the patient for small bowel obstruction. I discussed surgical consultation with the emergency department, however the general surgeon is currently otherwise occupied in the operating room. Will consult general surgery when they are available. (2) Osteoporosis: Plan: She is on daily Teriparatide injections. She has not had any fractures. She states that overall she has been feeling unwell since she started this medication and she is questioning whether she should continue this. She has been trying to discuss this with her primary care doctor but has been difficult for her to gain access. (3) Polio: Plan: She had polio at the age of 8 and has been disabled her entire life. She has managed very well. She has ambulatory dysfunction in her lower extremities, wears braces and walks with crutches and has been able to live a full life. She does like to wear her braces most of the time as she likes to be able to get up and move around. At home she takes her braces off at night and ambulates to the bathroom with her crutches during the night and has not had any problems with falls with this. However while she is here in the hospital she may be resistant to removing her braces. Plan I have spent 82 minutes in the care of this patient today. This includes time [id number], review and ordering of diagnostic imaging and laboratory studies and consultation with other providers. Monitoring the patient's signs symptoms, evaluation of medication effectiveness and patient's response to treatment. Lab Results Lab results reviewed: Yes 02/01/25 15:34 02/01/25 15:34 Diagnostic Imaging Results Diagnostic Imaging Results: positive Final report reviewed Diagnostic Imaging Results Comments: CT of the abdomen pelvis shows small bowel obstruction with transition point in the left lower quadrant. There is a small amount of free fluid in the left lower quadrant which is likely reactive. Large hiatal hernia Core Measures Anticipated LOS I expect patient to be DC'd or transferred within 96 hours.: Yes DVT/VTE - Prophylaxis VTE/DVT Device ordered at admit?: Yes VTE/DVT Prophylaxis med ordered at admit?: Yes
[2025-02-01] MEDS ORDERED: SODIUM CHLORIDE FLUSH 0.9% 10 ML SYRINGE IVP PRN (22:06)
[2025-02-01] MEDS ORDERED: ONDANSETRON 4 MG/2 ML VIAL IVP PRN (22:06)
[2025-02-01] MEDS ORDERED: ACETAMINOPHEN 1,000 MG/100 ML 1,000 MG/100 ML BAG IV PRN (22:06)
[2025-02-01] MEDS ORDERED: HYDROmorphone 0.5 MG/0.5 ML SYRINGE IVP PRN (22:06)
[2025-02-01] MEDS: HYDROmorphone 1 MG/ML CARPUJECT IVP STA (22:12)
[2025-02-01] MEDS: LACTATED RINGERS 1,000 ML IV SCH (22:24)
[2025-02-02] MEDS: SODIUM CHLORIDE FLUSH 0.9% 10 ML SYRINGE IVP SCH (04:26)
[2025-02-02] MEDS: ENOXAPARIN 40 MG/0.4 ML SYRINGE SUBQ SCH (08:19)
--- NOTE | 2025-02-02 09:55 | CONSULTATION NOTE ---
Referring Provider Consult Date: 02/02/25 Chief Complaint Chief Complaint Chief Complaint: I was having a lot of pain last night. History of Present Illness Admitted From Admitted From:: ED History Obtained From Records Reviewed: yes History obtained from: patient, primary team (Dr. Vences), chart Exam Limitations: none History of Present Illness HPI Comment/Other: Patient reports she started having severe abdominal cramping yesterday morning, which felt similar to when she had a bowel perforation several years ago. The pain was sharp and constant. It was associated with nausea but no vomiting. After the onset of symptoms, the patient had two bowel movments but her pain continued to worsen, prompting her to come to the ED last night. Workup in the ED was consistent with a small bowel obstruction (she's had one prior SBO in 2022, which resolved with conservative management). She was not having significant nausea or vomiting at the time of admission, so an NG tube was not placed. This morning, the patient is feeling much better, denies pain or nausea, and is passing flatus and feeling thirsty and hungry. PFSH Active Problems All Active Problems SBO (small bowel obstruction) (Acute) Medical History Medical History Polio Osteoporosis Bowel obstruction Perforated bowel Surgical History Surgical History History of appendectomy History of bowel resection History of hysterectomy Social History Social History Smoking Status: Never smoker Second hand tobacco smoke exposure: No Do you dip or chew tobacco?: No Do you vape?: No Living arrangement: At home Living Condition: With spouse/s.o. Level: Independent Home Mobility Equipment: Cane Do you feel safe in your home environment?: Yes History of physical, verbal, emotional, or financial abuse?: No Substance Use: denies use POLST Patient has POLST: No Meds/Allgy Home Medications Ambulatory Orders Medication Instructions Recorded Confirmed omeprazole 40 mg capsule,delayed 40 mg PO QDAC 0 02/02/25 release meloxicam 7.5 mg tablet 7.5 mg PO DAILY PRN Pain 1-4 01/31/23 02/02/25 aspirin 81 mg tablet,delayed 81 mg PO DAILY 02/02/25 0 02/02/25 release teriparatide 20 mcg/dose (560 20 mcg subcut DAILY 10/2202/02/25 mcg/2.24 mL) subcutaneous pen injector Allergies Allergies Allergy/AdvReac Type Severity Reaction Status Date / Time erythromycin base Allergy Rash Verified 02/01/25 15:03 indomethacin Allergy Unknown Verified 02/01/25 15:03 Latex, Natural Rubber Allergy Rash, Verified 02/01/25 15:03 blisters Sulfa (Sulfonamide Allergy Dizziness Verified 02/01/25 15:03 Antibiotics) Results Lab Results Lab results reviewed: Yes 02/01/25 15:34 02/01/25 15:34 Other Lab Results: Lab Results x24hrs 02/01/25 Range/Units 15:34 WBC 6.9 (4.8-10.8) x10^3/uL RBC 4.42 (4.20-5.40) 10^6/uL Hgb 13.0 (12.0-16.0) g/dL Hct 40.1 (37.0-47.0) % MCV 90.7 (81.0-99.0) fL MCH 29.4 (27.0-31.0) pg MCHC 32.4 (32.0-36.0) g/dL RDW 13.2 (12.0-15.0) % Plt Count 198 (130-450) 10^3/uL MPV 10.6 (7.9-10.8) fL Neut # (Auto) 5.4 (1.5-6.6) 10^3/uL Lymph # (Auto) 0.9 L (1.5-3.5) 10^3/uL Ogle # (Auto) 0.4 (0.0-1.0) 10^3/uL Eos # (Auto) 0.2 (0.0-0.7) 10^3/uL Baso # (Auto) 0.1 (0.0-0.1) 10^3/uL Absolute Nucleated RBC 0.00 x10^3/uL Nucleated RBC % 0.0 /100WBC Sodium 143 (135-145) mmol/L Potassium 3.9 (3.5-4.5) mmol/L Chloride 104 (101-111) mmol/L Carbon Dioxide 32 (21-32) mmol/L Anion Gap 7.0 (6-13) BUN 34 H (6-20) mg/dL Creatinine 0.6 (0.6-1.3) mg/dL Estimated GFR (MDRD) 96 (>89) Glucose 90 (74-104) mg/dL Calcium 10.6 H (8.5-10.3) mg/dL Total Bilirubin 0.5 (0.2-1.0) mg/dL AST 22 (10-42) IU/L ALT 15 (10-60) IU/L Alkaline Phosphatase 110 (42-121) IU/L Total Protein 7.1 (6.4-8.9) g/dL Albumin 4.5 (3.2-5.5) g/dL Globulin 2.6 (2.1-4.2) g/dL Albumin/Globulin Ratio 1.7 (1.0-2.2) Lipase 14 (11-82) U/L Diagnostic Imaging Results Diagnostic Imaging Results: positive Final report reviewed and Read independently Diagnostic Imaging Results Comments: CT abd/pelvis on 02/01 demonstrates a small bowel obstruction with dilation of bowel to 3.2cm, and a small amount of fluid in LLQ near likely transition point. No free air. Review of Systems Status of ROS: 10 or more systems reviewed and unremarkable except as noted in history and below Exam Exam Vital Signs: Vital Signs x48h Temp Pulse Resp BP Pulse Ox 02/02/25 08:50 97.5 F L 72 12 161/79 H 97 02/02/25 04:35 97.9 F 69 16 116/72 97 GEN: No acute distress, appears younger than stated age, alert and oriented HEENT: NCAT, dry mucous membranes, EOMI NEURO: CN II-XII grossly intact, ambulates with crutches, LLE in brace CV: RRR PULM: non labored, on RA ABD: soft, non tender, no rebound or guarding CIRCULATORY: no clubbing, cyanosis, or edema SKIN: no lesions appreciated LYMPH: no obvious lymphadenopathy MSK: 09/01 strength B UE, and R LE PSYCH: Affect is appropriate Conclusion/Plan Problem List (1) SBO (small bowel obstruction): (2) Osteoporosis: (3) Polio: Plan 80 y/o F admitted with small bowel obstruction (SBO). 1. SBO - Patient feeling much better this morning but also reports more bloating for the last couple of weeks. - I discussed the patient with the primary team and ordered a small bowel follow through (SBFT) this morning. If contrast moves through without signs of persistent obstruction (current symptoms suggest this may very well be the case), recommend adat and discharge when able to tolerate a diet. - If SBFT demonstrates persistent obstruction, would consider NG decompression vs surgical managment. I have discussed this plan of care with the patient who hopes to avoid surgery. 2. osteoporosis, polio - as per primary team Thank you for consulting me in the care of this patient! Surgery will continue to follow closely. Lab Results Lab results reviewed: Yes 02/01/25 15:34 02/01/25 15:34 Diagnostic Imaging Results Diagnostic Imaging Results: positive Final report reviewed and Read independently
--- NOTE | 2025-02-02 11:35 | PHARMACY PROGRESS NOTE ---
Best Possible Medication History Admit Date and Time: 02/01/252110 Home Medications Medication Instructions Recorded Confirmed Type omeprazole 40 mg capsule,delayed 40 mg PO QDAC 0 02/02/25 History release meloxicam 7.5 mg tablet 7.5 mg PO DAILY PRN Pain 1-4 01/31/23 02/02/25 History aspirin 81 mg tablet,delayed 81 mg PO DAILY 02/02/25 0 02/02/25 History release teriparatide 20 mcg/dose (560 20 mcg subcut DAILY 10/2202/02/25 History mcg/2.24 mL) subcutaneous pen injector Processed by: Pharmacy Medications reviewed in ED?: No Medication History completed: Yes Patient Interview: Completed (APPLICATION ASSISTANTMALLORY) Secondary Source(s): Insurance records [facility] Statement: As the person ultimately responsible for medication therapy, providers are able to order a medication from an existing home medication list in [facility] via the "Reconcile Routine" prior to Confirmation of that medication by sales support advisor. Such practice is discouraged except when the physician, in their clinical judgment, deems that a medical need exists for a medication without regard to previous use.
[2025-02-02] MEDS ORDERED: DIATR MEGLU/DIATRIZOATE SODIUM 120 ML BOTTLE ONE (14:43)
--- NOTE | 2025-02-02 18:05 | Discharge Summary ---
"Discharge Summary Admit Date: 02/01/25 Discharge Date: 02/02/25 Discharging Provider: Rebekah Brandon PA-C Primary Care Provider: Estelle Tatum MD Code Status: Do Not Attempt Resuscitation DIAGNOSES Discharge Diagnoses with Status of Each Condition: Small bowel obstruction, resolved. 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 She has a history of small bowel obstruction once in January 2023 and this feels like similar. Her surgical history consists of exploratory surgery for ruptured diverticulitis, the perforation was never found at the time of that surgery, large bowel resection for colonic stricture in March 2020, by Dr. Colby Pagan, appendectomy in 2018 and hysterectomy 40 years ago.. As mentioned previously she started to have abdominal pain midmorning today. Since the onset of her abdominal pain she has had 2 formed bowel movements. She has been having some nausea but has not vomited. She has not eaten anything today. She complains of crampy abdominal pain that seems to be a little bit better when she is able to walk. She lives with her of many years. Both she and her are in good health and active. She walks with crutches and braces but this has been the case for her entire life and she has learned to adapt and live well with it. She is retired from [employer]. Her primary care doctor is Dr. Kevin Tatum at [facility] in [place]. For CODE STATUS she wishes to be DNR. She states this to me without hesitation CONSULTS | PROCEDURES Procedures: CT abdomen pelvis: Findings most consistent with small bowel obstruction with transition point left lower quadrant. There is a small amount of free fluid in the left lower quadrant which is likely reactive. Incidentally seen is a large hiatal hernia. Levoscoliosis. Small bowel follow-through at 2 hours and 15 minutes to my read shows contrast in the colon. HOSPITAL COURSE Hospital Course: 80-year-old female who is overall very healthy presents to the emergency department with small bowel obstruction. History of 1 previous SBO in January 2023 and surgical history as listed above. She was treated with supportive care, IV fluids and sips of clears at will. In the morning she felt better she had not had a bowel movement. General surgery was consulted and recommended Gastrografin with small bowel follow-through. Within 2 hours after administration of Gastrografin she had a large bowel movement. She then tolerated a regular diet for dinner and was discharged home in the care of her . ALLERGIES Allergies Allergy/AdvReac Type Severity Reaction Status Date / Time erythromycin base Allergy Rash Verified 02/01/25 15:03 indomethacin Allergy Unknown Verified 02/01/25 15:03 Latex, Natural Rubber Allergy Rash, Verified 02/01/25 15:03 blisters Sulfa (Sulfonamide Allergy Dizziness Verified 02/01/25 15:03 Antibiotics) MEDICATIONS Ambulatory Orders Medication Instructions Recorded Confirmed omeprazole 40 mg capsule,delayed 40 mg PO QDAC 0 02/02/25 release meloxicam 7.5 mg tablet 7.5 mg PO DAILY PRN Pain 1-4 01/31/23 02/02/25 aspirin 81 mg tablet,delayed 81 mg PO DAILY 02/02/25 0 02/02/25 release teriparatide 20 mcg/dose (560 20 mcg subcut DAILY 10/2202/02/25 mcg/2.24 mL) subcutaneous pen injector PHYSICAL EXAM AT DISCHARGE Vital Signs: Vital Signs x48h Temp Pulse Resp BP Pulse Ox 02/02/25 17:00 36.4 C L 74 18 129/86 99 02/02/25 12:29 36.4 C L 73 18 160/89 H 98 General Appearance: positive No acute distress and Alert Eyes Bilateral: positive Normal inspection and Conjunctivae nml ENT: positive ENT inspection nml Neck: positive Nml inspection Cardiovascular: positive Regular rate & rhythm Abdomen: positive Non-tender, Nml bowel sounds and No distention Skin: positive Color nml Extremities: positive Other (Braces in place.) Neurologic/Psychiatric: positive Oriented x3 LABS 02/01/25 15:34 02/01/25 15:34 FOLLOW UP Follow Up: You PCP 7 to 10 days for hospital follow-up. No indication for general surgery follow-up. TIME SPENT Time Spent in Discharge (Minutes): 40 Discharge Plan Discharge Patient Disposition: Home, Self Care Prescriptions: Continued omeprazole 40 MG capsule,delayed release(DR/EC) 40 mg PO QDAC Patient Comments: take 1 capsule by mouth once daily 30 MINUTES BEFORE BREAKFAST meloxicam 7.5 MG tablet 7.5 mg PO DAILY PRN (Reason: Pain 1-4) Patient Comments: take 1 tablets by mouth once daily teriparatide 20 mcg/dose (560mcg/2.24mL) pen injector 20 mcg SUBCUT DAILY Patient Comments: ADMINISTER 0.08 ML UNDER THE SKIN DAILY aspirin 81 mg tablet,delayed release (DR/EC) 81 mg PO DAILY Diet: Regular Health Concerns: You came into the hospital with a small bowel obstruction. We saw this on a CT scan of your abdomen. This is probably related to scarring within your abdominal cavity from previous surgeries. There is nothing you did wrong to make this happen. There is nothing you ate or did not eat that made this happen. We brought you into the hospital and did not place an NG tube. We treated you supportively with IV fluids and allow your bowels to rest. Things were looking better on the morning after admission and were able to give you some x-ray dye that helps untwist your bowels and helped things to start move again. You were able to tolerate a regular diet and therefore we are discharging you home. Go back to your normal patterns. It is okay for you to eat and drink what you want to eat and drink. Eat what you know is good for your body. There is no specific diet that you need to follow at this time. t is always a good idea to avoid constipation so you want to do what your body needs to do to do that. Print Language: Jamaican Patient Instructions: Small Bowel Obstruction Stand Alone Forms: PCP List Follow-up Care: ESTELLE TATUM [Primary Care Provider, Internal Medicine]"
--- NOTE | 2025-02-02 18:30 | XRAY Report ---
PROCEDURE: XR SBFT Challenge Panel INDICATIONS: SBO COMPARISON: CT abdomen and pelvis dated 02/01/2025 CONTRAST: Oral contrast FLUOROSCOPY TIME: 16.3 uGy*m2 FINDINGS: KUB: Initial/immediate AP film demonstrates a opacification of a normal- appearing stomach and pyloric region. Nonspecific bowel gas pattern without findings to suggest obstruction. No suspicious abdominal calcifications. Visualized solid organ contours appear normal. No suspicious bony abnormalities. Small bowel: There is normal transit time of barium through the small bowel. Small bowel loops are of normal caliber throughout. Mucosal folds are smooth and of normal thickness. No strictures, intraluminal masses, or extrinsic mass effects are noted. The terminal ileum is identified, and is normal in morphology. IMPRESSION: Unremarkable small bowel follow-through. Oral contrast appears to transit from the stomach to the colon without findings to suggest small bowel obstruction. Reviewed by: Corey Beard MD on 02/02/2025 6:29 PM PDT Approved by: Corey Beard MD on 02/02/2025 6:29 PM PDT Station ID: [id number]
[2025-02-02 19:22] VITALS: BP 155/89; TEMP 97.9; O2SAT 98
== END 2025-02-02 19:10 | disposition home or self-care (01) ==
LOC: ED 14:48 → MS3 14:48
PROVIDERS: ADMIT Physician Assistant Medical; ATTEND Physician Assistant Medical
DX: G14 Postpolio syndrome; Z90.49 Acquired absence of other specified parts of digestive tract; M81.0 Age-related osteoporosis without current pathological fracture; Z66 Do not resuscitate; K56.609 Unspecified intestinal obstruction, unspecified as to partial versus complete obstruction